=== PATIENT | female | born 1955 | race Caucasian/White ===

== ENCOUNTER 2019-02-10 09:01 | Outpatient (CLI) | payer OTHER ==
--- NOTE | 2019-02-10 14:29 | NM ---
NUCLEAR MEDICINE WHOLE BODY BONE SCAN: 02/10/19 HISTORY: Malignant neoplasm of the upper outer quadrant of the left breast. COMPARISON: 02/23/15. TECHNIQUE: Patient was administered 32 millicuries of technetium 99 MDP intravenously. After appropriate delay, whole body imaging is performed. FINDINGS: There are multiple areas of radiotracer localization involving the calvarium suggesting multifocal ca lvarial metastases. Uptake in the sinuses likely due to sinus disease. Uptake in both shoulders, both hips is also felt to be due to degenerative change. There is multifoca l uptake involving the posterior left and right ribs as well as the anterior right and to a lesser ex tent left ribs. Multifocal osseous metastases to the bony thorax is suspected. Additionally, there ma y be radiotracer uptake in the right scapula suggesting osseous metastases. There is increased radiot racer localization involving the posterior right pedicle at approximately the T7 level, posterior rig ht pedicle at T11, bilateral pedicles at T12, the majority of the L1 vertebral body as well as the ma jority of the L5 vertebral body. There does appear to be uptake involving the right inferior pubic ra mus and right superior pubic ramus. IMPRESSION: Findings compatible with multifocal osseous metastases. POS: TPC
[2019-02-10 23:03] LABS: Anion Gap 15 mmol/L (10-20); BUN (Urea Nitrogen) 11 mg/dL (9.8-20.1); Calc. Creatinine Clearance 0 mL/min (70-130); Calcium 8.4 mg/dL (7.8-10.44); Carbon Dioxide 20 mmol/L (23-31); Chloride 106 mmol/L (98-107); Estimated GFR-MDRD 71; Potassium 3.8 mmol/L (3.5-5.1); Sodium 137 mmol/L (136-145)
[2019-02-10 23:07] LABS: Glucose 58 mg/dL (80-115)
== END 2019-02-10 09:02 | disposition home or self-care (01) ==
LOC: NM 09:01
PROVIDERS: ATTEND Internal Medicine Hematology & Oncology
DX: C50.412 Malignant neoplasm of upper-outer quadrant of left female breast (principal); C79.51 Secondary malignant neoplasm of bone
CPT/HCPCS: 78306; 80048; A9503

== ENCOUNTER 2019-02-15 07:27 | Outpatient (CLI) | payer OTHER ==
--- NOTE | 2019-02-15 09:14 | CT ---
EXAM: CT chest, abdomen, and pelvis with IV contrast: HISTORY: Malignant neoplasm left breast, metastatic bone disease. COMPARISON: 02/20/2016 as well as bone scan on 02/10/2019. FINDINGS: CT THORAX: Lungs: No discrete pulmonary nodule or mass is seen. Passive atelectasis is present at each lung base . Pleura: Small bilateral pleural effusions are present. Lymph nodes: No lymphadenopathy. Mediastinum: Vascular calcifications are seen in the thoracic aorta. The thoracic aorta is normal in caliber. Chest wall: Postsurgical changes related to left mastectomy are again seen. The right subclavian Medi port catheter has been removed. CT ABDOMEN AND PELVIS: Liver: There are stable scattered subcentimeter too small to characterize hypodense lesions in each l obe of the liver with a larger hypodense lesion measuring 2.2 cm again seen within the central liver at the level of the confluence of the hepatic veins. Gallbladder: Within normal limits. Pancreas: Within normal limits. Spleen: Within normal limits. Adrenal glands: Within normal limits. Kidneys: Within normal limits. Urinary Bladder: The urinary bladder is unremarkable. Reproductive organs: Within normal limits for patient's age. Bowel: Normal in caliber. Adenopathy:No lymphadenopathy within the abdomen or pelvis. Peritoneum: No free fluid or fluid collection is seen. No free intraperitoneal gas is identified. Abdominal wall: No abnormalities seen. Vessels: Vascular calcifications are seen in the abdominal aorta and involving the iliac arteries. 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 Osseous structures: There has been interval development of multiple sclerotic and lytic osseous lesio ns involving bilateral ribs, spine, and involving the pelvis and visualized proximal bilateral femurs. There are nondisplaced pathological fractures involving the posterior bilateral sixth ribs an d posterior left seventh rib as well as a nondisplaced pathological fracture involving the right inferior pubic ramus. There are lytic and sclerotic metastatic lesions involving the L1 and L3 verteb ral bodies with wedge-shaped compression fracture involving the L1 vertebral body which probably represents pathological fracture. There is also irregularity of the superior and inferior endplates o f the L3 vertebral body. Mild wedge-shaped compression fracture T6 vertebral body of indeterminate age. Largest sclerotic metastatic lesion involving the right iliac bone measures 2.7 cm. Remainder of the sclerotic lesions seen throughout the osseous structures measure less than 1 cm. There is a sclerotic lesion present within the left scapula measuring less than 1 cm. Questionable lytic lesion within the distal left clavicle. IMPRESSION: 1. Interval development of diffuse osseous metastatic disease with sclerotic and lytic osseous metast atic lesions seen. There are evidence of pathological fractures involving bilateral posterior sixth ribs and left posterior seventh rib, and right inferior pubic ramus. A wedge-shaped compression fract ure is seen involving the L1 vertebral body which also may be pathological. Slight height loss along the central aspect of the superior and inferior endplates of the L3 vertebral body are also pre sent. 2. Small basilar pleural effusions and associated passive atelectasis. 3. Hypodense lesions scattered within each lobe of the liver overall stable from the prior study with stable focus of enhancement within the inferior aspect of the right hepatic lobe which again may relate to small vascular malformation. 4. No evidence of lymphadenopathy. 5. Left mastectomy. 6. Wedge-shaped compression fracture T6 vertebral body of indeterminate age.
--- NOTE | 2019-02-15 10:34 | CT ---
CT HEAD WITH AND WITHOUT CONTRAST: 02/15/2019 HISTORY: Left-sided breast cancer with osseous metastatic disease. COMPARISON: None. TECHNIQUE: Axial CT imaging is obtained at 5 mm intervals from the vertex, through the skull base, with and with out IV contrast. FINDINGS: The calvarial bone marrow density is mottled with multiple subtle areas of lucency within the calvari um, suspicious for numerous tiny osseous metastatic foci. The imaged paranasal sinuses and mastoid a ir cells are well aerated. The noncontrast enhanced imaging demonstrates no intracranial hemorrhage, midline shift, mass effect, or ventricular enlargement. The post contrast imaging demonstrates no abnormal enhancement within the brain parenchyma. IMPRESSION: No intracranial hemorrhage. No enhancing lesions are identified within the brain parenchyma. Raheel us tiny areas of lucency within the calvarium are suspicious for osseous metastatic disease, as seen on recent bone scan, performed 02/10/2019. POS: OFF
[2019-02-15] MEDS ORDERED: Iopamidol 370 76% 100 ML VIAL ONE (13:11)
== END 2019-02-15 07:28 | disposition home or self-care (01) ==
LOC: CT 07:27
PROVIDERS: ATTEND Internal Medicine Hematology & Oncology
DX: C50.412 Malignant neoplasm of upper-outer quadrant of left female breast (principal); C79.51 Secondary malignant neoplasm of bone; M84.58XA Pathological fracture in neoplastic disease, other specified site, initial encounter for fracture; J90 Pleural effusion, not elsewhere classified; J98.11 Atelectasis; Z90.12 Acquired absence of left breast and nipple
CPT/HCPCS: 70470; 71260; 74177; Q9967

== ENCOUNTER 2019-05-10 11:21 | Day surgery (SDC) | payer OTHER ==
[2019-05-10] MEDS ORDERED: Sodium Chloride 0.9% 20 ML ONE (11:52)
[2019-05-10] MEDS ORDERED: Acetaminophen 500 MG TAB PO PRN (11:59)
[2019-05-10] MEDS ORDERED: diphenhydrAMINE 25 MG CAP PO PRN (12:00)
[2019-05-10 16:34] VITALS: BP 111/54; TEMP 98.7
== END 2019-05-10 16:35 | disposition home or self-care (01) ==
LOC: ONC/OP 11:21
PROVIDERS: ATTEND Internal Medicine Hematology & Oncology
PROC: 30233N1 Transfusion of Nonautologous Red Blood Cells into Peripheral Vein, Percutaneous Approach (ICD-10-PCS; principal; 2019-05-10)
DX: D64.9 Anemia, unspecified (principal); D69.6 Thrombocytopenia, unspecified; Z91.018 Allergy to other foods
CPT/HCPCS: 36430; 86850; 86900; 86901; P9016; Q0163

== ENCOUNTER 2019-06-03 08:49 | Day surgery (SDC) | payer OTHER ==
[2019-06-03] MEDS ORDERED: Sodium Chloride 0.9% 20 ML ONE (09:07)
[2019-06-03] MEDS ORDERED: Acetaminophen 500 MG TAB PO SCH (09:45)
[2019-06-03] MEDS ORDERED: diphenhydrAMINE 25 MG CAP PO SCH (09:45)
[2019-06-03 12:46] VITALS: BP 126/60; TEMP 98.6
== END 2019-06-03 12:46 | disposition home or self-care (01) ==
LOC: ONC/OP 08:49
PROVIDERS: ATTEND Internal Medicine Hematology & Oncology
PROC: 30233N1 Transfusion of Nonautologous Red Blood Cells into Peripheral Vein, Percutaneous Approach (ICD-10-PCS; principal; 2019-06-03)
DX: D64.9 Anemia, unspecified (principal); D69.6 Thrombocytopenia, unspecified
CPT/HCPCS: 36430; 86850; 86900; 86901; P9016; Q0163

== ENCOUNTER 2019-06-28 08:57 | Outpatient (CLI) | payer OTHER ==
--- NOTE | 2019-06-28 10:47 | CT ---
EXAM: CT chest, abdomen, and pelvis with IV contrast: HISTORY: Left breast cancer with metastatic osseous disease. Follow-up evaluation. COMPARISON: 02/15/2019 FINDINGS: CT THORAX: Lungs: No pulmonary nodule or mass is visualized. Scattered linear atelectasis versus scarring is see n at each lung base. Pleura: Pleural effusions have resolved. Lymph nodes: No lymphadenopathy. Mediastinum: Vascular calcifications are seen in the thoracic aorta. Chest wall: Postsurgical changes related to left mastectomy are again seen. CT ABDOMEN AND PELVIS: Liver: Stable subcentimeter too small to characterize hypodense lesions are again seen throughout eac h lobe of the liver as well as a larger 2.3 cm fluid attenuation cystic lesion in the left hepatic lobe just anterior to the level of the hepatic IVC. This does measure slightly larger in size compare d to prior study. Gallbladder: Incompletely distended.\ Pancreas: Within normal limits. Spleen: Within normal limits. Adrenal glands: Within normal limits. Kidneys: There is mild bilateral hydronephrosis which is an interval change. The ureters do not appea r to be particularly dilated bilaterally. Kidneys otherwise demonstrate a normal CT appearance. Urinary Bladder: Incompletely distended but grossly normal in appearance. Reproductive organs: There is suggestion of a subtle hypodense lesion seen in the posterior aspect kate dy of the uterus. This may be artifactual, but a uterine fibroid is a possibility. Pelvic ultrasound may be helpful for further evaluation. Bowel: Normal in caliber. Adenopathy:No lymphadenopathy within the abdomen or pelvis. Peritoneum: No free fluid or fluid collection is seen. No free intraperitoneal gas is identified. Abdominal wall: No abnormalities seen. Osseous structures: There is diffuse osseous metastatic disease with lytic and sclerotic lesions seen involving multiple bilateral ribs, essentially all of the vertebral bodies, pelvis, each scapula, and proximal femurs. The metastatic lesions do appear to be progressed involving the thoracic spine a nd pelvis. Compression fractures involving the L1 and L3 vertebral bodies are again noted. Compression fractures of the T6, T7, and T8 vertebral bodies are also seen with mild wedge-shaped com pression fractures of these vertebral bodies. There are evidence of rib fractures bilaterally likely related to pathological fractures. IMPRESSION: 1. Diffuse osseous metastatic disease which has progressed from prior study with wedge-shaped peter jorge luis fractures of thoracic and lumbar vertebral bodies likely attributable to pathological fractures. In addition, there are pathological fractures seen scattered involving ribs bilaterally. 2. Resolution of bilateral pleural effusions. 3. Scattered hypodense lesions again seen in each lobe of the liver. Small enhancing focus in the inf erior aspect right hepatic lobe is less well delineated on today's exam. 4. Left mastectomy. 5. No evidence of lymphadenopathy. 6. Question of hypodense lesion in the posterior aspect of the uterus. However, this is not well-defi anel. Follow-up pelvic ultrasound may be helpful for further evaluation. 7. Mild bilateral hydronephrosis which is an interval change. The exact etiology is uncertain. The ur eters are not dilated bilaterally.
[2019-06-28] MEDS ORDERED: Iopamidol 370 76% 100 ML VIAL ONE (13:16)
--- NOTE | 2019-06-28 15:30 | NM ---
BONE SCAN: The patient was given 30 mCi of technetium-MDP IV. Whole body skeletal images obtained. INDICATION: Breast cancer with osseous metastatic disease. Comparison made to prior bone scan dated 02/10/19. FINDINGS: There has been progression of metastatic bone disease when compared to the prior bone scan. Increasin g activity is now seen in the thoracic and upper lumbar spine when compared to prior study. Numerous rib lesions are again seen, which appear more extensive than on the prior study. There are blotchy le sions involving the calvarium on the frontal projection. Activity through the left sacrum is new from the prior study on the AP view. There are areas of abnor mal activity in the pelvis which appears to involve both the ischium and hip regions. Activity at the left hip is again seen, similar to the prior study. Activity in the right hip seen on the posterior images are also similar to the prior study. IMPRESSION: Evidence of diffuse osseous metastatic disease again noted. Activity in the thoracic spine and rib ca ge appear to have progressed since the prior exam. Activity in the anterior left sacrum has increased since the prior exam. The other pelvic activity appears relatively stable. POS: VINCENT
== END 2019-06-28 08:58 | disposition home or self-care (01) ==
LOC: CT 08:57
PROVIDERS: ATTEND Internal Medicine Hematology & Oncology
DX: C50.412 Malignant neoplasm of upper-outer quadrant of left female breast (principal); C79.51 Secondary malignant neoplasm of bone; R97.1 Elevated cancer antigen 125 [CA 125]; K76.89 Other specified diseases of liver; K76.9 Liver disease, unspecified; M48.56XA Collapsed vertebra, not elsewhere classified, lumbar region, initial encounter for fracture; M48.54XA Collapsed vertebra, not elsewhere classified, thoracic region, initial encounter for fracture; N13.30 Unspecified hydronephrosis; Z90.12 Acquired absence of left breast and nipple
CPT/HCPCS: 71260; 74177; 78306; 82565; A9503; Q9967

== ENCOUNTER 2019-07-01 08:51 | Day surgery (SDC) | payer OTHER ==
[2019-07-01] MEDS ORDERED: Acetaminophen 500 MG TAB PO SCH (09:15)
[2019-07-01] MEDS ORDERED: diphenhydrAMINE 25 MG CAP PO SCH (09:15)
[2019-07-01] MEDS ORDERED: diphenhydrAMINE 50 MG/ML VIAL ONE (11:44)
[2019-07-01] MEDS ORDERED: diphenhydrAMINE 50 MG/ML VIAL IVP SCH (12:00)
[2019-07-01] MEDS ORDERED: Sodium Chloride 0.9% 30 ML ONE (14:19)
[2019-07-01 15:20] VITALS: TEMP 98.6
[2019-07-01 15:24] VITALS: BP 126/63
== END 2019-07-01 15:30 | disposition home or self-care (01) ==
LOC: ONC/OP 08:51
PROVIDERS: ATTEND Internal Medicine Medical Oncology
PROC: 30233N1 Transfusion of Nonautologous Red Blood Cells into Peripheral Vein, Percutaneous Approach (ICD-10-PCS; principal; 2019-07-01)
DX: D64.9 Anemia, unspecified (principal); Z91.018 Allergy to other foods
CPT/HCPCS: 36430; 86850; 86900; 86901; J1200; P9016; Q0163

== ENCOUNTER 2019-07-20 12:48 | Observation (INO) | payer OTHER ==
[2019-07-20] MEDS ORDERED: Iopamidol-370 76% 500 ML 1 ML ONE (12:54)
[2019-07-20 13:40] LABS: Hemoglobin 6.9 g/dL (12.0-16.0); Mean Corpuscular HGB CONC 35.4 g/dL (32.0-36.0); Mean Corpuscular Volume 98.9 fL (78.0-98.0); Mean Platelet Volume 13.8 fL (7.4-10.4); Platelet Count 19 thou/uL (130-400); RBC Distribution Width 18.1 % (11.5-14.5); Red Blood Cell (RBC) Count 1.96 mill/uL (4.20-5.40); White Blood Cell (WBC) Count 1.5 thou/uL (4.8-10.8)
[2019-07-20 13:53] LABS: ALT (SGPT) 46 U/L (8-55); AST (SGOT) 111 U/L (5-34); Albumin 3.1 g/dL (3.4-4.8); Alkaline Phosphatase 144 U/L (40-110); Anion Gap 16 mmol/L (10-20); BUN (Urea Nitrogen) 14 mg/dL (9.8-20.1); Calc. Creatinine Clearance 0 mL/min (70-130); Carbon Dioxide 18 mmol/L (23-31); Chloride 107 mmol/L (98-107); Estimated GFR-MDRD 76; Globulin 2.7 g/dL (2.4-3.5); Glucose 102 mg/dL (80-115); Potassium 3.5 mmol/L (3.5-5.1); Protein, Total 5.8 g/dL (6.0-8.3); Sodium 137 mmol/L (136-145)
[2019-07-20 14:04] LABS: Anisocytosis MODERATE=16-30 cells (100X) (0-5/hpf); Band 5 % (5-11); Eosinophils 1 % (0-10); Hypochromia SLIGHT = 6-15 cells (100X) (0-5/hpf); Lymphocytes 50 % (21-51); MDiff Complete? YES; Macrocytosis SLIGHT = 6-15 cells (100X) (0-5/hpf); Monocytes 4 % (0-10); Neutrophil 40 % (42-75); Platelet Morphology Comment Appears Decreased; Polychromasia SLIGHT = 2-3 cells (100X) (0-2/hpf); Reflex for Review?? YES; Schistocytes SLIGHT = 2-5 cells (100X) (0-1/hpf); Tear Drops SLIGHT = 2-5 cells (100X) (0-1/hpf)
[2019-07-20] MEDS ORDERED: diphenhydrAMINE 50 MG/ML VIAL ONE (15:32)
--- NOTE | 2019-07-20 16:12 | RAD ---
EXAM: CHEST ONE VIEW HISTORY: Dyspnea. Neutropenic. COMPARISON: 02/21/2015 FINDINGS: Right subclavian Mediport catheter has been removed. The cardiac silhouette and pulmonary vasculature are within normal limits for the portable technique of the study. The lungs are clear. There are scattered areas of sclerosis and heterogeneity involving the ribs bilaterally related to osseous meta static disease which was seen on prior CT thorax on 06/28/2019. Vascular calcifications are seen in the thoracic aorta. Radiopaque catheter overlies the left supraclavicular region. No other interval c hange. IMPRESSION: 1. Scattered areas of sclerosis and heterogeneity involving bilateral ribs suggesting osseous metasta tic disease. 2. No acute cardiopulmonary process.
[2019-07-20 18:38] LABS: Troponin I Less than 0.010 ng/mL (< 0.028)
[2019-07-20] MEDS ORDERED: Acetaminophen 500 MG TAB ONE (19:03)
[2019-07-20] MEDS ORDERED: Acetaminophen 650 MG Suppository PR PRN (21:35)
[2019-07-20] MEDS ORDERED: Acetaminophen 325 MG TAB PO PRN (21:35)
[2019-07-20 21:42] VITALS: BMI 22.1
[2019-07-20 21:48] LABS: Troponin I Less than 0.010 ng/mL (< 0.028)
[2019-07-20] MEDS: Sodium Chloride 0.9% 1,000 ML IV SCH (22:47)
--- NOTE | 2019-07-20 23:43 | HP ---
TIME OF ASSESSMENT: 2100 hours. CHIEF COMPLAINT: Shortness of breath. HISTORY OF PRESENT ILLNESS: Ms. Gimenez is a very pleasant 63-year-old woman, with metastatic breast cancer to the bones, who presents with generalized weakness and shortness of breath. The patient states she has been short of breath for the last couple of months, but she manages to stay very active and is able to walk rather quickly. She states over the last few days, she has noted increasing shortness of breath with mild exertion. Denies any chest pain. Has not had any cough or hemoptysis. No recent fevers, chills, or sweats. Denies any nausea or vomiting. No abdominal pain or cramping. States she is known to have issues with anemia and has required three blood transfusions in the past, the last one was given in the beginning of July. Denies any signs or symptoms of bleeding. Also reports a history of low platelets. ED COURSE: In the emergency department, the patient underwent an EKG showing a normal sinus rhythm with a heart rate of 93. No ST changes or T-wave abnormalities. The patient was given 2 units of packed red blood cells and did develop a low-grade temperature of 99.9 during the transfusion, therefore treated with Tylenol and Benadryl. Laboratory studies had demonstrated her hemoglobin also was 6.9. Her platelets were 19,000. A unit of platelets was ordered as well, but has not yet been given. ADDITIONAL LABORATORY STUDIES: Notable for an elevated D-dimer of 2.24. Sodium was 137, potassium 3.5, BUN 14, creatinine 0.77, GFR 76, glucose 102, AST 111, alkaline phosphatase 144. Troponin negative x3. Chest x-ray obtained showed scattered areas of sclerosis and had rigidity involving bilateral ribs suggesting osseous metastasis. No acute cardiopulmonary process. PAST MEDICAL HISTORY: Metastatic breast cancer, undergoing chemotherapy under the direction of Dr. Calvillo. PAST SURGICAL HISTORY: 1. Tonsillectomy. 2. Left breast biopsy in January 2015. 3. MediPort placement in January 2014. 4. Left mastectomy. SOCIAL HISTORY: The patient denies any current tobacco use. The patient did smoke cigarettes previously. Denies any alcohol consumption or illicit drug use. ALLERGIES: 1. AVOCADO. 2. BRAZIL NUTS. CURRENT MEDICATIONS: 1. Tylenol Extra Strength. 2. Ibrance. PHYSICAL EXAMINATION: GENERAL: The patient appears well developed, well nourished, who is in no acute distress. VITAL SIGNS: Temperature 98.3, pulse 100, respirations 17, O2 saturation 95% on room air, and blood pressure 150/85. HEENT: Normocephalic and atraumatic. Pupils are equal, round, and reactive to light. Sclerae icterus. Oropharynx is clear. NECK: Supple. No lymphadenopathy. LUNGS: Clear to auscultation bilaterally without any wheezes, rales, or rhonchi. CARDIAC: Regular rate and rhythm without audible murmurs, rubs, or gallops. ABDOMEN: Soft, nontender, nondistended. Normoactive bowel sounds present. No guarding or rigidity. No renal angle tenderness. EXTREMITIES: No lower leg swelling or edema. NEUROLOGIC: Alert and oriented x3. SKIN: Warm and dry. INVESTIGATIONS: As mentioned above in HPI. IMPRESSION AND PLAN: Ms. Gimenez is a very pleasant 63-year-old woman with known metastatic breast cancer, who is receiving chemotherapy under the direction of Dr. Calvillo, being admitted for symptomatic anemia, known to require blood transfusions in the past. Hemoglobin today of 6.9, and the patient is without any signs or symptoms of bleeding. She is also noted to be thrombocytopenic with a platelet count of 19,000. Two units of packed red blood cells were given in the ER and she developed a transfusion related fever. She was medicated with Tylenol and Benadryl. The patient cleared to proceed with platelet transfusion. Her D-dimer was elevated with initial blood tests. Therefore, we will obtain a CT angiogram to rule out pulmonary embolism. The patient without any complaints at present. We will continue to monitor the patient overnight. Repeat laboratory studies in the morning. Oncology consult has been placed. Famotidine started for GI prophylaxis. Code status, full. Surrogate decision maker is her , Chuy Gimenez. Case discussed with Dr. Mccoy, who agrees with plan of care as described above. Job ID: [id number]
[2019-07-21] MEDS: Sodium Chloride 0.9% 1,000 ML IV SCH (00:40)
--- NOTE | 2019-07-21 06:43 | CT ---
CT PULMONARY ANGIOGRAM WITH IV CONTRAST AND 3D POSTPROCESSING: Date: 07/20/2019 HISTORY: Shortness of breath, elevated D-Dimer. Left breast cancer. FINDINGS: There is good contrast opacification of the pulmonary arterial vasculature without filling defects to suggest pulmonary embolism. The thoracic aorta is well opacified without aneurysm or dissection. No lobar consolidation. No pneumothoraces seen. There is a 4 mm nodule in the peripheral aspect of the r ight upper lobe not seen on the previous study of 06/28/2019. No pleural or pericardial effusions are seen. Low density lesions in the visualized portions of the liver again seen. Diffuse metastatic disease in the bones again seen. IMPRESSION: 1. No CT evidence of pulmonary embolism. 2. New 4 mm right lung nodule since 06/28/2019. POS: OFF
[2019-07-21 06:48] LABS: Anion Gap 11 mmol/L (10-20); BUN (Urea Nitrogen) 12 mg/dL (9.8-20.1); Calc. Creatinine Clearance 69 mL/min (70-130); Calcium 7.7 mg/dL (7.8-10.44); Carbon Dioxide 19 mmol/L (23-31); Chloride 110 mmol/L (98-107); Estimated GFR-MDRD 82; Glucose 97 mg/dL (80-115); Potassium 3.4 mmol/L (3.5-5.1); Sodium 137 mmol/L (136-145)
[2019-07-21 06:49] LABS: #Lymphocytes 0.8 thou/uL (1.20-3.40); #Monocytes 0.1 thou/uL (0.11-0.59); #Neutrophils 0.7 thou/uL (1.40-6.50); %Lymphocytes 48.4 % (21.0-51.0); %Monocytes 5.2 % (0.0-10.0); %Neutrophils 45.5 % (42.0-75.0); Hemoglobin 8.8 g/dL (12.0-16.0); Mean Corpuscular HGB CONC 35.8 g/dL (32.0-36.0); Mean Corpuscular Hemoglobin 32.6 pg (27.0-31.0); Mean Corpuscular Volume 91.1 fL (78.0-98.0); Mean Platelet Volume 10.7 fL (7.4-10.4); Platelet Count 35 thou/uL (130-400); RBC Distribution Width 16.6 % (11.5-14.5); Red Blood Cell (RBC) Count 2.69 mill/uL (4.20-5.40); White Blood Cell (WBC) Count 1.6 thou/uL (4.8-10.8)
[2019-07-21 06:50] LABS: Platelet Morphology Comment Appears Decreased
[2019-07-21] MEDS ORDERED: Famotidine/PF 20 mg/2ml Vial SLOW IVP SCH (09:00)
[2019-07-21] MEDS ORDERED: FLU VACC QS2019-20(6MOS UP)/PF 60 MCG/0.5 ML SYRINGE IM ONE (09:00)
[2019-07-21 10:57] VITALS: TEMP 98.6
[2019-07-21] MEDS ORDERED: Potassium Chloride 20 MEQ TAB PO SCH (13:45)
[2019-07-21 14:52] VITALS: BP 114/72
--- NOTE | 2019-07-21 23:12 | DIS ---
DATE OF ADMISSION: 07/20/2019 DATE OF DISCHARGE: 07/21/2019 DISCHARGE DISPOSITION: Home. FOLLOWUP: 1. Follow up with primary care physician, Dr. Morley, in 1 week. 2. Follow up with Oncology, Dr. Calvillo, as scheduled. ALLERGIES: NO KNOWN DRUG ALLERGIES. DISCHARGE MEDICATIONS: Same as admission medications. BRIEF HOSPITAL COURSE: The patient is a 63-year-old female with metastatic breast cancer, presented to the hospital with generalized weakness along with shortness of breath. A workup in the emergency room was consistent with symptomatic anemia with a hemoglobin of 6.9. She received 2 units of PRBC. She also received 1 unit of platelet due to platelet of 19. There was no active bleeding reported. She was advised to follow up with Oncology Service as outpatient. Dr. Calvillo's office was notified. Shortness of breath has improved after blood transfusion. FINAL DIAGNOSES: 1. Symptomatic anemia, improved. 2. Metastatic breast cancer. 3. Pancytopenia suspected secondary to chemotherapy. 4. Chronic kidney disease stage 2. 5. Hypokalemia. The patient understands the above plan of care. Job ID: [id number]
== END 2019-07-21 15:35 | disposition home or self-care (01) ==
LOC: ERS 12:48 → T4-B 16:07
PROVIDERS: ADMIT Emergency Medicine; ATTEND Emergency Medicine
DX: D64.9 Anemia, unspecified (principal); C50.919 Malignant neoplasm of unspecified site of unspecified female breast; C79.51 Secondary malignant neoplasm of bone; D61.818 Other pancytopenia; N18.2 Chronic kidney disease, stage 2 (mild); E87.6 Hypokalemia; Z87.891 Personal history of nicotine dependence; Z79.899 Other long term (current) drug therapy; Z91.018 Allergy to other foods; R91.1 Solitary pulmonary nodule
CPT/HCPCS: 36415; 36430; 71045; 71275; 80048; 80053; 82248; 83615; 84100; 84484; 84550; 85025; 85060; 85379; 86300; 86850; 86900; 86901; 90471; 90732; 93005; 96361; 96374; 96375; G0009; G0378; J1200; P9016; P9035; Q9967; S0028

== ENCOUNTER 2019-08-05 08:51 | Day surgery (SDC) | payer OTHER ==
[2019-08-05] MEDS ORDERED: Acetaminophen 500 MG TAB PO SCH (10:30)
[2019-08-05] MEDS ORDERED: diphenhydrAMINE 25 MG CAP PO SCH (10:30)
[2019-08-05 13:44] VITALS: TEMP 98.7
[2019-08-05 14:00] VITALS: BP 146/60
== END 2019-08-05 14:03 | disposition home or self-care (01) ==
LOC: ONC/OP 08:51
PROVIDERS: ATTEND Internal Medicine Hematology & Oncology
PROC: 30233N1 Transfusion of Nonautologous Red Blood Cells into Peripheral Vein, Percutaneous Approach (ICD-10-PCS; principal; 2019-08-05)
DX: D64.9 Anemia, unspecified (principal); D69.6 Thrombocytopenia, unspecified; Z91.018 Allergy to other foods
CPT/HCPCS: 36430; 86850; 86900; 86901; P9016; Q0163

== ENCOUNTER 2019-08-19 11:29 | Day surgery (SDC) | payer OTHER ==
[2019-08-19] MEDS ORDERED: Acetaminophen 500 MG TAB PO SCH (12:00)
[2019-08-19] MEDS ORDERED: diphenhydrAMINE 25 MG CAP PO SCH (12:00)
[2019-08-19 14:19] VITALS: BP 119/56; TEMP 98.4
== END 2019-08-19 14:20 | disposition home or self-care (01) ==
LOC: ONC/OP 11:29
PROVIDERS: ATTEND Internal Medicine Hematology & Oncology
PROC: 30233R1 Transfusion of Nonautologous Platelets into Peripheral Vein, Percutaneous Approach (ICD-10-PCS; principal; 2019-08-19)
DX: D69.6 Thrombocytopenia, unspecified (principal); D64.9 Anemia, unspecified; Z91.018 Allergy to other foods
CPT/HCPCS: 36430; 80053; 82248; 83615; 84100; 84550; 86300; 86850; 86900; 86901; P9035; Q0163

== ENCOUNTER 2019-08-26 08:51 | Day surgery (SDC) | payer OTHER ==
[2019-08-26] MEDS ORDERED: Acetaminophen 500 MG TAB PO SCH (09:15)
[2019-08-26] MEDS ORDERED: diphenhydrAMINE 25 MG CAP PO SCH (09:15)
[2019-08-26] MEDS ORDERED: Sodium Chloride 0.9% 30 ML ONE (09:18)
[2019-08-26] MEDS ORDERED: diphenhydrAMINE 50 MG/ML VIAL ONE (12:05)
[2019-08-26] MEDS ORDERED: diphenhydrAMINE 50 MG/ML VIAL IVP SCH (12:45)
[2019-08-26 13:44] LABS: Hemoglobin 6.8 g/dL (12.0-16.0); Mean Corpuscular HGB CONC 35.7 g/dL (32.0-36.0); Mean Corpuscular Hemoglobin 32.6 pg (27.0-31.0); Mean Corpuscular Volume 91.4 fL (78.0-98.0); Mean Platelet Volume 7.9 fL (7.4-10.4); Platelet Count 91 thou/uL (130-400); RBC Distribution Width 16.5 % (11.5-14.5); Red Blood Cell (RBC) Count 2.09 mill/uL (4.20-5.40); White Blood Cell (WBC) Count 5.1 thou/uL (4.8-10.8)
[2019-08-26 14:01] LABS: Band 18 % (5-11); Eosinophils 2 % (0-10); Lymphocytes 59 % (21-51); MDiff Complete? YES; Metamyelocyte 3 % (0-0); Monocytes 3 % (0-10); Neutrophil 15 % (42-75); Platelet Morphology Comment Appears Decreased; Polychromasia SLIGHT = 2-3 cells (100X) (0-2/hpf); Spherocytes SLIGHT = 1-5 cells (100X) (None Seen)
[2019-08-26 14:07] VITALS: BP 126/60; TEMP 98.2
== END 2019-08-26 14:08 | disposition home or self-care (01) ==
LOC: ONC/OP 08:51
PROVIDERS: ATTEND Internal Medicine Hematology & Oncology
PROC: 30233R1 Transfusion of Nonautologous Platelets into Peripheral Vein, Percutaneous Approach (ICD-10-PCS; principal; 2019-08-26)
DX: D64.9 Anemia, unspecified (principal); D69.6 Thrombocytopenia, unspecified; Z91.018 Allergy to other foods
CPT/HCPCS: 36415; 36430; 85025; 86850; 86900; 86901; J1200; P9035; Q0163

== ENCOUNTER 2019-08-30 12:20 | Day surgery (SDC) | payer OTHER ==
[2019-08-30] MEDS ORDERED: Acetaminophen 500 MG TAB PO SCH (12:45)
[2019-08-30] MEDS ORDERED: diphenhydrAMINE 25 MG CAP PO SCH (12:45)
[2019-08-30 15:25] VITALS: BP 118/59; TEMP 98.5
== END 2019-08-30 15:32 | disposition home or self-care (01) ==
LOC: ONC/OP 12:20
PROVIDERS: ATTEND Internal Medicine Hematology & Oncology
PROC: 30233R1 Transfusion of Nonautologous Platelets into Peripheral Vein, Percutaneous Approach (ICD-10-PCS; principal; 2019-08-30)
DX: D64.9 Anemia, unspecified (principal); D69.6 Thrombocytopenia, unspecified; Z91.018 Allergy to other foods
CPT/HCPCS: 36415; 36430; 85025; 86850; 86900; 86901; P9035; Q0163

== ENCOUNTER 2019-09-02 07:27 | Day surgery (SDC) | payer OTHER ==
[2019-09-02] MEDS ORDERED: Sodium Chloride 0.9% 20 ML ONE (09:15)
[2019-09-02] MEDS ORDERED: Heparin 1,000 UNITS/ML VIAL ONE (09:32)
--- NOTE | 2019-09-02 09:45 | SPC ---
Ultrasound and Fluoroscopic guided right upper extremity PICC placement HISTORY: Patient with low platelet count. Patient needs platelet transfusion. Difficult intravenous a ccess. FINDINGS: Informed consent obtained prior to the procedure. An appropriate access site was determined with ultrasound guidance. The area was then meticulously pr epped and draped in usual sterile fashion. Skin overlying the right basilic vein anesthetized with 1% buffered lidocaine. Utilizing direct sonog raphic guidance, vascular access is obtained via the right basilic vein, and an 0.018in guidewire was advanced to the distal SVC. Intravascular length is calculated at 32.5 cm, and the PICC is cut ac cordingly. Needle is removed and replaced with a peel-away sheath. The PICC was advanced over the wire. Wire and peel-away sheath were removed. The tip of the catheter overlies the distal SVC. The catheter was accessed and aspirated/flushed easily. Exposure data: 0.4 minutes of fluoroscopic time 1041 mGy centimeter squared FINDINGS: Technically successful placement of a 32.5 centimeter single lumen 4 Wolof right upper extremity PIC C line. IMPRESSION: Successful ultrasound guided placement of a right upper extremity PICC.
[2019-09-02] MEDS ORDERED: diphenhydrAMINE 25 MG CAP PO SCH (10:30)
[2019-09-02] MEDS ORDERED: Acetaminophen 500 MG TAB PO SCH (10:30)
[2019-09-02 14:57] VITALS: BP 136/60; TEMP 98.3
== END 2019-09-02 15:02 | disposition home or self-care (01) ==
LOC: SPEC 07:27 → ONC/OP 15:02
PROVIDERS: ATTEND Internal Medicine Hematology & Oncology
PROC: 02HV33Z Insertion of Infusion Device into Superior Vena Cava, Percutaneous Approach (ICD-10-PCS; principal; 2019-09-02)
DX: D69.6 Thrombocytopenia, unspecified (principal); D70.8 Other neutropenia; C50.412 Malignant neoplasm of upper-outer quadrant of left female breast; C79.51 Secondary malignant neoplasm of bone; Z91.018 Allergy to other foods
CPT/HCPCS: 36430; 36569; 86850; 86900; 86901; C1751; J1642; P9016; P9035

== ENCOUNTER → 2019-09-06 | Day surgery (SDC) | payer OTHER ==
[~2019-09-06] MED LIST: Acetaminophen 500 MG TAB PO SCH; Sodium Chloride 0.9% 20 ML ONE; diphenhydrAMINE 25 MG CAP PO SCH
[2019-09-06 16:03] VITALS: BP 129/60; TEMP 98.1
== END ==
LOC: ONC/OP 12:55
PROVIDERS: ATTEND Internal Medicine Hematology & Oncology
PROC: 30233R1 Transfusion of Nonautologous Platelets into Peripheral Vein, Percutaneous Approach (ICD-10-PCS; principal; 2019-09-06)
DX: D64.9 Anemia, unspecified (principal); D69.6 Thrombocytopenia, unspecified; Z91.018 Allergy to other foods
CPT/HCPCS: 36415; 36430; 85025; 86850; 86900; 86901; 99211; G0463; J1642; P9035; Q0163

== ENCOUNTER 2019-09-13 13:06 | Day surgery (SDC) | payer OTHER ==
[2019-09-13] MEDS ORDERED: diphenhydrAMINE 25 MG CAP PO SCH (13:30)
[2019-09-13] MEDS ORDERED: Acetaminophen 500 MG TAB PO SCH (13:30)
[2019-09-13 15:19] VITALS: BP 116/57; TEMP 98.4
[2019-09-13 15:56] LABS: Hemoglobin 5.4 g/dL (12.0-16.0); Mean Corpuscular HGB CONC 36.3 g/dL (32.0-36.0); Mean Corpuscular Hemoglobin 32.2 pg (27.0-31.0); Mean Corpuscular Volume 88.8 fL (78.0-98.0); Mean Platelet Volume 8.8 fL (7.4-10.4); Platelet Count 125 thou/uL (130-400); RBC Distribution Width 17.2 % (11.5-14.5); Red Blood Cell (RBC) Count 1.69 mill/uL (4.20-5.40); White Blood Cell (WBC) Count 7.4 thou/uL (4.8-10.8)
[2019-09-13 16:22] LABS: Anisocytosis MODERATE=16-30 cells (100X) (0-5/hpf); Band 17 % (5-11); Lymphocytes 54 % (21-51); MDiff Complete? YES; Metamyelocyte 3 % (0-0); Monocytes 3 % (0-10); Myelocyte 1 % (0-0); Neutrophil 18 % (42-75); Nucleated RBC 1 % (0); Platelet Morphology Comment Appears Decreased; Polychromasia MODERATE = 3-4 cells (100X) (0-2/hpf); Reactive Lymphocytes 4 % (0-10)
== END 2019-09-13 15:20 | disposition home or self-care (01) ==
LOC: ONC/OP 13:06
PROVIDERS: ATTEND Internal Medicine Hematology & Oncology
PROC: 30233R1 Transfusion of Nonautologous Platelets into Peripheral Vein, Percutaneous Approach (ICD-10-PCS; principal; 2019-09-13)
DX: D64.9 Anemia, unspecified (principal); D69.6 Thrombocytopenia, unspecified; Z91.018 Allergy to other foods
CPT/HCPCS: 36415; 36430; 85025; 86850; 86900; 86901; 99211; G0463; P9035; Q0163

== ENCOUNTER → 2019-09-14 | Day surgery (SDC) | payer OTHER ==
[2019-09-14 12:53] VITALS: BP 120/83; TEMP 98.6
[2019-09-14 13:52] LABS: Hemoglobin 7.3 g/dL (12.0-16.0); Mean Corpuscular HGB CONC 35.4 g/dL (32.0-36.0); Mean Corpuscular Volume 84.8 fL (78.0-98.0); Mean Platelet Volume 9.8 fL (7.4-10.4); Platelet Count 26 thou/uL (130-400); RBC Distribution Width 15.5 % (11.5-14.5); Red Blood Cell (RBC) Count 2.44 mill/uL (4.20-5.40); White Blood Cell (WBC) Count 5.8 thou/uL (4.8-10.8)
[2019-09-14 14:21] LABS: Anisocytosis SLIGHT = 6-15 cells (100X) (0-5/hpf); Band 14 % (5-11); Eosinophils 1 % (0-10); Lymphocytes 58 % (21-51); MDiff Complete? YES; Metamyelocyte 1 % (0-0); Monocytes 3 % (0-10); Neutrophil 19 % (42-75); Nucleated RBC 2 % (0); Platelet Morphology Comment Appears Decreased; Polychromasia MODERATE = 3-4 cells (100X) (0-2/hpf); Reactive Lymphocytes 4 % (0-10)
== END ==
LOC: ONC/OP 08:23
PROVIDERS: ATTEND Internal Medicine Hematology & Oncology
PROC: 30233N1 Transfusion of Nonautologous Red Blood Cells into Peripheral Vein, Percutaneous Approach (ICD-10-PCS; principal; 2019-09-14)
DX: D64.9 Anemia, unspecified (principal); D69.6 Thrombocytopenia, unspecified; Z91.018 Allergy to other foods
CPT/HCPCS: 36430; 85025; 86850; 86900; 86901; J1642; P9016; Q0163

== ENCOUNTER 2019-09-16 14:13 | Day surgery (SDC) | payer OTHER ==
[2019-09-16] MEDS ORDERED: Acetaminophen 500 MG TAB PO SCH (14:30)
[2019-09-16] MEDS ORDERED: diphenhydrAMINE 25 MG CAP PO SCH (14:30)
[2019-09-16] MEDS ORDERED: Sodium Chloride 0.9% 20 ML ONE (14:49)
[2019-09-16 17:23] VITALS: TEMP 97.8
[2019-09-16 17:28] VITALS: BP 114/76
== END 2019-09-16 17:35 | disposition home or self-care (01) ==
LOC: ONC/OP 14:13
PROVIDERS: ATTEND Internal Medicine Hematology & Oncology
PROC: 30233R1 Transfusion of Nonautologous Platelets into Peripheral Vein, Percutaneous Approach (ICD-10-PCS; principal; 2019-09-16)
DX: D64.9 Anemia, unspecified (principal); D69.6 Thrombocytopenia, unspecified; Z91.018 Allergy to other foods
CPT/HCPCS: 36430; 80053; 82248; 83615; 84100; 84550; 86300; 86850; 86900; 86901; J1642; P9035; Q0163

== ENCOUNTER 2019-09-20 09:21 | Day surgery (SDC) | payer OTHER ==
[2019-09-20] MEDS ORDERED: Acetaminophen 500 MG TAB PO SCH (09:45)
[2019-09-20] MEDS ORDERED: diphenhydrAMINE 25 MG CAP PO SCH (09:45)
[2019-09-20] MEDS ORDERED: Sodium Chloride 0.9% 30 ML ONE (10:49)
[2019-09-20 16:32] VITALS: BP 110/64; TEMP 98.7
== END 2019-09-20 16:37 | disposition home or self-care (01) ==
LOC: ONC/OP 09:21
PROVIDERS: ATTEND Internal Medicine Hematology & Oncology
PROC: 30233N1 Transfusion of Nonautologous Red Blood Cells into Peripheral Vein, Percutaneous Approach (ICD-10-PCS; principal; 2019-09-20)
PROC: 30233R1 Transfusion of Nonautologous Platelets into Peripheral Vein, Percutaneous Approach (ICD-10-PCS; principal; 2019-09-20)
DX: D64.9 Anemia, unspecified (principal); D69.6 Thrombocytopenia, unspecified; Z91.018 Allergy to other foods
CPT/HCPCS: 36430; 86850; 86900; 86901; 99211; G0463; J1642; P9016; P9035; Q0163

== ENCOUNTER 2019-09-23 14:19 | Day surgery (SDC) | payer OTHER ==
[2019-09-23] MEDS ORDERED: diphenhydrAMINE 25 MG CAP PO SCH (15:00)
[2019-09-23] MEDS ORDERED: Acetaminophen 500 MG TAB PO SCH (15:00)
[2019-09-23 16:49] VITALS: BP 107/58; TEMP 98.8
== END 2019-09-23 16:49 | disposition home or self-care (01) ==
LOC: ONC/OP 14:19
PROVIDERS: ATTEND Internal Medicine Hematology & Oncology
PROC: 30233N1 Transfusion of Nonautologous Red Blood Cells into Peripheral Vein, Percutaneous Approach (ICD-10-PCS; principal; 2019-09-23)
PROC: 30233R1 Transfusion of Nonautologous Platelets into Peripheral Vein, Percutaneous Approach (ICD-10-PCS; principal; 2019-09-23)
DX: D64.9 Anemia, unspecified (principal); D69.6 Thrombocytopenia, unspecified; Z91.018 Allergy to other foods
CPT/HCPCS: 36430; 86850; 86900; 86901; P9035; Q0163

== ENCOUNTER 2019-09-27 08:33 | Day surgery (SDC) | payer OTHER ==
[2019-09-27] MEDS ORDERED: Sodium Chloride 0.9% 20 ML ONE (09:34)
[2019-09-27] MEDS ORDERED: diphenhydrAMINE 25 MG CAP PO SCH (09:45)
[2019-09-27] MEDS ORDERED: Acetaminophen 500 MG TAB PO SCH (09:45)
[2019-09-27 15:13] LABS: Hemoglobin 7.1 g/dL (12.0-16.0); Mean Corpuscular HGB CONC 36.3 g/dL (32.0-36.0); Mean Corpuscular Hemoglobin 32.9 pg (27.0-31.0); Mean Corpuscular Volume 90.6 fL (78.0-98.0); RBC Distribution Width 14.6 % (11.5-14.5); Red Blood Cell (RBC) Count 2.14 mill/uL (4.20-5.40); White Blood Cell (WBC) Count 3.3 thou/uL (4.8-10.8)
[2019-09-27 15:14] VITALS: TEMP 99
[2019-09-27 15:15] VITALS: BP 95/54
[2019-09-27 15:35] LABS: Anisocytosis SLIGHT = 6-15 cells (100X) (0-5/hpf); Band 18 % (5-11); Lymphocytes 48 % (21-51); MDiff Complete? YES; Mean Platelet Volume 6.8 fL (7.4-10.4); Neutrophil 34 % (42-75); Nucleated RBC 2 % (0); Platelet Count 89 thou/uL (130-400)
== END 2019-09-27 15:15 | disposition home or self-care (01) ==
LOC: ONC/OP 08:33
PROVIDERS: ATTEND Internal Medicine Hematology & Oncology
PROC: 30233N1 Transfusion of Nonautologous Red Blood Cells into Peripheral Vein, Percutaneous Approach (ICD-10-PCS; principal; 2019-09-27)
PROC: 30233R1 Transfusion of Nonautologous Platelets into Peripheral Vein, Percutaneous Approach (ICD-10-PCS; principal; 2019-09-27)
DX: D64.9 Anemia, unspecified (principal); D69.6 Thrombocytopenia, unspecified; Z91.018 Allergy to other foods
CPT/HCPCS: 36430; 85025; 86850; 86900; 86901; J1642; P9016; P9035; Q0163

== ENCOUNTER 2019-09-30 09:20 | Day surgery (SDC) | payer OTHER ==
[2019-09-30] MEDS ORDERED: Sodium Chloride 0.9% 20 ML ONE (10:05)
[2019-09-30] MEDS ORDERED: Acetaminophen 500 MG TAB PO PRN (10:12)
[2019-09-30] MEDS ORDERED: diphenhydrAMINE 25 MG CAP PO PRN (10:13)
[2019-09-30 13:58] LABS: Hemoglobin 6.5 g/dL (12.0-16.0)
[2019-09-30 15:02] VITALS: BP 119/58; TEMP 98.5
== END 2019-09-30 15:02 | disposition home or self-care (01) ==
LOC: ONC/OP 09:20
PROVIDERS: ATTEND Internal Medicine Hematology & Oncology
PROC: 30233N1 Transfusion of Nonautologous Red Blood Cells into Peripheral Vein, Percutaneous Approach (ICD-10-PCS; principal; 2019-09-30)
DX: D64.9 Anemia, unspecified (principal); D69.6 Thrombocytopenia, unspecified; Z91.018 Allergy to other foods
CPT/HCPCS: 36430; 85014; 85018; 86850; 86900; 86901; J1642; P9016; Q0163

== ENCOUNTER 2019-10-01 11:03 | Day surgery (SDC) | payer OTHER ==
[2019-10-01] MEDS ORDERED: Acetaminophen 500 MG TAB PO PRN (11:21)
[2019-10-01] MEDS ORDERED: diphenhydrAMINE 25 MG CAP PO PRN (11:22)
[2019-10-01] MEDS ORDERED: Sodium Chloride 0.9% 30 ML ONE (11:49)
[2019-10-01 13:34] VITALS: BP 113/59; TEMP 98.4
[2019-10-01 14:06] LABS: Hemoglobin 5.8 g/dL (12.0-16.0); Mean Corpuscular HGB CONC 35.3 g/dL (32.0-36.0); Mean Corpuscular Hemoglobin 31.6 pg (27.0-31.0); Mean Corpuscular Volume 89.7 fL (78.0-98.0); Mean Platelet Volume 7.4 fL (7.4-10.4); Platelet Count 121 thou/uL (130-400); RBC Distribution Width 14.3 % (11.5-14.5); Red Blood Cell (RBC) Count 1.84 mill/uL (4.20-5.40)
[2019-10-01 14:24] LABS: Band 8 % (5-11); Lymphocytes 32 % (21-51); MDiff Complete? YES; Metamyelocyte 2 % (0-0); Monocytes 4 % (0-10); Neutrophil 54 % (42-75); Nucleated RBC 3 % (0); Ovalocytes SLIGHT = 2-5 cells (100X) (0-1/hpf); Platelet Morphology Comment Appears Decreased; Polychromasia MODERATE = 3-4 cells (100X) (0-2/hpf)
== END 2019-10-01 15:07 | disposition home or self-care (01) ==
LOC: ONC/OP 11:03
PROVIDERS: ATTEND Internal Medicine Hematology & Oncology
PROC: 30233R1 Transfusion of Nonautologous Platelets into Peripheral Vein, Percutaneous Approach (ICD-10-PCS; principal; 2019-10-01)
DX: D69.6 Thrombocytopenia, unspecified (principal); D64.9 Anemia, unspecified; Z91.018 Allergy to other foods
CPT/HCPCS: 36430; 85025; 86850; 86900; 86901; J1642; P9035; Q0163

== ENCOUNTER 2019-10-05 08:34 | Day surgery (SDC) | payer OTHER ==
[2019-10-05] MEDS ORDERED: Sodium Chloride 0.9% 20 ML ONE (08:48)
[2019-10-05] MEDS ORDERED: diphenhydrAMINE 25 MG CAP PO SCH (09:00)
[2019-10-05] MEDS ORDERED: Acetaminophen 500 MG TAB PO SCH (09:00)
[2019-10-05 14:54] LABS: Hemoglobin 7.9 g/dL (12.0-16.0); Mean Corpuscular HGB CONC 35.6 g/dL (32.0-36.0); Mean Corpuscular Hemoglobin 32.3 pg (27.0-31.0); Mean Corpuscular Volume 90.8 fL (78.0-98.0); Mean Platelet Volume 8.1 fL (7.4-10.4); Platelet Count 64 thou/uL (130-400); RBC Distribution Width 13.8 % (11.5-14.5); Red Blood Cell (RBC) Count 2.46 mill/uL (4.20-5.40); White Blood Cell (WBC) Count 1.6 thou/uL (4.8-10.8)
[2019-10-05 15:30] LABS: Band 2 % (5-11); Lymphocytes 64 % (21-51); MDiff Complete? YES; Monocytes 2 % (0-10); Neutrophil 32 % (42-75); Nucleated RBC 2 % (0); Platelet Morphology Comment Appears Decreased; Polychromasia SLIGHT = 2-3 cells (100X) (0-2/hpf)
[2019-10-05 18:09] VITALS: TEMP 98.2
[2019-10-05 18:25] VITALS: BP 103/50
== END 2019-10-05 18:31 | disposition home or self-care (01) ==
LOC: ONC/OP 08:34
PROVIDERS: ATTEND Internal Medicine Hematology & Oncology
PROC: 30233N1 Transfusion of Nonautologous Red Blood Cells into Peripheral Vein, Percutaneous Approach (ICD-10-PCS; principal; 2019-10-05)
PROC: 30233R1 Transfusion of Nonautologous Platelets into Peripheral Vein, Percutaneous Approach (ICD-10-PCS; principal; 2019-10-05)
DX: D64.9 Anemia, unspecified (principal); D69.6 Thrombocytopenia, unspecified; Z91.018 Allergy to other foods
CPT/HCPCS: 36430; 85025; 86850; 86900; 86901; J1642; P9016; P9035; Q0163

== ENCOUNTER 2019-10-07 08:46 | Day surgery (SDC) | payer OTHER ==
[2019-10-07] MEDS ORDERED: Sodium Chloride 0.9% 30 ML ONE (09:12)
[2019-10-07] MEDS ORDERED: diphenhydrAMINE 25 MG CAP PO SCH (09:15)
[2019-10-07] MEDS ORDERED: Acetaminophen 500 MG TAB PO SCH (09:15)
[2019-10-07 11:00] VITALS: TEMP 97.8
[2019-10-07 11:18] VITALS: BP 100/53
[2019-10-07 11:35] LABS: Hemoglobin 5.3 g/dL (12.0-16.0); Mean Corpuscular HGB CONC 35.7 g/dL (32.0-36.0); Mean Corpuscular Hemoglobin 32.7 pg (27.0-31.0); Mean Corpuscular Volume 91.8 fL (78.0-98.0); Mean Platelet Volume 7.7 fL (7.4-10.4); Platelet Count 141 thou/uL (130-400); RBC Distribution Width 14.1 % (11.5-14.5); Red Blood Cell (RBC) Count 1.63 mill/uL (4.20-5.40); White Blood Cell (WBC) Count 3.5 thou/uL (4.8-10.8)
[2019-10-07 12:27] LABS: Band 21 % (5-11); Eosinophils 1 % (0-10); Lymphocytes 28 % (21-51); MDiff Complete? YES; Metamyelocyte 1 % (0-0); Monocytes 3 % (0-10); Neutrophil 44 % (42-75); Nucleated RBC 1 % (0); Platelet Morphology Comment Appears Adequate; Polychromasia MODERATE = 3-4 cells (100X) (0-2/hpf); Reactive Lymphocytes 1 % (0-10)
== END 2019-10-07 11:19 | disposition home or self-care (01) ==
LOC: ONC/OP 08:46
PROVIDERS: ATTEND Internal Medicine Hematology & Oncology
PROC: 30233R1 Transfusion of Nonautologous Platelets into Peripheral Vein, Percutaneous Approach (ICD-10-PCS; principal; 2019-10-07)
DX: D69.6 Thrombocytopenia, unspecified (principal); D64.9 Anemia, unspecified; Z91.018 Allergy to other foods
CPT/HCPCS: 36430; 80053; 82248; 83615; 84100; 84550; 85025; 86300; 86850; 86900; 86901; J1642; P9035; Q0163

== ENCOUNTER 2019-10-08 08:36 | Day surgery (SDC) | payer OTHER ==
[2019-10-08] MEDS ORDERED: Sodium Chloride 0.9% 30 ML ONE (08:51)
[2019-10-08] MEDS ORDERED: Acetaminophen 500 MG TAB PO SCH (10:00)
[2019-10-08] MEDS ORDERED: diphenhydrAMINE 25 MG CAP PO SCH (10:00)
[2019-10-08 14:30] VITALS: BP 97/60; TEMP 98.6
[2019-10-08 14:40] LABS: Platelet Count 17 thou/uL (130-400)
[2019-10-08 14:54] LABS: Band 12 % (5-11); Hemoglobin 8.1 g/dL (12.0-16.0); Lymphocytes 45 % (21-51); MDiff Complete? YES; Mean Corpuscular HGB CONC 34.2 g/dL (32.0-36.0); Mean Corpuscular Hemoglobin 31.3 pg (27.0-31.0); Mean Corpuscular Volume 91.4 fL (78.0-98.0); Mean Platelet Volume 9.5 fL (7.4-10.4); Monocytes 2 % (0-10); Neutrophil 41 % (42-75); Nucleated RBC 1 % (0); Platelet Morphology Comment Appears Decreased; Polychromasia MODERATE = 3-4 cells (100X) (0-2/hpf); RBC Distribution Width 13.7 % (11.5-14.5); Red Blood Cell (RBC) Count 2.57 mill/uL (4.20-5.40); Toxic Granulation SLIGHT; White Blood Cell (WBC) Count 3.7 thou/uL (4.8-10.8)
== END 2019-10-08 14:30 | disposition home or self-care (01) ==
LOC: ONC/OP 08:36
PROVIDERS: ATTEND Internal Medicine Hematology & Oncology
PROC: 30233N1 Transfusion of Nonautologous Red Blood Cells into Peripheral Vein, Percutaneous Approach (ICD-10-PCS; principal; 2019-10-08)
DX: D64.9 Anemia, unspecified (principal); D69.6 Thrombocytopenia, unspecified; Z91.018 Allergy to other foods
CPT/HCPCS: 36430; 85007; 85027; 86850; 86900; 86901; J1642; P9016

== ENCOUNTER 2019-10-12 08:54 | Day surgery (SDC) | payer OTHER ==
[2019-10-12] MEDS ORDERED: Acetaminophen 500 MG TAB PO SCH (09:15)
[2019-10-12] MEDS ORDERED: diphenhydrAMINE 25 MG CAP PO SCH (09:15)
[2019-10-12] MEDS ORDERED: Sodium Chloride 0.9% 20 ML ONE (15:05)
[2019-10-12 15:29] VITALS: BP 119/58; TEMP 98.4
[2019-10-12 15:33] LABS: Anisocytosis SLIGHT = 6-15 cells (100X) (0-5/hpf); Band 45 % (5-11); Hemoglobin 7.1 g/dL (12.0-16.0); Lymphocytes 9 % (21-51); MDiff Complete? YES; Mean Corpuscular HGB CONC 34.7 g/dL (32.0-36.0); Mean Corpuscular Hemoglobin 31.7 pg (27.0-31.0); Mean Corpuscular Volume 91.3 fL (78.0-98.0); Mean Platelet Volume 7.7 fL (7.4-10.4); Metamyelocyte 2 % (0-0); Monocytes 8 % (0-10); Neutrophil 36 % (42-75); Nucleated RBC 2 % (0); Platelet Count 57 thou/uL (130-400); Platelet Morphology Comment Appears Decreased; Polychromasia MODERATE = 3-4 cells (100X) (0-2/hpf); RBC Distribution Width 13.1 % (11.5-14.5); Red Blood Cell (RBC) Count 2.24 mill/uL (4.20-5.40); Toxic Granulation MODERATE; White Blood Cell (WBC) Count 9.1 thou/uL (4.8-10.8)
== END 2019-10-12 15:29 | disposition home or self-care (01) ==
LOC: ONC/OP 08:54
PROVIDERS: ATTEND Internal Medicine Hematology & Oncology
PROC: 30233N1 Transfusion of Nonautologous Red Blood Cells into Peripheral Vein, Percutaneous Approach (ICD-10-PCS; principal; 2019-10-12)
DX: D69.6 Thrombocytopenia, unspecified (principal); D64.9 Anemia, unspecified; Z91.018 Allergy to other foods
CPT/HCPCS: 36430; 82565; 85025; 86850; 86900; 86901; J1642; P9016; P9035; Q0163

== ENCOUNTER 2019-10-14 09:10 | Day surgery (SDC) | payer OTHER ==
[2019-10-14] MEDS ORDERED: diphenhydrAMINE 25 MG CAP PO SCH (09:30)
[2019-10-14] MEDS ORDERED: Acetaminophen 500 MG TAB PO SCH (09:30)
[2019-10-14 11:30] LABS: Hemoglobin 4.8 g/dL (12.0-16.0); Mean Corpuscular HGB CONC 34.7 g/dL (32.0-36.0); Mean Corpuscular Hemoglobin 31.5 pg (27.0-31.0); Mean Corpuscular Volume 90.9 fL (78.0-98.0); Mean Platelet Volume 6.3 fL (7.4-10.4); Platelet Count 137 thou/uL (130-400); RBC Distribution Width 13.5 % (11.5-14.5); Red Blood Cell (RBC) Count 1.53 mill/uL (4.20-5.40); White Blood Cell (WBC) Count 11.7 thou/uL (4.8-10.8)
[2019-10-14 12:07] LABS: Band 18 % (5-11); Eosinophils 3 % (0-10); Lymphocytes 17 % (21-51); MDiff Complete? YES; Metamyelocyte 1 % (0-0); Monocytes 2 % (0-10); Neutrophil 59 % (42-75); Nucleated RBC 1 % (0); Platelet Morphology Comment Appears Adequate; Polychromasia SLIGHT = 2-3 cells (100X) (0-2/hpf)
[2019-10-14 14:15] VITALS: TEMP 98
[2019-10-14 14:16] VITALS: BP 108/55
== END 2019-10-14 15:01 | disposition home or self-care (01) ==
LOC: ONC/OP 09:10
PROVIDERS: ATTEND Internal Medicine Hematology & Oncology
PROC: 30233N1 Transfusion of Nonautologous Red Blood Cells into Peripheral Vein, Percutaneous Approach (ICD-10-PCS; principal; 2019-10-14)
DX: D69.6 Thrombocytopenia, unspecified (principal); D64.9 Anemia, unspecified; Z91.018 Allergy to other foods
CPT/HCPCS: 36430; 36592; 85007; 85027; 86850; 86900; 86901; 99211; G0463; J1642; P9035; Q0163

== ENCOUNTER 2019-10-22 09:16 | Day surgery (SDC) | payer OTHER ==
[2019-10-22] MEDS ORDERED: diphenhydrAMINE 25 MG CAP PO SCH (10:00)
[2019-10-22] MEDS ORDERED: Acetaminophen 500 MG TAB PO SCH (10:00)
[2019-10-22] MEDS ORDERED: Sodium Chloride 0.9% 40 ML ONE (10:58)
[2019-10-22 17:02] VITALS: BP 153/74; TEMP 98.5
[2019-10-22 17:59] LABS: Anisocytosis SLIGHT = 6-15 cells (100X) (0-5/hpf); Band 24 % (5-11); Hemoglobin 10.7 g/dL (12.0-16.0); Lymphocytes 28 % (21-51); MDiff Complete? YES; Mean Corpuscular Hemoglobin 30.7 pg (27.0-31.0); Mean Corpuscular Volume 90.4 fL (78.0-98.0); Mean Platelet Volume 7.7 fL (7.4-10.4); Metamyelocyte 2 % (0-0); Monocytes 9 % (0-10); Myelocyte 6 % (0-0); Neutrophil 19 % (42-75); Nucleated RBC 3 % (0); Platelet Count 127 thou/uL (130-400); Platelet Morphology Comment Appears Decreased; Polychromasia MODERATE = 3-4 cells (100X) (0-2/hpf); RBC Distribution Width 13.1 % (11.5-14.5); Reactive Lymphocytes 12 % (0-10); Red Blood Cell (RBC) Count 3.48 mill/uL (4.20-5.40); Toxic Granulation SLIGHT
== END 2019-10-22 17:02 | disposition home or self-care (01) ==
LOC: ONC/OP 09:16
PROVIDERS: ATTEND Internal Medicine Hematology & Oncology
PROC: 30233R1 Transfusion of Nonautologous Platelets into Peripheral Vein, Percutaneous Approach (ICD-10-PCS; principal; 2019-10-22)
PROC: 30233N1 Transfusion of Nonautologous Red Blood Cells into Peripheral Vein, Percutaneous Approach (ICD-10-PCS; principal; 2019-10-22)
DX: D69.6 Thrombocytopenia, unspecified (principal); D64.9 Anemia, unspecified; Z91.018 Allergy to other foods
CPT/HCPCS: 36430; 85007; 85027; 86850; 86900; 86901; J1642; P9016; P9035; Q0163

== ENCOUNTER 2019-10-27 08:42 | Day surgery (SDC) | payer OTHER ==
[2019-10-27] MEDS ORDERED: Sodium Chloride 0.9% 20 ML ONE (08:47)
[2019-10-27] MEDS ORDERED: Acetaminophen 500 MG TAB PO SCH (09:00)
[2019-10-27] MEDS ORDERED: diphenhydrAMINE 25 MG CAP PO SCH (09:15)
[2019-10-27 10:21] VITALS: BP 121/56; TEMP 98.5
[2019-10-27 12:40] LABS: Band 11 % (5-11); Hemoglobin 9.5 g/dL (12.0-16.0); Lymphocytes 25 % (21-51); MDiff Complete? YES; Mean Corpuscular HGB CONC 34.2 g/dL (32.0-36.0); Mean Corpuscular Hemoglobin 31.5 pg (27.0-31.0); Mean Corpuscular Volume 92.1 fL (78.0-98.0); Mean Platelet Volume 7.1 fL (7.4-10.4); Metamyelocyte 5 % (0-0); Monocytes 6 % (0-10); Neutrophil 51 % (42-75); Platelet Count 119 thou/uL (130-400); Platelet Morphology Comment Appears Decreased; Polychromasia SLIGHT = 2-3 cells (100X) (0-2/hpf); RBC Distribution Width 13.9 % (11.5-14.5); Reactive Lymphocytes 1 % (0-10); Red Blood Cell (RBC) Count 3.02 mill/uL (4.20-5.40); White Blood Cell (WBC) Count 3.4 thou/uL (4.8-10.8)
== END 2019-10-27 10:32 | disposition home or self-care (01) ==
LOC: ONC/OP 08:42
PROVIDERS: ATTEND Internal Medicine Hematology & Oncology
PROC: 30233R1 Transfusion of Nonautologous Platelets into Peripheral Vein, Percutaneous Approach (ICD-10-PCS; principal; 2019-10-27)
DX: D69.6 Thrombocytopenia, unspecified (principal); D64.9 Anemia, unspecified; Z91.018 Allergy to other foods
CPT/HCPCS: 36430; 85007; 85027; 86850; 86900; 86901; J1642; P9035; Q0163

== ENCOUNTER → 2019-11-09 | Day surgery (SDC) | payer OTHER ==
[2019-11-09 15:17] VITALS: BP 105/52; TEMP 98.3
[2019-11-09 15:58] LABS: Hemoglobin 9.1 g/dL (12.0-16.0); Mean Corpuscular HGB CONC 35.2 g/dL (32.0-36.0); Mean Corpuscular Hemoglobin 32.2 pg (27.0-31.0); Mean Corpuscular Volume 91.4 fL (78.0-98.0); Platelet Count 16 thou/uL (130-400); RBC Distribution Width 14.2 % (11.5-14.5); Red Blood Cell (RBC) Count 2.82 mill/uL (4.20-5.40)
[2019-11-09 16:06] LABS: Anisocytosis SLIGHT = 6-15 cells (100X) (0-5/hpf); Band 28 % (5-11); Hypochromia SLIGHT = 6-15 cells (100X) (0-5/hpf); Lymphocytes 28 % (21-51); MDiff Complete? YES; Metamyelocyte 4 % (0-0); Monocytes 4 % (0-10); Neutrophil 24 % (42-75); Nucleated RBC 2 % (0); Platelet Morphology Comment Appears Decreased; Polychromasia MODERATE = 3-4 cells (100X) (0-2/hpf); Reactive Lymphocytes 12 % (0-10); Tear Drops SLIGHT = 2-5 cells (100X) (0-1/hpf); White Blood Cell (WBC) Count 3.5 thou/uL (4.8-10.8)
== END ==
LOC: ONC/OP 11:03
PROVIDERS: ATTEND Internal Medicine Hematology & Oncology
PROC: 30233N1 Transfusion of Nonautologous Red Blood Cells into Peripheral Vein, Percutaneous Approach (ICD-10-PCS; principal; 2019-11-09)
DX: D64.9 Anemia, unspecified (principal); D69.6 Thrombocytopenia, unspecified; Z91.018 Allergy to other foods
CPT/HCPCS: 36430; 85025; 86850; 86900; 86901; J1642; P9016; Q0163

== ENCOUNTER 2019-11-26 09:24 | Day surgery (SDC) | payer OTHER ==
[2019-11-26] MEDS ORDERED: Sodium Chloride 0.9% 30 ML ONE (09:42)
[2019-11-26] MEDS ORDERED: diphenhydrAMINE 25 MG CAP PO SCH (10:00)
[2019-11-26] MEDS ORDERED: Acetaminophen 500 MG TAB PO SCH (10:00)
[2019-11-26 15:05] VITALS: BP 110/62; TEMP 97.8
[2019-11-26 15:26] LABS: Platelet Count 14 thou/uL (130-400)
[2019-11-26 15:54] LABS: Anisocytosis SLIGHT = 6-15 cells (100X) (0-5/hpf); Band 21 % (5-11); Hemoglobin 9.8 g/dL (12.0-16.0); Lymphocytes 17 % (21-51); MDiff Complete? YES; Mean Corpuscular HGB CONC 35.2 g/dL (32.0-36.0); Mean Corpuscular Hemoglobin 32.7 pg (27.0-31.0); Mean Platelet Volume 12.8 fL (7.4-10.4); Metamyelocyte 1 % (0-0); Monocytes 2 % (0-10); Neutrophil 56 % (42-75); Platelet Morphology Comment Appears Decreased; Polychromasia SLIGHT = 2-3 cells (100X) (0-2/hpf); RBC Distribution Width 18.6 % (11.5-14.5); Reactive Lymphocytes 3 % (0-10); Red Blood Cell (RBC) Count 3.01 mill/uL (4.20-5.40); Target Cells SLIGHT = 2-5 cells (100X) (0-1/hpf); White Blood Cell (WBC) Count 5.7 thou/uL (4.8-10.8)
== END 2019-11-26 15:06 | disposition home or self-care (01) ==
LOC: ONC/OP 09:24
PROVIDERS: ATTEND Internal Medicine Hematology & Oncology
PROC: 30233N1 Transfusion of Nonautologous Red Blood Cells into Peripheral Vein, Percutaneous Approach (ICD-10-PCS; principal; 2019-11-26)
DX: D64.9 Anemia, unspecified (principal); D69.6 Thrombocytopenia, unspecified; Z91.018 Allergy to other foods
CPT/HCPCS: 36430; 85025; 86850; 86900; 86901; J1642; P9016; Q0163

== ENCOUNTER 2019-12-10 09:21 | Day surgery (SDC) | payer OTHER ==
[2019-12-10] MEDS ORDERED: Sodium Chloride 0.9% 30 ML ONE (09:45)
[2019-12-10] MEDS ORDERED: Acetaminophen 500 MG TAB PO SCH (09:45)
[2019-12-10] MEDS ORDERED: diphenhydrAMINE 25 MG CAP PO SCH (09:45)
[2019-12-10 15:24] VITALS: BP 117/56; TEMP 98
[2019-12-10 15:50] LABS: Mean Corpuscular Hemoglobin 30.8 pg (27.0-31.0); Mean Corpuscular Volume 93.4 fL (78.0-98.0); Mean Platelet Volume 12.9 fL (7.4-10.4); Platelet Count 14 thou/uL (130-400); RBC Distribution Width 17.1 % (11.5-14.5); Red Blood Cell (RBC) Count 3.24 mill/uL (4.20-5.40)
[2019-12-10 16:10] LABS: Anisocytosis SLIGHT = 6-15 cells (100X) (0-5/hpf); Band 8 % (5-11); Lymphocytes 22 % (21-51); MDiff Complete? YES; Monocytes 4 % (0-10); Neutrophil 62 % (42-75); Nucleated RBC 7 % (0); Platelet Morphology Comment Appears Decreased; Polychromasia SLIGHT = 2-3 cells (100X) (0-2/hpf); Reactive Lymphocytes 4 % (0-10); White Blood Cell (WBC) Count 2.8 thou/uL (4.8-10.8)
== END 2019-12-10 15:24 | disposition home or self-care (01) ==
LOC: ONC/OP 09:21
PROVIDERS: ATTEND Internal Medicine Hematology & Oncology
PROC: 30233N1 Transfusion of Nonautologous Red Blood Cells into Peripheral Vein, Percutaneous Approach (ICD-10-PCS; principal; 2019-12-10)
DX: D64.9 Anemia, unspecified (principal); D69.6 Thrombocytopenia, unspecified; Z91.018 Allergy to other foods
CPT/HCPCS: 36430; 85025; 86850; 86900; 86901; J1642; P9016; Q0163

== ENCOUNTER 2019-12-20 10:24 | Outpatient (CLI) | payer OTHER ==
--- NOTE | 2019-12-21 09:05 | NM ---
WHOLE BODY BONE SCAN: HISTORY: Malignant neoplasm of upper outer quadrant of the left female breast. Secondary malignant neoplasm o f bone. RADIOPHARMACEUTICAL: 31.2 mCi Technetium 99m-MDP injected intravenously. COMPARISON: 06/28/2019. FINDINGS: Multiple foci of abnormal tracer localization are again seen in the skeleton including the ribs, spin e, pelvis, and proximal femurs. There are a few new foci of increased uptake in the ribs and spine s chanell the last exam. Tracer excretion through the kidneys is within normal limits. Degenerative roth ges in the peripheral joints are again seen. IMPRESSION: Osseous metastatic disease with mild interval worsening since 06/28/2019. POS: VINCENT
== END 2019-12-20 10:25 | disposition home or self-care (01) ==
LOC: NM 10:24
PROVIDERS: ATTEND Internal Medicine Hematology & Oncology
DX: C79.51 Secondary malignant neoplasm of bone (principal); C50.412 Malignant neoplasm of upper-outer quadrant of left female breast
CPT/HCPCS: 78306; A9503; J1642

== ENCOUNTER 2019-12-21 12:45 | Outpatient (CLI) | payer OTHER ==
--- NOTE | 2019-12-21 13:33 | CT ---
CT angiogram chest with IV contrast and 3-D imaging HISTORY: Dyspnea. Breast cancer with bone metastases. COMPARISON: 07/20/2019. FINDINGS: There is good contrast opacification pulmonary arteries and the thoracic aorta with bovine origin of the great vessels at the aortic arch. Very large amount of fluid within the dependent portion of each pleural cavity. Compressive atelectasis of the adjacent lung tissue. No focal mass ev ident. No mediastinal adenopathy visible. Minimal pericardial fluid. No pneumothorax. Extensive widespread osseous metastatic disease and old bilateral posterior rib fractures again demon strated. Small focus of calcification associated with the rotator cuff of the left shoulder. IMPRESSION : No CT evidence of pulmonary embolus. Very large bilateral pleural effusions. Findings were called to Dr. Calvillo at 1324 hours Code CR.
[2019-12-21] MEDS ORDERED: Iopamidol 370 76% 100 ML VIAL ONE (14:04)
== END 2019-12-21 12:46 | disposition home or self-care (01) ==
LOC: CT 12:45
PROVIDERS: ATTEND Internal Medicine Hematology & Oncology
DX: C50.412 Malignant neoplasm of upper-outer quadrant of left female breast (principal); C79.51 Secondary malignant neoplasm of bone; R06.02 Shortness of breath; I26.99 Other pulmonary embolism without acute cor pulmonale; J90 Pleural effusion, not elsewhere classified
CPT/HCPCS: 71275; 80053; 82248; 83615; 84100; 84550; Q9967

== ENCOUNTER 2020-01-20 15:46 | Outpatient (CLI) | payer OTHER ==
--- NOTE | 2020-01-20 16:13 | RAD ---
CHEST TWO VIEW: 01/20/20 HISTORY: Malignant neoplasm and neutropenia. COMPARISON: Radiograph 01/12/20. FINDINGS: Similar appearance to the large right and moderate to large left layering pleural effusions. Bilatera l pathologic rib fractures are similar. Multiple rib fractures bilaterally in different stages of hea ling. Areas of sclerosis of the ribs and vertebrae. PICC is in place with tip not well seen, likely at the inferior SVC. IMPRESSION: 1. Similar examination of the chest with large layering pleural effusions as well as pathologic rib fractures and diffuse osseous metastatic disease. 2. Similar appearance of the mid thoracic spine wedge fracture with 30 to 40% anterior height lo ss. POS: H
== END 2020-01-20 15:47 | disposition home or self-care (01) ==
LOC: BICRAD 15:46
PROVIDERS: ATTEND Internal Medicine Hematology & Oncology
DX: J91.0 Malignant pleural effusion (principal); R06.02 Shortness of breath; C50.412 Malignant neoplasm of upper-outer quadrant of left female breast; C79.51 Secondary malignant neoplasm of bone; D70.8 Other neutropenia; M84.48XA Pathological fracture, other site, initial encounter for fracture
CPT/HCPCS: 71046

== ENCOUNTER → 2020-01-28 | Day surgery (SDC) | payer OTHER ==
[~2020-01-28] MED LIST changes: -Sodium Chloride 0.9% 20 ML ONE; +Sodium Chloride 0.9% 30 ML ONE
[2020-01-28 11:39] VITALS: TEMP 98
[2020-01-28 13:45] VITALS: BP 105/61
[2020-01-28 14:35] LABS: Anisocytosis MODERATE=16-30 cells (100X) (0-5/hpf); Band 25 % (5-11); Hemoglobin 9.8 g/dL (12.0-16.0); Hypochromia SLIGHT = 6-15 cells (100X) (0-5/hpf); Lymphocytes 36 % (21-51); MDiff Complete? YES; Macrocytosis SLIGHT = 6-15 cells (100X) (0-5/hpf); Mean Corpuscular HGB CONC 33.6 g/dL (32.0-36.0); Mean Corpuscular Hemoglobin 35.6 pg (27.0-31.0); Monocytes 7 % (0-10); Neutrophil 32 % (42-75); Nucleated RBC 6 % (0); Platelet Count 26 thou/uL (130-400); Platelet Morphology Comment Appears Decreased; Polychromasia MODERATE = 3-4 cells (100X) (0-2/hpf); RBC Distribution Width 21.5 % (11.5-14.5); Red Blood Cell (RBC) Count 2.76 mill/uL (4.20-5.40); Target Cells SLIGHT = 2-5 cells (100X) (0-1/hpf); Tear Drops SLIGHT = 2-5 cells (100X) (0-1/hpf); White Blood Cell (WBC) Count 1.7 thou/uL (4.8-10.8)
== END ==
LOC: ONC/OP 09:57
PROVIDERS: ATTEND Internal Medicine Hematology & Oncology
PROC: 30233N1 Transfusion of Nonautologous Red Blood Cells into Peripheral Vein, Percutaneous Approach (ICD-10-PCS; principal; 2020-01-28)
DX: D64.9 Anemia, unspecified (principal); D69.6 Thrombocytopenia, unspecified
CPT/HCPCS: 36430; 85025; 86850; 86900; 86901; J1642; P9016; Q0163

== ENCOUNTER 2020-02-03 17:19 | Inpatient (IN) | payer OTHER ==
[2020-02-03 18:57] VITALS: BMI 18.6
[2020-02-03] MEDS ORDERED: Ondansetron PF 4 MG/2 ML Vial IVP PRN (19:25)
[2020-02-03] MEDS: Aluminum & Magnesium Hydroxide 60 ML, Lidocaine 2% Viscous Solution 30 ML, diphenhydrAM... SSW PRN (19:39)
[2020-02-03 19:58] LABS: Hemoglobin 9.2 g/dL (12.0-16.0); Mean Corpuscular HGB CONC 34.4 g/dL (32.0-36.0); Mean Corpuscular Hemoglobin 36.7 pg (27.0-31.0); Mean Platelet Volume 10.4 fL (7.4-10.4); Platelet Count 31 thou/uL (130-400); RBC Distribution Width 20.2 % (11.5-14.5); Red Blood Cell (RBC) Count 2.49 mill/uL (4.20-5.40); White Blood Cell (WBC) Count 1.5 thou/uL (4.8-10.8)
[2020-02-03 20:15] LABS: ALT (SGPT) 21 U/L (8-55); AST (SGOT) 26 U/L (5-34); Albumin 2.5 g/dL (3.4-4.8); Alkaline Phosphatase 55 U/L (40-110); Anion Gap 9 mmol/L (10-20); BUN (Urea Nitrogen) 14 mg/dL (9.8-20.1); Bilirubin, Total 0.7 mg/dL (0.2-1.2); Calc. Creatinine Clearance 71 mL/min (70-130); Calcium 7.2 mg/dL (7.8-10.44); Carbon Dioxide 24 mmol/L (23-31); Chloride 106 mmol/L (98-107); Estimated GFR-MDRD Greater than 90; Glucose 96 mg/dL (80-115); Potassium 3.6 mmol/L (3.5-5.1); Protein, Total 4.5 g/dL (6.0-8.3); Sodium 135 mmol/L (136-145)
[2020-02-03 20:16] LABS: Band 10 % (5-11); Hypochromia SLIGHT = 6-15 cells (100X) (0-5/hpf); Lymphocytes 32 % (21-51); MDiff Complete? YES; Macrocytosis SLIGHT = 6-15 cells (100X) (0-5/hpf); Monocytes 8 % (0-10); Neutrophil 50 % (42-75); Platelet Morphology Comment Appears Decreased
--- NOTE | 2020-02-03 20:57 | RAD ---
EXAM: Chest PA and lateral: HISTORY: Shortness of breath. COMPARISON: 01/20/2020 FINDINGS: Stable right-sided PICC line. Heart: Stable cardiac silhouette Aorta: Stable atherosclerosis Pulmonary vessels: Normal Costophrenic angles: Bilateral pleural effusions. The degree of pleural fluid in the right hemithorax has slightly increased. Lungs: Right basilar consolidation may represent passive atelectasis. Pneumonia and/or aspiration can not be excluded. Pneumothorax: No pneumothorax Osseous structures: No osseous abnormalities IMPRESSION: Slightly worsening right-sided pleural effusion. Bibasilar parenchymal changes due to atelectasis, pn eumonia or aspiration.
[2020-02-03] MEDS ORDERED: Famotidine/PF 20 mg/2ml Vial SLOW IVP SCH (21:00)
[2020-02-04] MEDS: Aluminum & Magnesium Hydroxide 60 ML, Lidocaine 2% Viscous Solution 30 ML, diphenhydrAM... SSW PRN ×2 (00:13→17:05)
--- NOTE | 2020-02-04 01:25 | HP ---
CHIEF COMPLAINT: Weakness and shortness of breath. HISTORY OF PRESENT ILLNESS: Ms. Gimenez is a 64-year-old female with past medical history of metastatic breast cancer on chemotherapy, is being admitted after she presented to her oncologist with shortness of breath and weakness. At the doctor's office, lab work was done including CBC. The patient had white cell count of 1.8, hemoglobin 9.8, platelets 39. Because of weakness and shortness of breath, the patient is being admitted to the hospital for further management. The patient was recently hospitalized and was found to have pleural effusion, which was drained by Pulmonary. The patient denies fevers, chills, cough. She gets short of breath with any minimal exertion. She does have a history of metastatic breast cancer to the bone. PAST MEDICAL HISTORY: Metastatic breast cancer. PAST SURGICAL HISTORY: Reviewed and not pertinent. FAMILY HISTORY: Reviewed and noncontributory. SOCIAL HISTORY: Denies smoking, alcohol drinking, or drug abuse. ALLERGIES: ALLERGIC TO REVIEW OF SYSTEMS: Review of 14 systems negative except what is mentioned in history of present illness. PHYSICAL EXAMINATION: GENERAL: The patient is awake, in moderate distress. VITAL SIGNS: Blood pressure 102/60, temperature 98.6, pulse is 97, respiratory rate is 20, and oxygen saturation is 98% on room air. HEAD AND NECK: Normocephalic, atraumatic. NECK: Supple. CHEST: Decreased air entry in both bases. HEART: S1, S2. Regular. ABDOMEN: Soft, nontender. Bowel sounds present. NEUROLOGIC: Awake, alert, and oriented x3. No focal deficits. PSYCH: Unable to assess. EXTREMITIES: No clubbing or cyanosis. LABORATORY DATA: Labs still pending but the labs from doctor's office, the patient had WBC count of 1.8, hemoglobin 9.8, platelets 39. Chest x-ray is pending. ASSESSMENT: 1. Acute dyspnea. 2. Weakness, generalized. 3. Metastatic breast cancer, chemotherapy. 4. Pancytopenia. PLAN: 1. Admit. 2. Chest x-ray. 3. We will get labs, to follow the results. 4. Consult Pulmonary for evaluation and further recommendations. 5. Consult Oncology for evaluation and further recommendations. 6. Reconcile home medications. 7. Deep venous thrombosis prophylaxis as appropriate. 8. Expected length of stay, 2 midnights or more. Job ID: [id number]
[2020-02-04 05:46] LABS: Bilirubin Negative (Negative); Blood, Urine Negative (Negative); Clarity Clear (Clear); Glucose, Urine (Dipstick) Normal (Negative); Ketone, Urine 100 mg/dL (Negative); Leukocyte 75 Leu/uL (Negative); Nitrite Negative (Negative); Protein, Urine (Dipstick) 50 mg/dL (Neg-Trace); RBC/HPF 0-3 HPF (0-3); Specific Gravity, Urine 1.036 (1.002-1.036); Squamous Epithelial 0-3 HPF (0-3); WBC/HPF 21-50 HPF (0-3)
[2020-02-04 05:48] LABS: Bacteria/HPF Rare-Few HPF (None Seen)
[2020-02-04] MEDS ORDERED: Senokot S 8.6-50 MG TAB PO PRN (08:11)
[2020-02-04] MEDS ORDERED: Sodium Chloride 0.65% Nasal 44 ML BOT EA NARE PRN (08:19)
[2020-02-04] MEDS: Sodium Chloride 0.65% Nasal 44 ML BOT EA NARE SCH ×3 (09:55→20:30)
[2020-02-04] MEDS: Famotidine 20 MG TAB PO SCH ×2 (10:03→20:30)
[2020-02-04 10:07] LABS: Mean Corpuscular Hemoglobin 35.5 pg (27.0-31.0); Mean Platelet Volume 10.4 fL (7.4-10.4); Platelet Count 33 thou/uL (130-400); RBC Distribution Width 20.6 % (11.5-14.5); Red Blood Cell (RBC) Count 2.53 mill/uL (4.20-5.40); White Blood Cell (WBC) Count 1.8 thou/uL (4.8-10.8)
[2020-02-04 12:33] LABS: Band 9 % (5-11); Lymphocytes 58 % (21-51); MDiff Complete? YES; Monocytes 5 % (0-10); Neutrophil 29 % (42-75); Nucleated RBC 1 % (0); Ovalocytes SLIGHT = 2-5 cells (100X) (0-1/hpf); Platelet Morphology Comment Appears Decreased; Polychromasia SLIGHT = 2-3 cells (100X) (0-2/hpf); Schistocytes SLIGHT = 2-5 cells (100X) (0-1/hpf)
--- NOTE | 2020-02-04 15:51 | CON ---
DATE OF CONSULTATION: 02/04/2020 HISTORY OF PRESENT ILLNESS: Ms. Gimenez is a very pleasant 64-year-old woman, who has history of end-stage metastatic lobular cell breast cancer. She has had multiple presentations with shortness of breath. Dr. Huffman did a right thoracentesis on 01/11 with 1 L of clear fluid evacuated - this did not show malignant cells. She has recurrent pleural effusion and shortness of breath with minimal activity at home. She says she did get better after the evacuation of fluid by Dr. Huffman. She is here for evaluation for PleurX catheter placement. PAST MEDICAL HISTORY: Metastatic breast cancer. PAST SURGICAL HISTORY: None. CURRENT MEDICATIONS: Noted. ALLERGIES: BRAZIL NUTS. REVIEW OF SYSTEMS: Ten-point review of systems is otherwise negative. PHYSICAL EXAMINATION: GENERAL: This is a diminutive obviously chronically-ill woman, sitting upright in bed. VITAL SIGNS: Her height is 5 feet, weight is 95 pounds, BSA is 1.35. Temperature is 98.5, pulse is 100 and regular, and blood pressure is 105/67. LUNGS: Diminished breath sounds in both right bases. CARDIAC: Heart rhythm is regular. ABDOMEN: Soft. ASSESSMENT AND PLAN: Recurrent transudative right pleural effusion. I have discussed PleurX catheter placement for the patient's ability to drain her effusion and remained comfortable at home and she is agreeable. I will make plans for tomorrow. Job ID: [id number]
--- NOTE | 2020-02-04 19:05 | PDOC.HOSPP ---
- Subjective Encounter Date: 02/04/20 Encounter Time: 10:30 Subjective: Patient seen and examined for shortness of breath. Feels generally weak and fatigued. Gets short of breath on minimal exertion. Denies any chest pain, palpitations or syncope. Had mild epistaxis last night that has resolved. Denies significant cough. - Objective Vital Signs & Weight: Vital Signs (12 hours) Temp Pulse Resp BP Pulse Ox 02/04/20 16:00 99.4 F 110 H 18 106/69 96 02/04/20 12:00 98.5 F 105 H 18 105/67 95 02/04/20 08:00 98.8 F 107 H 18 98/63 95 Weight Admit Weight 95 lb 8 oz Weight 95 lb 8 oz I&O: 02/03/20 02/04/20 02/05/20 06:59 06:59 06:59 Intake Total 180 Balance 180 Result Diagrams: 02/04/20 09:38 02/03/20 19:29 Radiology Reviewed by me: Yes (Chest x-raypleural effusion) Hospitalist ROS - Review of Systems Respiratory: reports: shortness of breath, SOB with excertion. denies: cough, dry, hemoptysis, pleuritic pain, sputum, wheezing, other Cardiovascular: denies: chest pain, palpitations, orthopnea, paroxysmal noc. dyspnea, edema, light headedness, other Gastrointestinal: denies: nausea, vomiting, abdominal pain, diarrhea, constipation, melena, hematochezia, other - Medication Medications: Active Medications Generic Name Dose Route Start Last Admin Trade Name Freq PRN Reason Stop Dose Admin Al Hydroxide/Mg Hydroxide 60 0 ml 02/03/20 18:38 02/04/20 17:05 ml/ Lidocaine HCl 30 ml/ SSW 10 ml Diphenhydramine HCl 75 mg PRN PRN Administration Mouth pain Famotidine 20 mg 02/04/20 09:00 02/04/20 10:03 Pepcid PO 20 mg BID JENNIFER Administration Sodium Chloride 0 ml 02/04/20 09:00 02/04/20 15:35 [place] Nasal [place] 0.65% EA NARE 1 spr TID JENNIFER Administration - Exam General Appearance: ill appearing Neck: supple, symmetric, no JVD Heart: RRR, no gallops, no rubs, normal peripheral pulses Respiratory: no wheezes, no rales, normal chest expansion, rhonchi Respiratory - other findings: Diminished air entry at bases Gastrointestinal: soft, non-tender, non-distended, normal bowel sounds Extremities: no cyanosis, no clubbing Neurological: no new deficit Psychiatric: normal affect, A&O x 3 Hosp A/P - Plan DVT proph w/SCDs Shortness of breath due to recurrent pleural effusion Recent thoracentesis consistent with transudative effusion Generalized weakness Metastatic breast cancer on chemotherapy Chronic pancytopenia probably due to chemotherapy CKD stage II Moderate protein calorie malnutrition Hyponatremia Dehydration on admission Epistaxismildresolved Plan: Patient had a recent thoracentesis consistent with transudate. Chest x-ray reviewed. Pulmonary and oncology input appreciated. Cardiovascular team consult and for Pleurx catheter. Recheck labs in a.m. Hold Lasix for now. Check cortisol level in a.m. At nasal saline sprays. COVID testing pending at this time. Add Ensure.
--- NOTE | 2020-02-04 19:27 | CON ---
DATE OF CONSULTATION: 02/04/2020 HISTORY OF PRESENT ILLNESS: Ms. Gimenez is a pleasant 64-year-old female. She has undergone thoracentesis in the past. This was transudative. Cytology negative fluid. I am told by her oncologist that this most likely is related to her chemotherapy. She now has recurrent effusion and recurrent shortness of breath. She is feeling better about 3 weeks since she was tapped. She has had a long complicated course of metastatic breast cancer. PAST MEDICAL HISTORY: Otherwise noncontributory. FAMILY HISTORY: Noncontributory. SOCIAL HISTORY: She is , has a very supportive . ALLERGIES: SHE HAS NO DRUG ALLERGIES. REVIEW OF SYSTEMS: Ten-point review of systems is negative. PHYSICAL EXAMINATION: VITAL SIGNS: She is afebrile, heart rate is 105, respiratory rate is 18, oximetry is 95 on room air, and blood pressure 105/67. HEAD AND NECK: Unremarkable. LUNGS: Remarkable for decreased breath sounds at the right base. HEART: Regular rhythm. S1 and S2 are normal. ABDOMEN: Soft and nontender. EXTREMITIES: Without clubbing, cyanosis, or edema. LABORATORY DATA: White count 1.8, hemoglobin 9, and platelets 33. IMPRESSION: 1. Pancytopenia. 2. Recurrent pleural effusions, likely related to her treatment. A tunneled PleurX catheter would be appropriate. I am told she has had an echocardiogram in the past that was unremarkable. If this has been done this year, then a repeat echo would be in order. This is a 50 min visit with greater than 50% of time spent on unit with coordination of care. Job ID: [id number] [facility]
--- NOTE | 2020-02-04 21:24 | CON ---
DATE OF CONSULTATION: REASON FOR CONSULT: Breast cancer. HISTORY OF PRESENT ILLNESS: Ms. Gimenez is a pleasant 64-year-old female, with stage IV, ER positive, HER2 negative left breast cancer. She has pancytopenia secondary to bone marrow involvement. She has a history of pleural effusion with thoracentesis. She received cycle 1 of reduced dose Taxotere and presented to our clinic yesterday with weakness, worsening shortness of breath. She appeared dehydrated. She has a mucositis. She was admitted for treatment. She has received IV fluids and Magic mouthwash and supportive care with improvement in her symptoms. Dr. Huffman was consulted, who is her financial aid coordinator. The patient was seen at bedside with present. She does state she feels slightly better today, with shortness of breath with exertion. No chest pain. No abdominal discomfort. PAST MEDICAL HISTORY: 1. Stage IV breast cancer. 2. Pleural effusion. PAST SURGICAL HISTORY: 1. Thoracentesis. 2. Bone marrow biopsy. ALLERGIES: NO KNOWN DRUG ALLERGIES. HOME MEDICATIONS: 1. Lasix. 2. Zofran. 3. Stool softener. 4. Megace. 5. Potassium chloride. 6. Protonix. FAMILY HISTORY: Noncontributory. SOCIAL HISTORY: , lives with her spouse. No alcohol, tobacco, or illicit drug use. REVIEW OF SYSTEMS: A 10-point review of systems is negative except for noted in HPI. PHYSICAL EXAMINATION: VITAL SIGNS: Temperature is 98.5, pulse is 105, respiratory rate 18, BP is 105/67, she is 95% on room air. GENERAL: This is a thin female, in no acute distress. HEENT: Normocephalic and atraumatic. Pupils are equal and reactive to light. She has alopecia. NECK: Supple. CV: Regular rate and rhythm. She is tachycardic. LUNGS: Clear, but diminished on the right. ABDOMEN: Soft and nontender. Bowel sounds are positive. EXTREMITIES: 1+ bilateral lower extremity edema. SKIN: No rash. HEMATOLOGIC: No petechiae or purpura. NEUROLOGIC: Nonfocal. PERTINENT LABORATORY DATA AND X-RAYS: Current WBCs 1.8, hemoglobin 9, hematocrit 27.1, platelet count is 33,000. 29% neutrophils, 9% bands, 58% lymphocytes. Sodium 135, potassium 3.6, chloride 106, CO2 is 24, BUN is 14, creatinine 0.55, calcium 7.2, bilirubin 0.7, AST is 26, ALT is 21, alkaline phosphatase is 55, serum total protein is 4.5, albumin 2.5, globulin 2. Urine is negative for bacteria. Chest x-ray showed slightly worse right-sided pleural effusion. ASSESSMENT: 1. Stage IV breast cancer. 2. Convalescence after chemotherapy. 3. Chronic pancytopenia. DISCUSSION: The patient is seen by Dr. Huffman and Dr. Chairez, plan on a PleurX catheter placed to palliate the pleural effusion. Dietary has been consulted to assist with dietary needs, the patient has protein deficient malnutrition. We will continue to monitor her CBC and provide supportive care. Thank you for the consult. Job ID: [id number]
[2020-02-05 05:38] LABS: INR-International Normal Ratio 1.2; PTT 33.5 sec (22.9-36.1); Prothrombin Time 14.9 sec (12.0-14.7)
[2020-02-05 06:02] LABS: Anion Gap 12 mmol/L (10-20); BUN (Urea Nitrogen) 11 mg/dL (9.8-20.1); Calc. Creatinine Clearance 68 mL/min (70-130); Calcium 7.5 mg/dL (7.8-10.44); Carbon Dioxide 22 mmol/L (23-31); Chloride 105 mmol/L (98-107); Estimated GFR-MDRD Greater than 90; Glucose 88 mg/dL (80-115); Magnesium 1.9 mg/dL (1.6-2.6); Potassium 3.5 mmol/L (3.5-5.1); Sodium 135 mmol/L (136-145)
[2020-02-05 06:03] LABS: Band 5 % (5-11); Hemoglobin 11.6 g/dL (12.0-16.0); Lymphocytes 39 % (21-51); MDiff Complete? YES; Macrocytosis SLIGHT = 6-15 cells (100X) (0-5/hpf); Mean Corpuscular Hemoglobin 36.7 pg (27.0-31.0); Mean Platelet Volume 10.7 fL (7.4-10.4); Monocytes 21 % (0-10); Neutrophil 35 % (42-75); Nucleated RBC 1 % (0); Platelet Count 33 thou/uL (130-400); Platelet Morphology Comment Appears Decreased; RBC Distribution Width 20.9 % (11.5-14.5); Red Blood Cell (RBC) Count 3.17 mill/uL (4.20-5.40); White Blood Cell (WBC) Count 1.9 thou/uL (4.8-10.8)
--- NOTE | 2020-02-05 07:41 | CT ---
PRELIMINARY REPORT/[facility]/EMERGENCY AFTER HOURS PROCEDURE: EXAM: CT Head Without Intravenous Contrast. CLINICAL HISTORY: PT FELL AND HIT HER HEAD TECHNIQUE: Axial computed tomography images of the head/brain without intravenous contrast. COMPARISON: None provided. FINDINGS: BRAIN: No acute intraparenchymal hemorrhage. No mass lesion. No CT evidence for acute territorial inf arct. No midline shift. Prominent extra-axial CSF space in the anterior left middle cranial fossa that is isodense to the CSF likely represent arachnoid cyst. VENTRICLES: No hydrocephalus. ORBITS: The orbits are unremarkable. SINUSES AND MASTOIDS: Opacified left sphenoid sinus and posterior left ethmoid air cells. The [place] sinuses and mastoid air cells are otherwise clear. SOFT TISSUES: No significant facial or scalp soft tissue swelling evident. No radiopaque foreign body is seen. BONES: No acute skull fracture. IMPRESSION: 1. No acute intracranial abnormality. 2. 2 x 3.6 cm left anterior middle cranial fossa arachnoid cyst. 3. Opacified left sphenoid and posterior ethmoid air cells. ELECTRONICALLY SIGNED BY: Félix Farrell DO Feb 05, 2020 6:39:38 AM CDT FINAL REPORT: CT BRAIN WITHOUT CONTRAST: I agree with the report given by Dr. Félix Farrell [facility]. Transcribed Date/Time: 02/05/2020 8:00 AM
--- NOTE | 2020-02-05 08:47 | RAD ---
PORTABLE CHEST 1 VIEW: DATE: 02/05/2020. TIME: 7:39 AM. HISTORY: Dyspnea. COMPARISON: 02/03/2020. FINDINGS/IMPRESSION: Right-sided PICC line remains in place. The heart size is normal. The aorta is tortuous. Bilateral pleural effusions are again seen, right larger than left, with adjacent infiltrate/atelectatic boc[place] es. No pneumothoraces are identified. POS: OFF
[2020-02-05] MEDS: Famotidine 20 MG TAB PO SCH ×2 (09:54→21:28)
[2020-02-05] MEDS: Aluminum & Magnesium Hydroxide 60 ML, Lidocaine 2% Viscous Solution 30 ML, diphenhydrAM... SSW PRN ×2 (09:54→21:30)
[2020-02-05] MEDS: Sodium Chloride 0.65% Nasal 44 ML BOT EA NARE SCH ×3 (09:55→21:30)
[2020-02-05] MEDS ORDERED: PROPOFOL 200 MG/20 ML VIAL ONE (10:06)
[2020-02-05] MEDS ORDERED: Fentanyl 100 MCG/2 ML VIAL ONE (11:18)
[2020-02-05] MEDS ORDERED: Ondansetron HCl/PF 4 MG/2 ML Vial IVP PRN (11:18)
[2020-02-05] MEDS ORDERED: Midazolam HCl 2 mg/2 ml Vial ONE (11:18)
[2020-02-05] MEDS ORDERED: ceFAZolin 1 GM/D5W 1 GM in Premix Bag 1 BAG IVPB SCH (12:00)
[2020-02-05 12:32] LABS: SARS-CoV-2 MS2 Positive; SARS-CoV-2 N Gene Negative; SARS-CoV-2 S Gene Negative; SARS-CoV-2 by NAA Not Detected (NotDetected); SARS-CoV-2 orf1ab Negative
--- NOTE | 2020-02-05 14:32 | PDOC.MOPN ---
Interval History: sleeping - Vital Signs Vital Signs: Vital Signs (12 hours) Temp Pulse Pulse Pulse Pulse Resp BP 02/05/20 14:00 98.7 F 125 H 20 02/05/20 09:23 117 H 146 H 116 H 02/05/20 08:03 98.4 F 111 H 20 02/05/20 08:00 111/68 02/05/20 06:01 111 H BP BP Pulse Ox Pulse Ox Pulse Ox Pulse Ox 02/05/20 14:00 107/63 98 02/05/20 09:23 94 L 98 94 L 02/05/20 08:03 100/63 95 02/05/20 08:00 111/60 95 02/05/20 06:01 Weight Admit Weight 95 lb 8 oz Weight 95 lb 8 oz - Physical Exam General: No acute distress Lungs: Clear to auscultation, Normal air movement Cardiovascular: Other (baseline tachycardia) Neurological: Normal speech - Labs Result Diagrams: 02/05/20 05:17 02/05/20 05:17 Lab results: Laboratory Results - last 24 hr 02/05/20 05:17: PT 14.9 H, INR 1.2, APTT 33.5 02/05/20 05:17: Phosphorus 2.0 L 02/05/20 05:17: Cortisol 16.20 02/05/20 05:17: WBC 1.9 L, RBC 3.17 L, Hgb 11.6 L, Hct 34.2 L, MCV 108.0 H, MCH 36.7 H, MCHC 34.0, RDW 20.9 H, Plt Count 33 L, MPV 10.7 H, Neutrophils % (Manual ) 35 L, Band Neuts % (Manual) 5, Lymphocytes % (Manual) 39, Monocytes % (Manual ) 21 H, Nucleated RBCs # (Man) 1 H, Plt Morphology Comment Appears Decreased L, Macrocytosis SLIGHT = 6-15 cells 02/05/20 05:17: Sodium 135 L, Potassium 3.5, Chloride 105, Carbon Dioxide 22 L, Anion Gap 12, BUN 11, Creatinine 0.57 L, Estimated GFR (MDRD) Greater than 90, Glucose 88, Calcium 7.5 L, Magnesium 1.9 02/04/20 14:50: COVID-19 PCR Not Detected Status: lab reviewed by me A/P - Problem (1) Breast cancer Current Visit: Yes Status: Acute (2) Pleural effusion Current Visit: Yes Code(s): J90 - PLEURAL EFFUSION, NOT ELSEWHERE CLASSIFIED Status: Acute (3) Symptomatic anemia Current Visit: No Code(s): D64.9 - ANEMIA, UNSPECIFIED Status: Acute - Plan Plan: 1. CT brain negative after fall 2. pleurx cath placed today. 1.5L off 3. monitor CBC
--- NOTE | 2020-02-05 16:48 | PDOC.HOSPP ---
- Subjective Encounter Date: 02/05/20 Encounter Time: 14:00 Subjective: Patient seen and examined for generalized weakness. Overnight events noted. Underwent Pleurx catheter. Shortness of breath improved after the procedure. Denies any cough, shortness of breath at rest or palpitations. - Objective Vital Signs & Weight: Vital Signs (12 hours) Temp Pulse Pulse Pulse Pulse Resp BP 02/05/20 15:00 118 H 20 02/05/20 14:00 98.7 F 125 H 20 02/05/20 09:23 117 H 146 H 116 H 02/05/20 08:03 98.4 F 111 H 20 02/05/20 08:00 111/68 02/05/20 06:01 111 H BP BP Pulse Ox Pulse Ox Pulse Ox Pulse Ox 02/05/20 15:00 92/59 L 98 02/05/20 14:00 107/63 98 02/05/20 09:23 94 L 98 94 L 02/05/20 08:03 100/63 95 02/05/20 08:00 111/60 95 02/05/20 06:01 Weight Admit Weight 95 lb 8 oz Weight 95 lb 8 oz I&O: 02/04/20 02/05/20 02/06/20 06:59 06:59 06:59 Intake Total 180 300 Balance 180 300 Result Diagrams: 02/05/20 05:17 02/05/20 05:17 Radiology Reviewed by me: Yes (Chest x-raynegative for infiltrate) Hospitalist ROS - Review of Systems Respiratory: denies: cough, dry, shortness of breath, hemoptysis, SOB with excertion, pleuritic pain, sputum, wheezing, other Cardiovascular: denies: chest pain, palpitations, orthopnea, paroxysmal noc. dyspnea, edema, light headedness, other - Medication Medications: Active Medications Generic Name Dose Route Start Last Admin Trade Name Freq PRN Reason Stop Dose Admin Al Hydroxide/Mg Hydroxide 60 0 ml 02/03/20 18:38 02/05/20 09:54 ml/ Lidocaine HCl 30 ml/ SSW 10 ml Diphenhydramine HCl 75 mg PRN PRN Administration Mouth pain Famotidine 20 mg 02/04/20 09:00 02/05/20 09:54 Pepcid PO Not Given BID JENNIFER Sodium Chloride 0 ml 02/04/20 09:00 02/05/20 09:55 [place] Nasal [place] 0.65% EA NARE 1 spr TID JENNIFER Administration - Exam General Appearance: NAD Neck: supple, no JVD Heart: RRR, no gallops Respiratory: no wheezes, rhonchi Respiratory - other findings: Diminished air entry at bases Gastrointestinal: soft, non-distended Extremities: no cyanosis Neurological: no new deficit Hosp A/P - Plan DVT proph w/SCDs (Not on heparin due to thrombocytopenia) Shortness of breath due to recurrent pleural effusion Recent thoracentesis consistent with transudative effusion Generalized weakness Mechanical fall on 02/[address] brain negative for bleed. Hypophosphatemia Metastatic breast cancer on chemotherapy Chronic pancytopenia probably due to chemotherapy CKD stage II Moderate protein calorie malnutrition Hyponatremia Dehydration on admission Epistaxismildresolved Plan: 02/04 Patient underwent Pleurx catheter placement. Continue to monitor closely. Will consult behavioral health case manager for home health care. Patient is declining long-term facility or inpatient rehab. Replace phosphorus. Case discussed with oncology service. Continue current medication as above. 02/03 Patient had a recent thoracentesis consistent with transudate. Chest x-ray reviewed. Pulmonary and oncology input appreciated. Cardiovascular team consult and for Pleurx catheter. Recheck labs in a.m. Hold Lasix for now. Check cortisol level in a.m. At nasal saline sprays. COVID testing pending at this time. Add Ensure.
--- NOTE | 2020-02-05 17:46 | OP ---
DATE OF PROCEDURE: 02/05/2020 PREOPERATIVE DIAGNOSIS: Recurrent right pleural effusion in a woman with end-stage lobular cell breast cancer. POSTOPERATIVE DIAGNOSIS: Recurrent right pleural effusion in a woman with end-stage lobular cell breast cancer. PROCEDURE PERFORMED: Right PleurX catheter placement. ANESTHESIA: Sedation, provided by Dr. Jack Clark with 1% lidocaine for local. DESCRIPTION OF PROCEDURE: After consent was obtained, the patient was brought to the operating room and placed in supine position on the operating room table. Appropriate central line and monitoring was placed and sedation begun. Chest wall was anesthetized and prepped and draped in the usual sterile fashion. 1% lidocaine was injected for local anesthesia. The chest was entered in the midclavicular line with clear fluid aspirate. Guidewire was placed. The catheter was tunneled from the midclavicular line over to the midaxillary line wire site. The tunnel was then dilated and Peel-Away sheath placed. Catheter was passed through the peel-away sheath and sheath was removed. Catheter was secured with a silk suture. Peel-away sheath site was closed with 0 Vicryl suture. The catheter was then aspirated and approximately a liter and a half of fluid was evacuated. She tolerated the procedure well and was transferred to recovery room in stable condition. Job ID: [id number]
[2020-02-05] MEDS: Acetaminophen 325 MG TAB PO PRN (23:51)
[2020-02-06] MEDS: Aluminum & Magnesium Hydroxide 60 ML, Lidocaine 2% Viscous Solution 30 ML, diphenhydrAM... SSW PRN ×4 (04:24→20:27)
[2020-02-06 04:44] LABS: Anion Gap 9 mmol/L (10-20); BUN (Urea Nitrogen) 11 mg/dL (9.8-20.1); Calc. Creatinine Clearance 72 mL/min (70-130); Calcium 7.5 mg/dL (7.8-10.44); Carbon Dioxide 24 mmol/L (23-31); Chloride 105 mmol/L (98-107); Estimated GFR-MDRD Greater than 90; Glucose 100 mg/dL (80-115); Magnesium 1.9 mg/dL (1.6-2.6); Phosphorus 2.4 mg/dL (2.3-4.7); Potassium 3.7 mmol/L (3.5-5.1); Sodium 134 mmol/L (136-145)
[2020-02-06 05:17] LABS: Band 4 % (5-11); Basophilic Stippling SLIGHT = 1-2 cells (100X) (None Seen); Eosinophils 1 % (0-10); Hemoglobin 8.3 g/dL (12.0-16.0); Lymphocytes 43 % (21-51); MDiff Complete? YES; Macrocytosis SLIGHT = 6-15 cells (100X) (0-5/hpf); Mean Corpuscular HGB CONC 33.7 g/dL (32.0-36.0); Mean Corpuscular Hemoglobin 36.6 pg (27.0-31.0); Metamyelocyte 1 % (0-0); Monocytes 18 % (0-10); Neutrophil 33 % (42-75); Platelet Count 40 thou/uL (130-400); RBC Distribution Width 20.7 % (11.5-14.5); Red Blood Cell (RBC) Count 2.28 mill/uL (4.20-5.40); White Blood Cell (WBC) Count 1.8 thou/uL (4.8-10.8)
[2020-02-06 05:23] LABS: Platelet Morphology Comment Appears Decreased
[2020-02-06] MEDS: Famotidine 20 MG TAB PO SCH ×2 (08:15→20:15)
[2020-02-06] MEDS: Sodium Chloride 0.65% Nasal 44 ML BOT EA NARE SCH ×3 (08:15→20:27)
--- NOTE | 2020-02-06 09:52 | PRG ---
DATE OF SERVICE: 02/06/2020 SUBJECTIVE: Odilia Gimenez says she feels better after the tunneled catheter was placed yesterday. OBJECTIVE: VITAL SIGNS: She is afebrile, heart rate 79, respiratory rate is 18, oximetry is 95% on room air, and blood pressure 93/55. She said she had an echocardiogram done yesterday. LUNGS: Remarkable for decreased breath sounds at her left base. HEART: Regular rhythm. ABDOMEN: Soft. IMPRESSION: 1. Transudative effusions, presumably secondary to her chemotherapy, awaiting echocardiogram. 2. Pancytopenia secondary to treatment of her underlying malignancy. She is sweet and pleasant as always. We will continue to follow. Job ID: [id number]
[2020-02-06] MEDS: Folic Acid 1 MG TAB PO SCH (09:53)
[2020-02-06] MEDS: Multivit, Therapeutic 1 TAB PO SCH (09:53)
--- NOTE | 2020-02-06 13:10 | PDOC.MOPN ---
Interval History: feeling better with cath in place - Vital Signs Vital Signs: Vital Signs (12 hours) Temp Pulse Resp BP Pulse Ox 02/06/20 08:00 99.0 F 109 H 18 122/75 95 02/06/20 04:00 98.7 F 99 18 93/55 L 95 Weight Admit Weight 95 lb 8 oz Weight 95 lb 8 oz - Physical Exam General: Alert HEENT: Atraumatic, PERRLA, EOMI, Mucous membr. moist/pink Lungs: Other Cardiovascular: Regular rate, Normal S1, Normal S2, No murmurs, Gallops, Rubs Abdomen: Normal bowel sounds, Soft, No tenderness, No hepatospenomegaly, No masses Neurological: Normal speech - Labs Result Diagrams: 02/06/20 03:46 02/06/20 03:46 Lab results: Laboratory Results - last 24 hr 02/06/20 03:46: WBC 1.8 L, RBC 2.28 L, Hgb 8.3 L, Hct 24.7 L, MCV 108.0 H, MCH 36.6 H, MCHC 33.7, RDW 20.7 H, Plt Count 40 L, MPV 10.0, Neutrophils % (Manual) 33 L, Band Neuts % (Manual) 4 L, Lymphocytes % (Manual) 43, Monocytes % (Manual ) 18 H, Eosinophils % (Manual) 1, Metamyelocytes % (Man) 1 H, Plt Morphology Comment Appears Decreased L, Basophilic Stippling SLIGHT = 1-2 cells, Macrocytosis SLIGHT = 6-15 cells 02/06/20 03:46: Sodium 134 L, Potassium 3.7, Chloride 105, Carbon Dioxide 24, Anion Gap 9 L, BUN 11, Creatinine 0.54 L, Estimated GFR (MDRD) Greater than 90 , Glucose 100, Calcium 7.5 L, Phosphorus 2.4, Magnesium 1.9 Status: lab reviewed by me A/P - Problem (1) Breast cancer Current Visit: Yes Status: Acute (2) Pleural effusion Current Visit: Yes Code(s): J90 - PLEURAL EFFUSION, NOT ELSEWHERE CLASSIFIED Status: Acute (3) Symptomatic anemia Current Visit: No Code(s): D64.9 - ANEMIA, UNSPECIFIED Status: Acute - Plan Plan: continue drainage daily encourage oral intake PT working with patient discussed poss rehab on discharge.
--- NOTE | 2020-02-06 13:39 | PDOC.HOSPP ---
- Subjective Encounter Date: 02/06/20 Encounter Time: 11:00 Subjective: Patient seen and examined for generalized weakness with breast cancer and pleural effusion. Pleurx catheter placed yesterday. Around 600 mL pleural fluid was drained earlier. Symptomatically feels somewhat better. Very poor appetite. - Objective Vital Signs & Weight: Vital Signs (12 hours) Temp Pulse Resp BP Pulse Ox 02/06/20 12:00 99.0 F 104 H 18 104/58 L 95 02/06/20 08:00 99.0 F 109 H 18 122/75 95 02/06/20 04:00 98.7 F 99 18 93/55 L 95 Weight Admit Weight 95 lb 8 oz Weight 95 lb 8 oz I&O: 02/05/20 02/06/20 02/07/20 06:59 06:59 06:59 Intake Total 300 740 200 Output Total 600 Balance 300 740 -400 Result Diagrams: 02/06/20 03:46 02/06/20 03:46 Hospitalist ROS - Review of Systems Respiratory: denies: cough, dry, shortness of breath, hemoptysis, SOB with excertion, pleuritic pain, sputum, wheezing, other Cardiovascular: denies: chest pain, palpitations, orthopnea, paroxysmal noc. dyspnea, edema, light headedness, other - Medication Medications: Active Medications Generic Name Dose Route Start Last Admin Trade Name Freq PRN Reason Stop Dose Admin Acetaminophen 650 mg 02/03/20 19:25 02/05/20 23:51 Tylenol PO 650 mg Q4H PRN Administration Headache/Fever/Mild Pain (1-3) Al Hydroxide/Mg Hydroxide 60 0 ml 02/03/20 18:38 02/06/20 08:14 ml/ Lidocaine HCl 30 ml/ SSW 10 ml Diphenhydramine HCl 75 mg PRN PRN Administration Mouth pain Famotidine 20 mg 02/04/20 09:00 02/06/20 08:15 Pepcid PO Not Given BID JENNIFER Folic Acid 1 mg 02/06/20 09:00 02/06/20 09:53 Folvite PO 1 mg DAILY JENNIFER Administration Multivitamins 1 tab 02/06/20 09:00 02/06/20 09:53 Theragran PO 1 tab DAILY JENNIFER Administration Sodium Chloride 0 ml 02/04/20 09:00 02/06/20 08:15 [place] Nasal [place] 0.65% EA NARE 1 spr TID JENNIFER Administration - Exam General Appearance: ill appearing Neck: supple, no JVD Heart: RRR, no gallops Respiratory: no wheezes, rhonchi (Scattered) Respiratory - other findings: Diminished air entry at bases Gastrointestinal: soft, non-distended, no guarding, no rigidity Extremities: no cyanosis Neurological: no new deficit Psychiatric: normal affect, A&O x 3 Hosp A/P - Plan DVT proph w/SCDs Shortness of breath due to recurrent pleural effusion Recent thoracentesis consistent with transudative effusion Generalized weakness Mechanical fall on 02/[address] brain negative for bleed. Hypophosphatemia Hypomagnesemia Metastatic breast cancer on chemotherapy Chronic pancytopenia probably due to chemotherapy CKD stage II Moderate protein calorie malnutrition Hyponatremia Dehydration on admission Epistaxismildresolved Plan: 02/05 Continue supportive care. Continue physical therapy and Occupational Therapy. Replace magnesium. Oncology following. Home health care set up. Continue other medications as above. Recheck labs in a.m. Continue neutropenic precautions. 02/04 Patient underwent Pleurx catheter placement. Continue to monitor closely. Will consult registered nurse hh case manager for home health care. Patient is declining [facility] facility or inpatient rehab. Replace phosphorus. Case discussed with oncology service. Continue current medication as above. 02/03 Patient had a recent thoracentesis consistent with transudate. Chest x-ray reviewed. Pulmonary and oncology input appreciated. Cardiovascular team consult and for Pleurx catheter. Recheck labs in a.m. Hold Lasix for now. Check cortisol level in a.m. At nasal saline sprays. COVID testing pending at this time. Add Ensure.
[2020-02-06] MEDS ORDERED: Electrolyte Replacement Protoc 1 EACH EACH FS ONE (13:42)
[2020-02-06] MEDS ORDERED: Magnesium 2 GM/50 ML 2 GM in Premix Bag 1 BAG IVPB SCH (14:00)
[2020-02-06] MEDS ORDERED: Electrolyte Replacement Protocol FS PRN (14:00)
[2020-02-06] MEDS: Acetaminophen 325 MG TAB PO PRN (17:02)
[2020-02-07 05:12] LABS: Anion Gap 10 mmol/L (10-20); BUN (Urea Nitrogen) 9 mg/dL (9.8-20.1); Calc. Creatinine Clearance 75 mL/min (70-130); Calcium 7.4 mg/dL (7.8-10.44); Carbon Dioxide 24 mmol/L (23-31); Chloride 106 mmol/L (98-107); Estimated GFR-MDRD Greater than 90; Glucose 79 mg/dL (80-115); Hemoglobin 8.4 g/dL (12.0-16.0); Lymphocytes 62 % (21-51); MDiff Complete? YES; Magnesium 2.1 mg/dL (1.6-2.6); Mean Corpuscular HGB CONC 33.1 g/dL (32.0-36.0); Mean Corpuscular Hemoglobin 35.9 pg (27.0-31.0); Mean Platelet Volume 9.2 fL (7.4-10.4); Monocytes 14 % (0-10); Neutrophil 24 % (42-75); Phosphorus 2.4 mg/dL (2.3-4.7); Platelet Count 46 thou/uL (130-400); Platelet Morphology Comment Appears Decreased; Potassium 3.8 mmol/L (3.5-5.1); RBC Distribution Width 20.4 % (11.5-14.5); Red Blood Cell (RBC) Count 2.33 mill/uL (4.20-5.40); Sodium 136 mmol/L (136-145); White Blood Cell (WBC) Count 2.1 thou/uL (4.8-10.8)
[2020-02-07] MEDS: Aluminum & Magnesium Hydroxide 60 ML, Lidocaine 2% Viscous Solution 30 ML, diphenhydrAM... SSW PRN ×4 (05:16→20:45)
[2020-02-07] MEDS: Acetaminophen 325 MG TAB PO PRN ×2 (08:25→16:54)
[2020-02-07] MEDS: Famotidine 20 MG TAB PO SCH ×2 (08:25→21:01)
[2020-02-07] MEDS: Folic Acid 1 MG TAB PO SCH (08:25)
[2020-02-07] MEDS: Multivit, Therapeutic 1 TAB PO SCH (08:25)
[2020-02-07] MEDS: Sodium Chloride 0.65% Nasal 44 ML BOT EA NARE SCH ×3 (08:35→20:44)
--- NOTE | 2020-02-07 14:17 | PRG ---
DATE OF SERVICE: 02/07/2020 SUBJECTIVE: The patient is extremely pleasant. shortness of breath currently. OBJECTIVE: VITAL SIGNS: On exam, temperature 98.7, pulse 109, respirations 14, and O2 saturation 95% on room air. GENERAL: She is a thin female, in no acute distress. HEENT: Remarkable for alopecia. NECK: No adenopathy or JVD. LUNGS: Fairly clear anteriorly. CARDIAC: S1 and S2. Regular. ABDOMEN: Soft. EXTREMITIES: No edema. ASSESSMENT: Recurrent right pleural effusion. PLAN: Intermittent drainage of PleurX catheter as needed. Hopefully, discharged to home by tomorrow. Job ID: [id number]
--- NOTE | 2020-02-07 15:32 | PDOC.HOSPP ---
- Subjective Encounter Date: 02/07/20 Encounter Time: 10:00 Subjective: Patient seen and examined for recurrent right-sided pleural effusion. Shortness of breath improving. Symptomatically feels better. Mild dry cough. No nausea, fever or chills reported. - Objective Vital Signs & Weight: Vital Signs (12 hours) Temp Pulse Pulse Pulse Resp BP BP 02/07/20 12:00 98.7 F 109 H 14 02/07/20 08:43 150 H 98 98/63 111/67 02/07/20 08:00 98.7 F 106 H 18 02/07/20 04:00 98.1 F 109 H 14 BP Pulse Ox 02/07/20 12:00 89/57 L 95 02/07/20 08:43 02/07/20 08:00 87/58 L 95 02/07/20 04:00 95/53 L 94 L Weight Admit Weight 95 lb 8 oz Weight 95 lb 8 oz I&O: 02/06/20 02/07/20 02/08/20 06:59 06:59 06:59 Intake Total 740 910 550 Output Total 600 Balance 740 310 550 Result Diagrams: 02/07/20 04:40 02/07/20 04:40 Hospitalist ROS - Review of Systems Cardiovascular: denies: chest pain, palpitations, orthopnea, paroxysmal noc. dyspnea, edema, light headedness, other Gastrointestinal: denies: nausea, vomiting, abdominal pain, diarrhea, constipation, melena, hematochezia, other - Medication Medications: Active Medications Generic Name Dose Route Start Last Admin Trade Name Freq PRN Reason Stop Dose Admin Acetaminophen 650 mg 02/03/20 19:25 02/07/20 08:25 Tylenol PO 650 mg Q4H PRN Administration Headache/Fever/Mild Pain (1-3) Al Hydroxide/Mg Hydroxide 60 0 ml 02/03/20 18:38 02/07/20 08:26 ml/ Lidocaine HCl 30 ml/ SSW 10 ml Diphenhydramine HCl 75 mg PRN PRN Administration Mouth pain Famotidine 20 mg 02/04/20 09:00 02/07/20 08:25 Pepcid PO Not Given BID JENNIFER Folic Acid 1 mg 02/06/20 09:00 02/07/20 08:25 Folvite PO 1 mg DAILY JENNIFER Administration Multivitamins 1 tab 02/06/20 09:00 02/07/20 08:25 Theragran PO 1 tab DAILY JENNIFER Administration Sodium Chloride 0 ml 02/04/20 09:00 02/07/20 08:35 [place] Nasal [place] 0.65% EA NARE 1 spr TID JENNIFER Administration - Exam General Appearance: NAD Neck: supple, no JVD Heart: RRR, no gallops Respiratory: no wheezes, rales, rhonchi Gastrointestinal: soft, non-tender, normal bowel sounds Extremities: no cyanosis Skin: normal turgor Psychiatric: normal affect, A&O x 3 Hosp A/P (1) Recurrent right pleural effusion Code(s): J90 - PLEURAL EFFUSION, NOT ELSEWHERE CLASSIFIED Status: Acute (2) Generalized weakness Code(s): R53.1 - WEAKNESS Status: Acute (3) Shortness of breath Code(s): R06.02 - SHORTNESS OF BREATH Status: Acute (4) CKD (chronic kidney disease) stage 2, GFR 60-89 ml/min Code(s): N18.2 - CHRONIC KIDNEY DISEASE, STAGE 2 (MILD) Status: Acute (5) Electrolyte abnormality Code(s): E87.8 - OTH DISORDERS OF ELECTROLYTE AND FLUID BALANCE, NEC Status: Acute (6) Breast cancer Status: Chronic (7) Metastatic breast cancer Code(s): C50.919 - MALIGNANT NEOPLASM OF UNSP SITE OF UNSPECIFIED FEMALE BREAST Status: Chronic (8) Moderate protein-calorie malnutrition Code(s): E44.0 - MODERATE PROTEIN-CALORIE MALNUTRITION Status: Chronic (9) Pancytopenia due to chemotherapy Code(s): D61.810 - ANTINEOPLASTIC CHEMOTHERAPY INDUCED PANCYTOPENIA Status: Chronic - Plan DVT proph w/SCDs 02/06 Await echocardiogram. Continue physical and occupational therapy. Home health care evaluation. Patient is declining placement. Oncology and pulmonary following. Discharge in a.m. if okay with consultants. Lasix on hold. 02/05 Continue supportive care. Continue physical therapy and Occupational Therapy. Replace magnesium. Oncology following. Home health care set up. Continue other medications as above. Recheck labs in a.m. Continue neutropenic precautions. 02/04 Patient underwent Pleurx catheter placement. Continue to monitor closely. Will consult egg caser for home health care. Patient is declining [facility] facility or inpatient rehab. Replace phosphorus. Case discussed with oncology service. Continue current medication as above. 02/03 Patient had a recent thoracentesis consistent with transudate. Chest x-ray reviewed. Pulmonary and oncology input appreciated. Cardiovascular team consult and for Pleurx catheter. Recheck labs in a.m. Hold Lasix for now. Check cortisol level in a.m. At nasal saline sprays. COVID testing pending at this time. Add Ensure.
[2020-02-08 05:27] LABS: Anion Gap 11 mmol/L (10-20); BUN (Urea Nitrogen) 8 mg/dL (9.8-20.1); Calc. Creatinine Clearance 75 mL/min (70-130); Calcium 7.1 mg/dL (7.8-10.44); Carbon Dioxide 22 mmol/L (23-31); Chloride 105 mmol/L (98-107); Estimated GFR-MDRD Greater than 90; Glucose 81 mg/dL (80-115); Phosphorus 2.6 mg/dL (2.3-4.7); Potassium 3.6 mmol/L (3.5-5.1); Sodium 134 mmol/L (136-145)
[2020-02-08 05:51] LABS: Hemoglobin 8.6 g/dL (12.0-16.0); Hypochromia SLIGHT = 6-15 cells (100X) (0-5/hpf); Lymphocytes 44 % (21-51); MDiff Complete? YES; Macrocytosis SLIGHT = 6-15 cells (100X) (0-5/hpf); Mean Corpuscular HGB CONC 33.3 g/dL (32.0-36.0); Mean Corpuscular Hemoglobin 36.3 pg (27.0-31.0); Mean Platelet Volume 8.9 fL (7.4-10.4); Monocytes 6 % (0-10); Neutrophil 50 % (42-75); Platelet Count 54 thou/uL (130-400); Platelet Morphology Comment Appears Decreased; Polychromasia SLIGHT = 2-3 cells (100X) (0-2/hpf); RBC Distribution Width 20.4 % (11.5-14.5); Red Blood Cell (RBC) Count 2.37 mill/uL (4.20-5.40); White Blood Cell (WBC) Count 2.8 thou/uL (4.8-10.8)
[2020-02-08] MEDS ORDERED: Magnesium 2 GM/50 ML 2 GM in Premix Bag 1 BAG IVPB SCH (06:30)
[2020-02-08] MEDS: Folic Acid 1 MG TAB PO SCH (09:00)
[2020-02-08] MEDS: Famotidine 20 MG TAB PO SCH (09:00)
[2020-02-08] MEDS: Multivit, Therapeutic 1 TAB PO SCH (09:00)
[2020-02-08] MEDS: Acetaminophen 325 MG TAB PO PRN (09:00)
[2020-02-08] MEDS: Sodium Chloride 0.65% Nasal 44 ML BOT EA NARE SCH (09:02)
[2020-02-08] MEDS: Aluminum & Magnesium Hydroxide 60 ML, Lidocaine 2% Viscous Solution 30 ML, diphenhydrAM... SSW PRN (09:02)
[2020-02-08 12:20] VITALS: BP 93/64; TEMP 97.7
--- NOTE | 2020-02-08 14:27 | PDOC.MOPN ---
Interval History: doing well, eating. Plan for dc home today. - Vital Signs Vital Signs: Vital Signs (12 hours) Temp Pulse Resp BP BP BP Pulse Ox 02/08/20 12:18 97.7 F 111 H 18 93/64 02/08/20 12:11 98.5 F 70 18 128/78 95 02/08/20 08:00 99.4 F 100 16 94/54 L 93 L 02/08/20 04:00 98.6 F 112 H 18 101/73 111/71 102/73 93 L Weight Admit Weight 95 lb 8 oz Weight 95 lb 8 oz - Physical Exam General: Alert, Oriented x3, No acute distress HEENT: Atraumatic, PERRLA, EOMI, Mucous membr. moist/pink Lungs: Other (pleurx cath) Cardiovascular: Regular rate Abdomen: Normal bowel sounds Extremities: No clubbing, No cyanosis, No edema, Normal pulses, No tenderness/ swelling Neurological: Normal speech - Labs Result Diagrams: 02/08/20 04:55 02/08/20 04:55 Lab results: Laboratory Results - last 24 hr 02/08/20 04:55: WBC 2.8 L, RBC 2.37 L, Hgb 8.6 L, Hct 25.9 L, MCV 109.0 H, MCH 36.3 H, MCHC 33.3, RDW 20.4 H, Plt Count 54 L, MPV 8.9, Neutrophils % (Manual) 50, Lymphocytes % (Manual) 44, Monocytes % (Manual) 6, Hypochromia SLIGHT = 6- 15 cells, Plt Morphology Comment Appears Decreased L, Polychromasia SLIGHT = 2- 3 cells, Macrocytosis SLIGHT = 6-15 cells 02/08/20 04:55: Sodium 134 L, Potassium 3.6, Chloride 105, Carbon Dioxide 22 L, Anion Gap 11, BUN 8 L, Creatinine 0.52 L, Estimated GFR (MDRD) Greater than 90 , Glucose 81, Calcium 7.1 L, Phosphorus 2.6, Magnesium 2.0 Status: lab reviewed by me A/P - Problem (1) Breast cancer Current Visit: Yes Status: Chronic - Plan Plan: ok to dc home follow-up on with Dr. Calvillo.
--- NOTE | 2020-02-09 22:42 | EKG ---
Test Reason : Blood Pressure : / mmHG Vent. Rate : 101 BPM Atrial Rate : 101 BPM P-R Int : 126 ms QRS Dur : 064 ms QT Int : 354 ms P-R-T Axes : 076 079 080 degrees QTc Int : 459 ms Sinus tachycardia Low voltage QRS Nonspecific T wave abnormality Abnormal ECG No previous ECGs available Confirmed by TARA SANCHEZ, DR. Vázquez ([id number]) on 02/09/2020 10:42:03 PM Referred By: AFFRAM Confirmed By:DR. Gurpreet PACHECO MD
--- NOTE | 2020-02-10 01:28 | DIS ---
DATE OF ADMISSION: 02/03/2020 DATE OF DISCHARGE: 02/08/2020 DISCHARGE DIAGNOSES: 1. Recurrent malignant pleural effusion. 2. Metastatic breast cancer. 3. Dyspnea. 4. Pancytopenia. 5. Protein-calorie malnutrition, moderate. 6. Chronic kidney disease, stage 2. HISTORY: This patient is a 64-year-old female with a history of metastatic breast cancer who had previously been admitted with a transudative right pleural effusion, who had rapid recurrence of the effusion resulting in worsening shortness of breath. The patient returned back to the hospital, where she had chest x-ray confirming bilateral pleural effusions, right greater than left. She was seen in consultation by Pulmonary and by Cardiovascular Surgery and Oncology. Ultimately, she had a right-sided PleurX catheter placed, which was functioning well. With that, the patient's respiratory status improved, such that she was breathing much more comfortably and was felt to be stable for discharge. She did also have an echocardiogram, which showed no evidence of tamponade. It did reveal the initial large pleural effusion, EF was 60% to 65%. There was trace MR present and mild TR present. PHYSICAL EXAMINATION: VITAL SIGNS: On the day of discharge, temperature was 98.5, pulse 105, respirations 18, O2 saturation 95% on room air, and blood pressure 105/67. GENERAL: She was awake and alert. HEART: Regular. LUNGS: Slightly diminished at the bases, but generally clear. ABDOMEN: Benign. EXTREMITIES: Had no edema. DISPOSITION: The patient is discharged to home. ACTIVITY: As tolerated. She has no dietary restrictions. MEDICATIONS: 1. Senokot-S two p.o. b.i.d. 2. [place] nasal spray p.r.n. 3. Folic acid 1 mg daily. 4. Multivitamin one p.o. daily. 5. Tylenol p.r.n. 6. Megace 400 mg daily. 7. Potassium 20 mEq daily. 8. Lasix 40 mg p.o. daily. FOLLOWUP: She is to follow up with Dr. Maria G Calvillo and will have [facility]. She can return to the hospital at anytime she has need to do so. TIME SPENT: Time spent in discharge activities was greater than 30 minutes. Job ID: [id number]
== END 2020-02-08 16:15 | disposition home health service (06) | DRG 186 ==
LOC: ONC 17:19
PROVIDERS: ADMIT Student in an Organized Health Care Education/Training Program; ATTEND Student in an Organized Health Care Education/Training Program
PROC: 0W9930Z Drainage of Right Pleural Cavity with Drainage Device, Percutaneous Approach (ICD-10-PCS; principal; 2020-02-05)
DX: J90 Pleural effusion, not elsewhere classified (principal); D61.810 Antineoplastic chemotherapy induced pancytopenia; E44.0 Moderate protein-calorie malnutrition; Z68.1 Body mass index [BMI] 19.9 or less, adult; E87.1 Hypo-osmolality and hyponatremia; C79.51 Secondary malignant neoplasm of bone; Z20.828 Contact with and (suspected) exposure to other viral communicable diseases; N18.2 Chronic kidney disease, stage 2 (mild); E86.0 Dehydration; R04.0 Epistaxis; C50.912 Malignant neoplasm of unspecified site of left female breast; T45.1X5A Adverse effect of antineoplastic and immunosuppressive drugs, initial encounter; E83.39 Other disorders of phosphorus metabolism; E83.42 Hypomagnesemia; Z17.1 Estrogen receptor negative status [ER-]; Z79.899 Other long term (current) drug therapy
CPT/HCPCS: 36415; 70450; 71045; 71046; 80048; 80053; 81003; 81015; 82248; 82533; 83615; 83735; 84100; 84550; 85025; 85610; 85730; 87635; 93005; 93010; 93306; J2250; J2704; J3010; J3475; Q0163; S0028; U0003

== ENCOUNTER 2020-03-10 10:40 | Outpatient (CLI) | payer OTHER ==
[2020-03-11 15:23] LABS: SARS-CoV-2 MS2 Positive; SARS-CoV-2 N Gene Negative; SARS-CoV-2 S Gene Negative; SARS-CoV-2 by NAA Not Detected (NotDetected); SARS-CoV-2 orf1ab Negative
--- NOTE | 2020-03-13 17:25 | EKG ---
Test Reason : Blood Pressure : / mmHG Vent. Rate : 128 BPM Atrial Rate : 128 BPM P-R Int : 120 ms QRS Dur : 062 ms QT Int : 318 ms P-R-T Axes : 091 101 091 degrees QTc Int : 464 ms Sinus tachycardia Rightward axis Nonspecific ST-T changes Low voltage QRS Abnormal ECG When compared with ECG of 05-FEB-2020 06:15, No significant change was found Confirmed by DR. Kate TRINH (3) on 03/13/2020 5:25:10 PM Referred By: DR DIALLO Confirmed By:DR. Kate TRINH
== END 2020-03-10 10:41 | disposition home or self-care (01) ==
LOC: LABBT 10:40
PROVIDERS: ATTEND Specialist
DX: Z01.818 Encounter for other preprocedural examination (principal); Z20.828 Contact with and (suspected) exposure to other viral communicable diseases; C79.51 Secondary malignant neoplasm of bone
CPT/HCPCS: 87635; 93005; 93010; U0003

== ENCOUNTER 2020-03-14 08:04 | Day surgery (SDC) | payer OTHER ==
[2020-03-13 12:03] VITALS: BMI 18.3
[2020-03-14] MEDS ORDERED: Ketorolac Tromethamine 30 MG/ML VIAL ONE (08:50)
[2020-03-14] MEDS ORDERED: Acetaminophen 500 MG TAB ONE (08:50)
[2020-03-14 09:55] LABS: #Basophils 0.1 thou/uL (0.0-0.2); #Eosinphils 0.1 thou/uL (0.0-0.7); #Lymphocytes 1.4 thou/uL (1.20-3.40); #Monocytes 0.4 thou/uL (0.11-0.59); #Neutrophils 2.3 thou/uL (1.40-6.50); %Basophils 1.5 % (0.0-1.0); %Lymphocytes 32.5 % (21.0-51.0); %Monocytes 9.2 % (0.0-10.0); Mean Corpuscular HGB CONC 31.8 g/dL (32.0-36.0); Mean Corpuscular Hemoglobin 38.3 pg (27.0-31.0); Mean Platelet Volume 8.4 fL (7.4-10.4); Platelet Count 83 thou/uL (130-400); RBC Distribution Width 16.7 % (11.5-14.5); Red Blood Cell (RBC) Count 2.61 mill/uL (4.20-5.40); White Blood Cell (WBC) Count 4.2 thou/uL (4.8-10.8)
[2020-03-14 10:03] LABS: Anion Gap 8 mmol/L (10-20); BUN (Urea Nitrogen) 12 mg/dL (9.8-20.1); Calc. Creatinine Clearance 74 mL/min (70-130); Calcium 7.7 mg/dL (7.8-10.44); Carbon Dioxide 25 mmol/L (23-31); Chloride 109 mmol/L (98-107); Estimated GFR-MDRD Greater than 90; Glucose 97 mg/dL (80-115); Potassium 3.7 mmol/L (3.5-5.1); Sodium 138 mmol/L (136-145)
[2020-03-14] MEDS ORDERED: Fentanyl 100 MCG/2 ML VIAL ONE (10:05)
[2020-03-14] MEDS ORDERED: Lidocaine 1% (PF) 30 ML VIAL ONE (10:05)
[2020-03-14] MEDS ORDERED: Bupivacaine/Epinephrine 0.25% 30 ML VIAL ONE (10:05)
[2020-03-14] MEDS ORDERED: PROPOFOL 40 ML ONE (10:06)
[2020-03-14] MEDS ORDERED: PHENYLEPHRINE-NS 100 MCG/ML 10 ML SYRINGE ONE (10:41)
--- NOTE | 2020-03-14 13:15 | RAD ---
PORTABLE CHEST 1 VIEW: Date: 03/14/2020 Time: 1136 hours HISTORY: Postop MediPort placement. COMPARISON: 02/05/2020. FINDINGS: There has been interval placement of a right-sided Port-A-Cath with tip in the projection of the SVC. The right upper extremity PICC line remains in place. The heart size is normal. The aorta is tortuou s. Bilateral pleural effusions, right larger than left, are again seen, with adjacent infiltrates/ate lectatic changes. No pneumothoraces are identified. POS: GT
--- NOTE | 2020-03-15 13:57 | OP ---
DATE OF PROCEDURE: 03/14/2020 PREOPERATIVE DIAGNOSIS: Metastatic breast cancer. POSTOPERATIVE DIAGNOSIS: Metastatic breast cancer. PROCEDURE PERFORMED: Placement of right subclavian low-profile power compatible MediPort. ANESTHESIA: Total intravenous anesthesia with local using 1% plain lidocaine and 0.25% Marcaine with epinephrine. INDICATIONS FOR PROCEDURE: The patient is a 64-year-old white female. She has a history of breast cancer, initially treated 4 years ago. She had had a right subclavian MediPort at that time, which was subsequently removed. She has unfortunately developed metastatic breast cancer for which she requires additional chemotherapy and another MediPort placement was requested. DESCRIPTION OF OPERATION: Informed consent was obtained. The patient was taken to the operating room where total intravenous anesthesia was obtained with the patient in supine position. Right periclavicular area was prepped with ChloraPrep and draped in sterile fashion. Local anesthetic was infiltrated and a large-gauge needle was passed under the clavicle in the subclavian vein. Guidewire was passed through the needle and fluoroscopically confirmed to enter the superior vena cava. Additional local anesthetic was infiltrated and transverse incision was created based on needle insertion site. A subcutaneous pocket was dissected inferiorly. Introducer dilator was passed over the guidewire under fluoroscopic guidance. The guidewire and dilator were removed, and the catheter was passed through the introducer. The tip of the catheter was positioned at the atriocaval junction and the catheter was trimmed to the appropriate length and secured to the locking hub of the MediPort. The port was then placed in the subcutaneous pocket where it was secured to the pectoral fascia with 2 interrupted sutures of 3-0 Prolene. The incision was then closed in layers with 3-0 and 4-0 Monocryl. Additional local anesthetic was infiltrated. The port was cannulated with a Vasquez needle and it aspirated blood freely and was flushed with heparinized saline. Dermabond was placed externally on the skin incision. There were no complications. Blood loss was negligible. The patient tolerated the procedure well and was taken to recovery room in stable condition. FINDINGS: I placed a low-profile port secondary to her very thin body habitus. At her request, I placed the port in the right subclavian location as her previous port had been in. This was done through the same incision that her prior port was placed through. There were no complications. Blood loss was negligible. Fluoroscopy was used throughout the procedure. Danie ID: [id number]
== END 2020-03-14 11:59 | disposition home or self-care (01) ==
LOC: SDC 08:04
PROVIDERS: ATTEND Specialist
PROC: 02HV33Z Insertion of Infusion Device into Superior Vena Cava, Percutaneous Approach (ICD-10-PCS; principal; 2020-03-14)
DX: C79.51 Secondary malignant neoplasm of bone (principal); Z79.899 Other long term (current) drug therapy; Z91.018 Allergy to other foods; Z85.3 Personal history of malignant neoplasm of breast
CPT/HCPCS: 36415; 71045; 80048; 85025; C1788; J0690; J1642; J1885; J2001; J2704; J3010

== ENCOUNTER 2020-05-30 16:30 | Inpatient (IN) | payer OTHER ==
[2020-05-30 16:52] VITALS: BMI 15.9
[2020-05-30] MEDS ORDERED: HYDROcodone/Acetaminophen 5/325 mg Tablet PO PRN (19:28)
[2020-05-30] MEDS ORDERED: Calcium Carbonate 500 MG ChewTAB PO PRN (19:28)
--- NOTE | 2020-05-30 19:33 | PDOC.HHP ---
Hospitalist HPI - History of Present Illness dyspnea History of Present Illness: Case of an 64y/o female with a pmhx of metastatic breast CA, stage 4 with metastasis currently on chemotherapy last dose on 05/25/2020 who comes to hospital transfer from for CT evaluation. Apparently patient was on her usual state of health until 2 weeks ago when she started with progressive sob. she has a chronic R sided pleural effusion with a drain that usually drain about 800ml/day and she has noted its not working properly. patient states that since 3 weeks ago she noted that a decrease in output, and some days intermittent not draining any liquid at all. she called her oncologist who recommended to comes to hospital for evaluation. she initially went to , but Ct surgeon does not work there for which she was transfer to this institution for further care. patient denies any fever chills cough does refer some chronic diarrhea which is secondary to her chemo tx Hospitalist ROS - Review of Systems All other systems reviewed; all pertinent +/- noted in HPI/Subj Hospitalist History - Past Surgical History Past Surgical History: reports: Mastectomy (l), Tonsillectomy - Family History Family History: reports: no pertinent history - Social History Smoking Status: Former smoker Alcohol: reports: None Drugs: reports: none Living Situation: With Family - Exam General Appearance: ill appearing Eye: PERRL, anicteric sclera ENT: normocephalic atraumatic, no oropharyngeal lesions Neck: supple, symmetric, no JVD Heart: RRR, no murmur, no gallops Respiratory: CTAB, no wheezes, no rales Gastrointestinal: soft, non-tender, non-distended Extremities: no cyanosis, no clubbing, no edema Skin: normal turgor, no lesions, no rashes Neurological: cranial nerve grossly intact, normal sensation to touch, no weakness Musculoskeletal: normal tone, generalized weakness Psychiatric: normal affect, normal behavior, A&O x 3 Hospitalist H&P A/P - Problem (1) Metastatic breast cancer Code(s): C50.919 - MALIGNANT NEOPLASM OF UNSP SITE OF UNSPECIFIED FEMALE BREAST Status: Chronic (2) Pleural effusion Code(s): J90 - PLEURAL EFFUSION, NOT ELSEWHERE CLASSIFIED Status: Acute - Plan Plan: Case of an 64y/o female with the stated pmhx who presents with malfunctioning pleural cath and worsening pleural effusion pleural effusion - hx of on r chronic effusion with pleurx cath - cathether seems to be malfunctioming - Cv consulted for cath evaluation - s/p thoracenthesis f/u results - thoracenthesis was from L side, she has never had issues on that side metastatic breast CA - oncology consult
[2020-05-30] MEDS: Sodium Chloride 0.9% 500 ML IV SCH (21:15)
[2020-05-30] MEDS ORDERED: Sodium Chloride 0.9% 500 ML IVPB SCH (22:00)
[2020-05-31] MEDS: Enoxaparin Sodium 40 MG/0.4 ML SYRINGE SC SCH ×2 (09:55→09:58)
--- NOTE | 2020-05-31 11:30 | CON ---
DATE OF CONSULTATION: 05/31/2020 REQUESTING PHYSICIAN: Dr. Adan. CHIEF COMPLAINT: Shortness of breath. HISTORY OF PRESENT ILLNESS: The patient is a 64-year-old woman with metastatic breast cancer. In January of this year, she underwent placement of a PleurX catheter on the right side to deal with a malignant pleural effusion. She had been draining a L or so every other day for quite some time. However, recently drainage from the catheter has dramatically decreased and she has become short of breath. Compared to an x-ray from about a month ago, she has redevelopment of a large loculated pleural effusion. CT scanning demonstrates that the catheter is passing through what appears to represent a fluid collection at the base, suggesting that the catheter itself is now occluded. PAST MEDICAL HISTORY: Her past medical history is otherwise noncontributory. PAST SURGICAL HISTORY: She has undergone previous mastectomy. SOCIAL HISTORY: She used to smoke, but no longer does. PHYSICAL EXAMINATION: GENERAL: She is a thin woman in no distress. Height 5 feet 2 inches. Weight is 87 pounds. LUNGS: She has diminished breath sounds on the right side. HEART: Regular rate and rhythm. ABDOMEN: Scaphoid. She has a PleurX catheter in place on the right side. LABORATORY DATA: Her x-rays are as above. Her white count is 6.2, hemoglobin 11.0, and platelets 89,000. Potassium was 3.0, BUN was 9, creatinine 0.60. IMPRESSION AND RECOMMENDATIONS: Included PleurX catheter. It is obviously now not functioning. I will plan on thoracoscopy to examine the pleural space to see if it is feasible to do a conventional pleurodesis or simply replace the nonfunctional PleurX catheter. Job ID: [id number]
[2020-05-31 11:36] LABS: Hemoglobin 9.4 g/dL (12.0-16.0); MDiff Complete? YES; Macrocytosis MODERATE=16-30 cells (100X) (0-5/hpf); Mean Corpuscular HGB CONC 32.7 g/dL (32.0-36.0); Mean Platelet Volume 8.7 fL (7.4-10.4); Platelet Count 97 thou/uL (130-400); Platelet Morphology Comment Appears Decreased; Polychromasia SLIGHT = 2-3 cells (100X) (0-2/hpf); Red Blood Cell (RBC) Count 2.55 mill/uL (4.20-5.40); White Blood Cell (WBC) Count 5.9 thou/uL (4.8-10.8)
[2020-05-31 11:44] LABS: ALT (SGPT) 28 U/L (8-55); AST (SGOT) 24 U/L (5-34); Albumin 2.1 g/dL (3.4-4.8); Alkaline Phosphatase 76 U/L (40-110); Anion Gap 12 mmol/L (10-20); BUN (Urea Nitrogen) 10 mg/dL (9.8-20.1); Bilirubin, Total 0.5 mg/dL (0.2-1.2); Calc. Creatinine Clearance 66 mL/min (70-130); Calcium 7.3 mg/dL (7.8-10.44); Carbon Dioxide 26 mmol/L (23-31); Chloride 101 mmol/L (98-107); Globulin 2.5 g/dL (2.4-3.5); Glucose 127 mg/dL (80-115); Magnesium 1.5 mg/dL (1.6-2.6); Protein, Total 4.6 g/dL (6.0-8.3); Sodium 136 mmol/L (136-145)
[2020-05-31] MEDS ORDERED: Morphine 2 MG/ML VIAL SLOW IVP PRN (14:00)
--- NOTE | 2020-05-31 14:02 | PDOC.HOSPP ---
- Subjective Encounter Date: 05/31/20 Encounter Time: 11:00 Subjective: sob is better has CT guided thoracentesis on the left side yesterday her right pleuryx cath is not draining much - Objective Vital Signs & Weight: Vital Signs (12 hours) Temp Pulse Resp BP Pulse Ox 05/31/20 12:05 98.5 F 114 H 20 96/57 L 96 05/31/20 10:55 89 L 05/31/20 07:56 98.3 F 115 H 20 97/59 L 97 05/31/20 06:25 105 H 98 05/31/20 05:15 105 H 98 05/31/20 04:00 98.6 F 115 H 16 101/76 99 Weight Weight 87 lb I&O: 05/30/20 05/31/20 06/01/20 06:59 06:59 06:59 Intake Total 2535 Balance 2535 Result Diagrams: 05/31/20 11:01 05/31/20 11:01 Hospitalist ROS - Medication Medications: Active Medications Generic Name Dose Route Start Last Admin Trade Name Freq PRN Reason Stop Dose Admin Enoxaparin Sodium 40 mg 05/31/20 09:00 05/31/20 09:58 Enoxaparin Sodium 40 Mg/0.4 Ml Syringe SC Not Given 0900 JENNIFER - Exam General Appearance: awake alert, ill appearing Eye: PERRL, anicteric sclera ENT: no oropharyngeal lesions, dry oral mucosa Neck: supple, no JVD Heart: RRR, no murmur Respiratory: no wheezes Respiratory - other findings: decreased air entry right hemithorax Gastrointestinal: soft, non-tender, non-distended, normal bowel sounds Extremities: no cyanosis, 1+ LE edema Neurological: cranial nerve grossly intact, no focal deficits Psychiatric: normal affect, A&O x 3 Hosp A/P (1) Acute respiratory failure with hypoxia Code(s): J96.01 - ACUTE RESPIRATORY FAILURE WITH HYPOXIA Status: Acute (2) Pleural effusion Code(s): J90 - PLEURAL EFFUSION, NOT ELSEWHERE CLASSIFIED Status: Acute (3) Metastatic breast cancer Code(s): C50.919 - MALIGNANT NEOPLASM OF UNSP SITE OF UNSPECIFIED FEMALE BREAST Status: Chronic (4) Moderate protein-calorie malnutrition Code(s): E44.0 - MODERATE PROTEIN-CALORIE MALNUTRITION Status: Chronic (5) Pancytopenia due to chemotherapy Code(s): D61.810 - ANTINEOPLASTIC CHEMOTHERAPY INDUCED PANCYTOPENIA Status: Chronic - Plan had left CT guided thoracentesis 05/30 for thoracoscopy and procedures in am for right loculated effusion with possible revision of pleuryx cath/pleurodesis discussed code status with her, she does not want to be resuscitated, POA is oral diet, mobilize as tolerated will need home O2 for dc plan, has sob on minimal exertion which is limiting her activity and quality of life given stage 4 breast ca and b/l pleural effusions
--- NOTE | 2020-05-31 15:12 | CON ---
DATE OF CONSULTATION: REASON FOR CONSULT: Breast cancer. HISTORY OF PRESENT ILLNESS: Ms. Gimenez is a very pleasant 64-year-old female with metastatic breast cancer. She has a right pleural effusion with PleurX in place. She has been draining about 400 mL daily. Over the last several days, her output has decreased. She has gotten progressively short of breath. She presented to the [place] [facility] on Friday. She had a CT of the chest, which showed bilateral pleural effusions. She underwent thoracentesis on the left with 1 L of fluid removal. The PleurX cath was positioned appropriately on the right, but it was loculated right effusion. She was transferred to this facility and seen by Dr. Phillips. The patient is on oral chemotherapy with Piqray. She has been struggling with this medication since April. She has been weak and fatigued and had elevated blood sugars. 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 The patient is feeling better since thoracentesis. She denies any chest pain. No abdominal pain. No diarrhea. Her appetite is improving. She is saturating well with oxygen. PAST MEDICAL HISTORY: 1. Metastatic breast cancer. 2. Right pleural effusion with PleurX cath placement. 3. History of pancytopenia secondary to bone marrow involvement from breast cancer. PAST SURGICAL HISTORY: 1. Mastectomy. 2. PleurX cath placement. ALLERGIES: NO KNOWN DRUG ALLERGIES. HOME MEDICATIONS: 1. Lasix. 2. Stool softener. 3. Megestrol. 4. Piqray. 5. Protonix. FAMILY HISTORY: Noncontributory. SOCIAL HISTORY: , lives with her spouse. No alcohol, tobacco, or illicit drug use. REVIEW OF SYSTEMS: 12-point review of systems is negative except for noted in HPI. PHYSICAL EXAMINATION: VITAL SIGNS: Temperature 98.5, pulse is 114, respiratory rate 20, blood pressure is 96/57, she is 96% on 2 L. GENERAL: This is a frail female, in no acute distress. HEENT: Normocephalic, atraumatic. Pupils are equal and reactive to light. CV: Regular rate and rhythm. She is tachycardic. LUNGS: Her lungs are diminished throughout. She has a PleurX cath on the right. ABDOMEN: Soft and nontender. Bowel sounds are positive. EXTREMITIES: No clubbing or cyanosis. SKIN: No rash. HEMATOLOGIC: No petechiae or purpura. NEUROLOGIC: Nonfocal. PERTINENT LABORATORY DATA AND X-RAYS: Current WBCs are 5.9, hemoglobin 9.4, hematocrit 28.8, platelet count is 97,000, 72% neutrophils, 16% lymphs. Sodium 136, potassium 3, chloride 101, CO2 is 26, BUN is 10, creatinine is 0.54, lactic acid is 1.3, calcium 7.3, magnesium 1.5, bilirubin 0.5, AST is 24, ALT is 28, alkaline phosphatase is 76. Troponin is negative. Serum total protein 4.6, albumin 2.1, globulin 2.5. COVID negative. Influenza negative. Radiology per HPI. ASSESSMENT: 1. Metastatic breast cancer with malignant pleural effusion. 2. Loculated right pleural effusion with clogged PleurX cath. DISCUSSION: Dr. Phillips was seen the patient. He is planning a thoracoscopy tomorrow to examine pleural space to determine if he can perform interventional pleurodesis or replace the PleurX cath. The patient stopped her Piqray oral chemo on May 26. She states her diarrhea has improved and she has felt better since that time. We will continue to hold Piqray until she sees Dr. Calvillo next week. We will follow along with her hospitalization. Thank you for the consult. Job ID: [id number] [facility]
[2020-06-01] MEDS: Enoxaparin Sodium 40 MG/0.4 ML SYRINGE SC SCH (07:44)
[2020-06-01] MEDS ORDERED: Phenylephrine 10 MG/ML VIAL ONE (09:46)
[2020-06-01] MEDS ORDERED: Fentanyl 250 MCG/5 ML VIAL ONE (09:46)
[2020-06-01] MEDS ORDERED: Midazolam HCl 2 mg/2 ml Vial ONE (09:58)
[2020-06-01] MEDS ORDERED: Ketamine 50 MG/ML (10ML VIAL) ONE (09:58)
[2020-06-01] MEDS ORDERED: SUGAMMADEX SODIUM 200 MG/2 ML VIAL ONE (10:17)
[2020-06-01] MEDS ORDERED: Fentanyl 100 MCG/2 ML VIAL ONE ×2 (10:21→12:41)
[2020-06-01] MEDS ORDERED: Talc 30 GM AEROSOL CAN ONE ×2 (10:36→10:38)
[2020-06-01] MEDS ORDERED: Ondansetron HCl/PF 4 MG/2 ML Vial IVP PRN (11:18)
[2020-06-01] MEDS ORDERED: Promethazine HCl 25 MG/ML VIAL SLOW IVP PRN (11:18)
[2020-06-01] MEDS ORDERED: HYDROmorphone 2 MG/ML VIAL SLOW IVP PRN (11:18)
[2020-06-01] MEDS ORDERED: EPINEPHrine 1 MG/ML AMP ONE (11:44)
[2020-06-01] MEDS ORDERED: Bupivacaine PF 0.5% 30 ML VIAL ONE (11:44)
[2020-06-01] MEDS ORDERED: Ondansetron PF 4 MG/2 ML Vial ONE ×2 (12:11→14:14)
[2020-06-01] MEDS ORDERED: PROPOFOL 200 MG/20 ML VIAL ONE (12:11)
[2020-06-01] MEDS ORDERED: Lidocaine 1% PF 5 ML VIAL ONE (12:11)
[2020-06-01] MEDS ORDERED: Dexamethasone 20 MG/5 ML VIAL ONE (12:11)
[2020-06-01] MEDS ORDERED: Rocuronium Bromide 10 MG/ML (10ML VIAL) ONE (12:11)
[2020-06-01] MEDS ORDERED: PHENYLEPHRINE-NS 100 MCG/ML 10 ML SYRINGE ONE (12:11)
[2020-06-01] MEDS ORDERED: Albumin 5% 250 ML ONE (12:26)
[2020-06-01] MEDS ORDERED: Albumin 5% 500 ML ONE (12:26)
[2020-06-01] MEDS ORDERED: Ondansetron PF 4 MG/2 ML Vial IVP PRN (12:58)
[2020-06-01] MEDS ORDERED: HYDROcodone/Acetaminophen 5/325 mg Tablet PO PRN ×2 (12:58)
--- NOTE | 2020-06-01 13:50 | OP ---
DATE OF PROCEDURE: 06/01/2020 PROCEDURES PERFORMED: Removal of right PleurX catheter, right thoracoscopic mechanical and talc pleurodesis, multiple intercostal rib blocks. PREOPERATIVE DIAGNOSIS: Malignant right pleural effusion with nonfunctional PleurX catheter. POSTOPERATIVE DIAGNOSIS: Malignant right pleural effusion with nonfunctional PleurX catheter. ANESTHESIA: General endotracheal anesthesia. INDICATIONS: The patient is a 64-year-old woman with metastatic breast cancer who had a PleurX catheter placed to address malignant right pleural effusion about 3 months ago. Over the last several days, she has noticed that the catheter has not been draining very well and she has become short of breath. X-ray show accumulation of a large effusion in spite of the catheter coursing through it at the base. FINDINGS: About a liter and half of serous fluid with modest amount of coagulum. There was no obvious tumor implants seen in the chest and there was no obviously trapped lung. DESCRIPTION OF PROCEDURE: After informed consent was obtained, the patient was taken to the operating room, placed in supine position on the operating table. After the induction of general anesthesia and confirmation of placement of her double-lumen endotracheal tube, she was turned in the left lateral decubitus position. Her right chest was prepped and draped in sterile fashion. An incision was made at about the posterior axillary line, 2 or 3 fingerbreadths below the tip of the scapula. The incision was carried down to the muscle with the electrocautery and then blunt dissection was used to enter the pleural space. A scant amount of pleural fluid could be aspirated. Double action ring clamps were placed to facilitate breaking up loculations and small amount of additional fluid could then be aspirated. A thoracoscope port and scope were inserted and after having bluntly taken down some of the adhesions, it was possible to identify a free space on the chest wall anteriorly near the costal margin that could be used for a second port site and ultimately for chest tube exit site. This was located one or two interspaces below the exit site of the PleurX catheter. Blunt dissection was used to develop a subcutaneous tract posteriorly and superiorly and enter the pleural space from that incision and then instruments were used to take down remaining adhesions and the Yankauer sucker was used to aspirate pleural fluid. Long ring clamps were used to debride coagulum that was adherent to the chest wall and to extract it from the chest cavity. The patient has very small body habitus. I made for rather awkward attempt at elevating pleura to strip it away using ring clamps or thoracoscopic instruments. A Bovie scratch pad was folded and sewn onto the end of long ring clamps and that achieved a better abrasion of the parietal pleura. 8 g of talc was then aerosolized into the pleural space and a 28-Mauritanian chest tube was positioned posteroapically. The lung was reinflated. The scope and port were removed. The chest tube was secured to the skin with suture. 0.5% Marcaine with epinephrine was used to perform intercostal rib blocks, 3 interspaces below and 3 above the port site. Additional Marcaine was infiltrated into the wound themselves. The port site was closed with 2-0 Vicryl for the muscle and subcutaneous layers and then a 4-0 Vicryl subcuticular suture and Steri-Strips for the skin. A 15 blade scalpel was used to freshen the site where the PleurX catheter had been withdrawn after bluntly dissecting the cuff free. The wound was irrigated and then closed in layers of subcutaneous and subcuticular Vicryl. Steri-Strips and dressings were applied. A chest tube was connected to close suction drainage. The patient was awakened and extubated in the operating room and taken to the recovery area in stable condition. Job ID: [id number]
--- NOTE | 2020-06-01 14:06 | RAD ---
RADIOGRAPH CHEST 1 VIEW: Date: 06/01/20 Time: 12:54 p.m. HISTORY: 64-year-old female status post thoracotomy. COMPARISON: 05/29/20 FINDINGS: There is a new right sided chest tube entering the rib cage at the right lateral base, and ascending with distal tip at the apex. The large right pleural effusion has been drained, except for a very small residual amount at the bas e. There has been expansion of the atelectatic right lower lobe. There is still haziness at the right mi d and lower lung zones. There is a small right apical pneumothorax, with estimated volume of approxim ately 10%. No midline shift of the mediastinum or heart. No cardiomegaly. The moderate sized contralateral left pleural effusion had been successfully drained on the CT thorac entesis of 05/30/20, resulting in only a small left pleural effusion at that time. However, on the current chest radiograph, the left pleural effusion appears only slightly smaller in volume compared to 05/29/20 chest radiograph, with opacification and partial opacification of the low er half to two-thirds of the left lung. No left sided pneumothorax. The right subclavian implantable vascular access port remains at the lower portion of the SVC. The previously demonstrated chest tube at the right base has been removed. There are nonacute, mildly displaced bilateral posterior rib fracture deformities. IMPRESSION: 1. Interval replacement of the previously demonstrated right basilar chest tube with new one esau pily the right apex. 2. Interval drainage of most of the volume of the large loculated right pleural effusion. 3. Moderate sized left pleural effusion remains, with significant partial opacification of the l eft lung. MAYO [] POS: [facility]
--- NOTE | 2020-06-01 15:00 | PDOC.MOPN ---
Interval History: seen in RR, no complaints. - Vital Signs Vital Signs: Vital Signs (12 hours) Temp Pulse Resp BP Pulse Ox 06/01/20 07:37 98 06/01/20 07:36 99.0 F 107 H 16 93/59 L 98 06/01/20 05:10 96 06/01/20 03:40 98.7 F 112 H 20 99/65 96 Weight Admit Weight 87 lb Weight 87 lb - Physical Exam General: Alert Lungs: Other Cardiovascular: Regular rate Abdomen: Normal bowel sounds Neurological: Normal speech - Labs Result Diagrams: 05/31/20 11:01 05/31/20 11:01 Status: lab reviewed by me A/P - Problem (1) Acute respiratory failure with hypoxia Current Visit: Yes Code(s): J96.01 - ACUTE RESPIRATORY FAILURE WITH HYPOXIA Status: Acute (2) Breast cancer Current Visit: No Status: Chronic - Plan Plan: 1. CT in place 2. continue supportive care
[2020-06-01] MEDS: Sodium Chloride 0.9% 500 ML IV SCH (18:22)
[2020-06-01] MEDS: Acetaminophen 325 MG TAB PO PRN (18:24)
[2020-06-01] MEDS ORDERED: Sodium Chloride 0.9% 500 ML IVPB SCH (18:30)
[2020-06-01] MEDS ORDERED: Sodium Chloride 0.9% 1,000 ML IV SCH (20:30)
[2020-06-01] MEDS ORDERED: Sodium Chloride 0.9% 500 ML IV SCH (20:30)
[2020-06-01] MEDS: Sodium Chloride 0.9% 1,000 ML IV SCH (21:02)
[2020-06-02] MEDS ORDERED: Sodium Chloride 0.9% 500 ML IV SCH (06:30)
--- NOTE | 2020-06-02 09:35 | RAD ---
EXAM: Chest one view: HISTORY: Status post thoracotomy COMPARISON: 06/01/2020 FINDINGS: Rotation to the left. Right Port-A-Cath and right chest tubes in place. Persistent, possibly slightly enlarging right-sided pneumothorax, particularly in the inferior lateral aspect of the right chest. Minimally progressive subcutaneous emphysema. Minimal progressive increased density in the right lower lobe dalton dence for some developing atelectasis. Stable pleural and parenchymal opacity changes in the right chest. Heart size: Within normal limits. IMPRESSION: Minimally increasing small right-sided pneumothorax with some minimal progressive atelectasis of the right lower chest. Continued short-term follow-up.
[2020-06-02] MEDS: Enoxaparin Sodium 40 MG/0.4 ML SYRINGE SC SCH (09:50)
[2020-06-02 10:17] LABS: #Lymphocytes 0.9 thou/uL (1.20-3.40); #Monocytes 0.5 thou/uL (0.11-0.59); %Basophils 0.1 % (0.0-1.0); %Lymphocytes 12.1 % (21.0-51.0); %Monocytes 7.2 % (0.0-10.0); %Neutrophils 80.6 % (42.0-75.0); Hemoglobin 6.1 g/dL (12.0-16.0); Mean Corpuscular HGB CONC 33.2 g/dL (32.0-36.0); Mean Corpuscular Hemoglobin 37.3 pg (27.0-31.0); RBC Distribution Width 14.1 % (11.5-14.5); Red Blood Cell (RBC) Count 1.63 mill/uL (4.20-5.40); White Blood Cell (WBC) Count 7.4 thou/uL (4.8-10.8)
[2020-06-02 10:31] LABS: Anion Gap 11 mmol/L (10-20); BUN (Urea Nitrogen) 11 mg/dL (9.8-20.1); Calc. Creatinine Clearance 74 mL/min (70-130); Carbon Dioxide 26 mmol/L (23-31); Chloride 101 mmol/L (98-107); Glucose 113 mg/dL (80-115); Potassium 3.4 mmol/L (3.5-5.1); Sodium 135 mmol/L (136-145)
[2020-06-02 10:39] LABS: Anisocytosis SLIGHT = 6-15 cells (100X) (0-5/hpf); MDiff Complete? YES; Macrocytosis SLIGHT = 6-15 cells (100X) (0-5/hpf); Mean Platelet Volume 8.7 fL (7.4-10.4); Platelet Count 101 thou/uL (130-400); Platelet Morphology Comment Appears Decreased; Poikilocytosis SLIGHT = 6-15 cells (100X) (0-5/hpf)
--- NOTE | 2020-06-02 14:26 | PDOC.HOSPP ---
- Subjective Encounter Date: 06/02/20 Encounter Time: 10:15 Subjective: no sob, feels better no bleeding per rectum - Objective Vital Signs & Weight: Vital Signs (12 hours) Temp Pulse Resp BP Pulse Ox 06/02/20 12:05 98.1 F 102 H 16 98/62 99 06/02/20 08:09 97.5 F L 59 L 16 91/59 L 100 06/02/20 04:55 97.3 F L 92 16 93/65 95 06/02/20 03:10 99 Weight Admit Weight 87 lb Weight 87 lb I&O: 06/01/20 06/02/20 06/03/20 06:59 06:59 06:59 Intake Total 2850 Output Total 1000 Balance 1850 Result Diagrams: 06/02/20 09:30 06/02/20 09:30 Hospitalist ROS - Medication Medications: Active Medications Generic Name Dose Route Start Last Admin Trade Name Freq PRN Reason Stop Dose Admin Acetaminophen 650 mg 05/30/20 19:28 06/01/20 18:24 Acetaminophen 325 Mg Tab PO 650 mg Q4H PRN Administration Headache/Fever/Mild Pain (1-3) Enoxaparin Sodium 40 mg 05/31/20 09:00 06/02/20 09:50 Enoxaparin Sodium 40 Mg/0.4 Ml Syringe SC Not Given 0900 [facility] Sodium Chloride 1,000 mls @ 50 mls/hr 06/01/20 20:30 06/01/20 21:02 Normal Saline 0.9% IV 1,000 mls .Q20H JENNIFER Administration Pantoprazole Sodium 40 mg 06/01/20 09:00 06/02/20 09:50 Pantoprazole 40 Mg Tab PO 40 mg DAILY JENNIFER Administration - Exam General Appearance: awake alert, ill appearing Eye: anicteric sclera ENT: no oropharyngeal lesions, moist mucosa Neck: supple, no JVD Heart: RRR, no murmur Respiratory: no wheezes, no rales, rhonchi Respiratory - other findings: chest tube+ Gastrointestinal: soft, non-tender, non-distended, normal bowel sounds Extremities: no cyanosis, 1+ LE edema Neurological: cranial nerve grossly intact, no focal deficits Psychiatric: normal affect, A&O x 3 Hosp A/P (1) Acute respiratory failure with hypoxia Code(s): J96.01 - ACUTE RESPIRATORY FAILURE WITH HYPOXIA Status: Acute (2) Pleural effusion Code(s): J90 - PLEURAL EFFUSION, NOT ELSEWHERE CLASSIFIED Status: Acute (3) Metastatic breast cancer Code(s): C50.919 - MALIGNANT NEOPLASM OF UNSP SITE OF UNSPECIFIED FEMALE BREAST Status: Chronic (4) Moderate protein-calorie malnutrition Code(s): E44.0 - MODERATE PROTEIN-CALORIE MALNUTRITION Status: Chronic (5) Pancytopenia due to chemotherapy Code(s): D61.810 - ANTINEOPLASTIC CHEMOTHERAPY INDUCED PANCYTOPENIA Status: Chronic - Plan s/p right thoracoscopy with talc pleurodesis, has chest tube with minimal pneumothorax had left CT guided thoracentesis 05/30 may need pleuryx cath on left side discussed code status with her, she does not want to be resuscitated, POA is oral diet, mobilize as tolerated will need home O2 for dc plan, has sob on minimal exertion which is limiting her activity and quality of life given stage 4 breast ca and b/l pleural effusions
[2020-06-02] MEDS: Sodium Chloride 0.9% 1,000 ML IV SCH (18:31)
[2020-06-02] MEDS: Acetaminophen 325 MG TAB PO PRN (18:33)
[2020-06-03 04:54] LABS: #Lymphocytes 0.9 thou/uL (1.20-3.40); #Monocytes 0.7 thou/uL (0.11-0.59); #Neutrophils 6.5 thou/uL (1.40-6.50); %Basophils 0.1 % (0.0-1.0); %Eosinophils 0.1 % (0.0-10.0); %Lymphocytes 10.7 % (21.0-51.0); %Monocytes 8.2 % (0.0-10.0); %Neutrophils 80.9 % (42.0-75.0); Hemoglobin 7.3 g/dL (12.0-16.0); Mean Corpuscular HGB CONC 34.3 g/dL (32.0-36.0); Mean Corpuscular Hemoglobin 35.1 pg (27.0-31.0); Mean Platelet Volume 8.7 fL (7.4-10.4); Platelet Count 93 thou/uL (130-400); RBC Distribution Width 17.3 % (11.5-14.5); Red Blood Cell (RBC) Count 2.09 mill/uL (4.20-5.40); White Blood Cell (WBC) Count 8.1 thou/uL (4.8-10.8)
[2020-06-03 05:05] LABS: Anion Gap 11 mmol/L (10-20); BUN (Urea Nitrogen) 10 mg/dL (9.8-20.1); Calc. Creatinine Clearance 72 mL/min (70-130); Calcium 6.9 mg/dL (7.8-10.44); Carbon Dioxide 25 mmol/L (23-31); Chloride 104 mmol/L (98-107); Glucose 99 mg/dL (80-115); Potassium 3.1 mmol/L (3.5-5.1); Sodium 137 mmol/L (136-145)
--- NOTE | 2020-06-03 09:08 | RAD ---
Chest one view HISTORY: Chest surgery. Follow-up. COMPARISON: 06/02/2020. FINDINGS: Cardiac silhouette left margin remains partially obscured by left pleural fluid and basilar atelectasis. Not significantly changed from the prior study. Mediastinum is midline with aortic calcification. Right thoracostomy tube and right implanted port re main in place. Incomplete expansion of the right lower lobe with small right basilar pneumothorax is unchanged from the prior study. No evidence of apical pneumothorax. Small amount of right lower neck soft tissue gas visible. IMPRESSION : Stable postoperative appearance of the chest.
[2020-06-03] MEDS: Enoxaparin Sodium 40 MG/0.4 ML SYRINGE SC SCH (10:41)
[2020-06-03] MEDS ORDERED: Magnesium 2 GM/50 ML 2 GM in Premix Bag 1 BAG IVPB SCH (14:45)
[2020-06-03] MEDS ORDERED: Potassium Chloride 20 MEQ TAB PO SCH (14:45)
--- NOTE | 2020-06-03 14:45 | PDOC.HOSPP ---
- Subjective Subjective: Assuming care: Patient is a pleasant 64 years old female who has metastatic breast cancer, underwent thoracoscopy with talc pleurodesis on 06/01/2020 of the right side d/t recurrent malignant pleural effusion, patient tolerated the procedure well. Patient had a small pneumothorax, had a chest tube placed. No new complaints. Pain is well controlled - Objective Vital Signs & Weight: Vital Signs (12 hours) Temp Pulse Resp BP Pulse Ox 06/03/20 12:01 97.5 F L 96 12 92/65 100 06/03/20 07:59 97.2 F L 87 12 100/70 99 06/03/20 07:55 99 06/03/20 03:58 97.6 F 97 18 92/84 97 Weight Admit Weight 87 lb Weight 87 lb I&O: 06/02/20 06/03/20 06/04/20 06:59 06:59 06:59 Intake Total 2850 2300 Output Total 1000 1000 300 Balance 1850 1300 -300 Result Diagrams: 06/03/20 04:05 06/03/20 04:05 Radiology Reviewed by me: Yes EKG Reviewed by me: Yes Hospitalist ROS - Medication Medications: Active Medications Generic Name Dose Route Start Last Admin Trade Name Freq PRN Reason Stop Dose Admin Acetaminophen 650 mg 05/30/20 19:28 06/02/20 18:33 Acetaminophen 325 Mg Tab PO 650 mg Q4H PRN Administration Headache/Fever/Mild Pain (1-3) Enoxaparin Sodium 40 mg 05/31/20 09:00 06/03/20 10:41 Enoxaparin Sodium 40 Mg/0.4 Ml Syringe SC Not Given 0900 JENNIFER Sodium Chloride 1,000 mls @ 50 mls/hr 06/01/20 20:30 06/02/20 18:31 Normal Saline 0.9% IV Not Given .Q20H JENNIFER Pantoprazole Sodium 40 mg 06/01/20 09:00 06/03/20 09:24 Pantoprazole 40 Mg Tab PO 40 mg DAILY JENNIFER Administration Sodium Chloride 10 ml 06/02/20 09:00 06/03/20 10:41 Flush - Normal Saline 10 Ml Syringe IVF Not Given Q12HR JENNIFER - Exam General Appearance: NAD Eye: PERRL ENT: normocephalic atraumatic Neck: supple Heart: RRR Respiratory: CTAB, rhonchi Respiratory - other findings: right side chest tube in place Gastrointestinal: soft Extremities: no cyanosis Skin: normal turgor Neurological: cranial nerve grossly intact Musculoskeletal: normal tone Psychiatric: normal affect Hosp A/P - Plan Patient is an unfortunate 64 years old female with metastatic breast cancer complicated with recurrent pleural effusions, on chemotherapy, she was transferred from [place] due to recurrent pleural effusion and malfunctioning Pleurx catheter. Acute hypoxic respiratory failure d/t recurrent pleural effusion --s/p CT guided Lt thoracocentesis 05/30 --s/p removal of right pleurX catheter, thoracoscopy with talc pleurodesis 06/01 --wean O2 as tolerated Malignant recurrent pleural effusion --as above. rpt CXR stable. Left pleural effusion noted. Small right basilar pneumothorax --right chest tube in place, mgt as per CTS Metastatic breast cancer --oncology is following Acute on chronic anemia --s/p 1U PRBC. follow CBC Pancytopenia due to chemotherapy --s/p 1U PRBC. Follow CBC Protein calorie malnutrition, moderate, POA --supplemental diet Electrolyte abnormalities --Replace mag/K. Repeat labs in a.m.
[2020-06-03] MEDS: Sodium Chloride 0.9% 1,000 ML IV SCH (17:22)
[2020-06-04 04:30] LABS: #Lymphocytes 1.2 thou/uL (1.20-3.40); #Monocytes 0.7 thou/uL (0.11-0.59); #Neutrophils 5.3 thou/uL (1.40-6.50); %Eosinophils 0.7 % (0.0-10.0); %Monocytes 9.5 % (0.0-10.0); %Neutrophils 73.9 % (42.0-75.0); Mean Corpuscular HGB CONC 33.9 g/dL (32.0-36.0); Mean Corpuscular Hemoglobin 35.1 pg (27.0-31.0); Mean Platelet Volume 8.6 fL (7.4-10.4); Platelet Count 96 thou/uL (130-400); RBC Distribution Width 17.2 % (11.5-14.5); Red Blood Cell (RBC) Count 2.27 mill/uL (4.20-5.40); White Blood Cell (WBC) Count 7.2 thou/uL (4.8-10.8)
[2020-06-04 05:08] LABS: Anion Gap 10 mmol/L (10-20); BUN (Urea Nitrogen) 9 mg/dL (9.8-20.1); Calc. Creatinine Clearance 80 mL/min (70-130); Calcium 7.1 mg/dL (7.8-10.44); Carbon Dioxide 25 mmol/L (23-31); Chloride 106 mmol/L (98-107); Glucose 72 mg/dL (80-115); Magnesium 2.1 mg/dL (1.6-2.6); Potassium 3.6 mmol/L (3.5-5.1); Sodium 137 mmol/L (136-145)
[2020-06-04] MEDS: Enoxaparin Sodium 40 MG/0.4 ML SYRINGE SC SCH (08:54)
[2020-06-04] MEDS: Sodium Chloride 0.9% 1,000 ML IV SCH ×2 (08:58→14:45)
--- NOTE | 2020-06-04 09:28 | RAD ---
Chest one view HISTORY: Chest surgery. Follow-up. COMPARISON: 06/03/2020. FINDINGS: Cardiac silhouette left margin remains partially obscured by left pleural fluid and basilar atelectasis. Mediastinum is midline with aortic calcification and a right implanted port. Right thoracostomy tube remains in place. Small right basilar pneumothorax unchanged in degree. No evidence of apical pneumothorax. Minimal right neck gas again noted. IMPRESSION : Stable postoperative appearance of the chest.
--- NOTE | 2020-06-04 15:02 | PDOC.HOSPP ---
- Subjective Subjective: Examined at bedside. No acute events overnight. Patient still has a right- sided chest tube in place. No evidence of air leak. Repeated chest x-ray appears to be stable. Cardiothoracic surgery is following. - Objective Vital Signs & Weight: Vital Signs (12 hours) Temp Pulse Resp BP Pulse Ox 06/04/20 12:00 98.3 F 76 20 122/85 98 06/04/20 08:00 98.1 F 103 H 12 108/75 98 06/04/20 03:46 97.7 F 98 18 106/72 99 Weight Admit Weight 87 lb Weight 87 lb I&O: 06/03/20 06/04/20 06/05/20 06:59 06:59 06:59 Intake Total 2300 2000 Output Total 1000 850 Balance 1300 1150 Result Diagrams: 06/04/20 03:40 06/04/20 03:40 Radiology Reviewed by me: Yes EKG Reviewed by me: Yes Hospitalist ROS - Medication Medications: Active Medications Generic Name Dose Route Start Last Admin Trade Name Freq PRN Reason Stop Dose Admin Acetaminophen 650 mg 05/30/20 19:28 06/02/20 18:33 Acetaminophen 325 Mg Tab PO 650 mg Q4H PRN Administration Headache/Fever/Mild Pain (1-3) Enoxaparin Sodium 40 mg 05/31/20 09:00 06/04/20 08:54 Enoxaparin Sodium 40 Mg/0.4 Ml Syringe SC Not Given 0900 JENNIFER Sodium Chloride 1,000 mls @ 50 mls/hr 06/01/20 20:30 06/04/20 14:45 Normal Saline 0.9% IV 1,000 mls .Q20H JENNIFER Administration Pantoprazole Sodium 40 mg 06/01/20 09:00 06/04/20 08:58 Pantoprazole 40 Mg Tab PO 40 mg DAILY JENNIFER Administration Sodium Chloride 10 ml 06/02/20 09:00 06/04/20 08:54 Flush - Normal Saline 10 Ml Syringe IVF Not Given Q12HR JENNIFER - Exam General Appearance: NAD Eye: PERRL ENT: normocephalic atraumatic Neck: supple Heart: RRR Respiratory: CTAB Gastrointestinal: soft Extremities: no cyanosis Skin: normal turgor Hosp A/P - Plan Patient is an unfortunate 64 years old female with metastatic breast cancer complicated with recurrent pleural effusions, on chemotherapy, she was transferred from [place] due to recurrent pleural effusion and malfunctioning Pleurx catheter. Acute hypoxic respiratory failure d/t recurrent pleural effusion --s/p CT guided Lt thoracocentesis 05/30. --s/p removal of right pleurX catheter, thoracoscopy with talc pleurodesis 06/01 --wean O2 as tolerated Malignant recurrent pleural effusion --as above. rpt CXR stable. Left pleural effusion noted. Small right basilar pneumothorax --right chest tube in place, mgt as per CTS Metastatic breast cancer --oncology is following Acute on chronic anemia --s/p 1U PRBC. follow CBC. Hb stable. Pancytopenia due to chemotherapy --s/p 1U PRBC. Follow CBC Protein calorie malnutrition, moderate, POA --supplemental diets Electrolyte abnormalities --Replace mag/K. corrected.
[2020-06-04] MEDS: Acetaminophen 325 MG TAB PO PRN (17:49)
[2020-06-05] MEDS: Sodium Chloride 0.9% 1,000 ML IV SCH (06:49)
[2020-06-05 07:09] LABS: Hemoglobin 7.9 g/dL (12.0-16.0); Mean Corpuscular Hemoglobin 34.6 pg (27.0-31.0); Mean Platelet Volume 8.7 fL (7.4-10.4); Platelet Count 108 thou/uL (130-400); RBC Distribution Width 17.1 % (11.5-14.5); Red Blood Cell (RBC) Count 2.27 mill/uL (4.20-5.40)
[2020-06-05 07:12] LABS: Anion Gap 9 mmol/L (10-20); BUN (Urea Nitrogen) 7 mg/dL (9.8-20.1); Calc. Creatinine Clearance 82 mL/min (70-130); Carbon Dioxide 26 mmol/L (23-31); Chloride 107 mmol/L (98-107); Glucose 67 mg/dL (80-115); Potassium 3.7 mmol/L (3.5-5.1); Sodium 138 mmol/L (136-145)
[2020-06-05 07:28] LABS: #Eosinphils 0.1 thou/uL (0.0-0.7); #Lymphocytes 1.1 thou/uL (1.20-3.40); #Monocytes 0.5 thou/uL (0.11-0.59); #Neutrophils 4.3 thou/uL (1.40-6.50); %Basophils 0.3 % (0.0-1.0); %Eosinophils 1.2 % (0.0-10.0); %Lymphocytes 18.7 % (21.0-51.0); %Monocytes 7.6 % (0.0-10.0); %Neutrophils 72.2 % (42.0-75.0); Anisocytosis MODERATE=16-30 cells (100X) (0-5/hpf); MDiff Complete? YES; Macrocytosis SLIGHT = 6-15 cells (100X) (0-5/hpf)
[2020-06-05] MEDS: Enoxaparin Sodium 40 MG/0.4 ML SYRINGE SC SCH (08:55)
--- NOTE | 2020-06-05 11:04 | RAD ---
CHEST 1 VIEW: Date: 06/05/2020 HISTORY: Thoracotomy. COMPARISON: Radiograph prior day. FINDINGS: The right thoracostomy tube is in similar location with tip in right lung apex. Small right lateral p neumothorax is slightly improving. Moderate left layering pleural effusion. Heart size is similar. Po rt catheter tip in similar location. No acute osseous abnormality. IMPRESSION: Slight interval size decrease of the right basilar pneumothorax. POS: [facility]
--- NOTE | 2020-06-05 14:42 | PDOC.HOSPP ---
- Subjective Subjective: Patient was seen examined at bedside. She complained of back pain. Repeat chest x-ray today shows slight decrease up right basilar pneumothorax. Chest tube in place. No evidence of radiopaque. Cardiothoracic surgery is following. No fever. - Objective Vital Signs & Weight: Vital Signs (12 hours) Temp Pulse Resp BP Pulse Ox 06/05/20 11:52 98.7 F 110 H 20 119/82 100 06/05/20 08:00 98.1 F 105 H 20 122/81 100 06/05/20 03:27 97.8 F 99 18 110/74 98 Weight Admit Weight 87 lb Weight 87 lb I&O: 06/04/20 06/05/20 06/06/20 06:59 06:59 06:59 Intake Total 2000 800 Output Total 850 490 Balance 1150 310 Result Diagrams: 06/05/20 06:40 06/05/20 06:40 Radiology Reviewed by me: Yes EKG Reviewed by me: Yes Hospitalist ROS - Medication Medications: Active Medications Generic Name Dose Route Start Last Admin Trade Name Freq PRN Reason Stop Dose Admin Acetaminophen 650 mg 05/30/20 19:28 06/04/20 17:49 Acetaminophen 325 Mg Tab PO 650 mg Q4H PRN Administration Headache/Fever/Mild Pain (1-3) Enoxaparin Sodium 40 mg 05/31/20 09:00 06/05/20 08:55 Enoxaparin Sodium 40 Mg/0.4 Ml Syringe SC 40 mg 0900 JENNIFER Administration Pantoprazole Sodium 40 mg 06/01/20 09:00 06/05/20 08:55 Pantoprazole 40 Mg Tab PO 40 mg DAILY JENNIFER Administration Sodium Chloride 10 ml 06/02/20 09:00 06/05/20 08:59 Flush - Normal Saline 10 Ml Syringe IVF Not Given Q12HR JENNIFER - Exam General Appearance: NAD Eye: PERRL ENT: normocephalic atraumatic Neck: supple Heart: RRR, no murmur Respiratory: CTAB Gastrointestinal: soft Extremities: no cyanosis Skin: normal turgor Neurological: cranial nerve grossly intact Musculoskeletal: normal tone, normal strength Hosp A/P - Plan Patient is an unfortunate 64 years old female with metastatic breast cancer complicated with recurrent pleural effusions, on chemotherapy, she was transferred from [place] due to recurrent pleural effusion and malfunctioning Pleurx catheter. Acute hypoxic respiratory failure d/t recurrent pleural effusion --s/p CT guided Lt thoracocentesis 05/30. --s/p removal of right pleurX catheter, thoracoscopy with talc pleurodesis 06/01 --wean O2 as tolerated --PT eval Malignant recurrent pleural effusion --as above. rpt CXR stable. Left pleural effusion noted. Small right basilar pneumothorax --right chest tube in place, mgt as per CTS --rpt CXR stable. Pain controlled Metastatic breast cancer --oncology is following Acute on chronic anemia --s/p 1U PRBC. follow CBC. Hb stable. Pancytopenia due to chemotherapy --s/p 1U PRBC. Follow CBC Protein calorie malnutrition, moderate, POA --supplemental diets Electrolyte abnormalities --Replace mag/K. corrected.
--- NOTE | 2020-06-05 15:32 | PDOC.MOPN ---
Interval History: sitting in chair today, respirations more labored but O2 sat ok - Vital Signs Vital Signs: Vital Signs (12 hours) Temp Pulse Resp BP Pulse Ox 06/05/20 11:52 98.7 F 110 H 20 119/82 100 06/05/20 08:00 98.1 F 105 H 20 122/81 100 Weight Admit Weight 87 lb Weight 87 lb - Physical Exam General: Alert, Oriented x3, No acute distress HEENT: Atraumatic Lungs: Other (right chest tube) Cardiovascular: Regular rate Abdomen: Normal bowel sounds Neurological: Normal speech Psych/Mental Status: Mental status NL - Labs Result Diagrams: 06/05/20 06:40 06/05/20 06:40 Lab results: Laboratory Results - last 24 hr 06/05/20 06:40: WBC 6.0, RBC 2.27 L, Hgb 7.9 L, Hct 23.8 L, MCV 105.0 H, MCH 34.6 H, MCHC 33.0, RDW 17.1 H, Plt Count 108 L, MPV 8.7, Neutrophils % 72.2, Neutrophils % (Manual) Not Reportable, Lymphocytes % 18.7 L, Monocytes % 7.6, Eosinophils % 1.2, Basophils % 0.3, Neutrophils # 4.3, Lymphocytes # 1.1 L, Monocytes # 0.5, Eosinophils # 0.1, Basophils # 0.0, Anisocytosis MODERATE=16-30 cells H, Macrocytosis SLIGHT = 6-15 cells 06/05/20 06:40: Sodium 138, Potassium 3.7, Chloride 107, Carbon Dioxide 26, Anion Gap 9 L, BUN 7 L, Creatinine 0.43 L, Estimated GFR (MDRD) Greater than 90, Glucose 67 L, Calcium 7.0 L Status: lab reviewed by me A/P - Problem (1) Acute respiratory failure with hypoxia Current Visit: Yes Code(s): J96.01 - ACUTE RESPIRATORY FAILURE WITH HYPOXIA Status: Acute (2) Breast cancer Current Visit: No Status: Chronic - Plan Plan: 1. continue to hold piqray, faslodex 2. CT management per CV 3. encourage po intake 4. monitor CBC, counts have been stable post blood transfusion
[2020-06-05] MEDS: Acetaminophen 325 MG TAB PO PRN (16:02)
[2020-06-05] MEDS: Lidocaine 5% Patch TD SCH (16:55)
[2020-06-06] MEDS: Lidocaine Patch Removal 1 EACH TOP SCH (01:30)
--- NOTE | 2020-06-06 09:38 | RAD ---
CHEST 1 VIEW: Date: HISTORY: Status post thoracotomy. COMPARISON: 06/05/2020. FINDINGS: Right Port-A-Cath in place. Right chest tube in place. Increased markings in the right lung. Persiste nt moderate size left pleural effusion. IMPRESSION: Persistent left pleural effusion. Right Port-A-Cath and right chest tubes in place. Continue short-te rm follow-up. No significant new process. POS: RRE
[2020-06-06] MEDS: Enoxaparin Sodium 40 MG/0.4 ML SYRINGE SC SCH (09:46)
[2020-06-06] MEDS ORDERED: Potassium Chloride 20 MEQ TAB PO SCH (11:15)
[2020-06-06 11:54] LABS: ALT (SGPT) 46 U/L (8-55); AST (SGOT) 35 U/L (5-34); Albumin 1.9 g/dL (3.4-4.8); Alkaline Phosphatase 115 U/L (40-110); Anion Gap 8 mmol/L (10-20); BUN (Urea Nitrogen) 9 mg/dL (9.8-20.1); Bilirubin, Total 0.4 mg/dL (0.2-1.2); Calc. Creatinine Clearance 84 mL/min (70-130); Calcium 7.3 mg/dL (7.8-10.44); Carbon Dioxide 27 mmol/L (23-31); Chloride 104 mmol/L (98-107); Glucose 83 mg/dL (80-115); Potassium 3.8 mmol/L (3.5-5.1); Protein, Total 3.9 g/dL (6.0-8.3); Sodium 135 mmol/L (136-145)
[2020-06-06] MEDS: Albumin 25% 25 GM/100 ML BOT IVPB SCH ×2 (12:22→17:47)
[2020-06-06] MEDS: Lidocaine 5% Patch TD SCH (12:23)
--- NOTE | 2020-06-06 16:05 | PDOC.HOSPP ---
- Subjective Subjective: c/o generalized swelling. pt is not eating much. Protein is low, appears to be third spacing. denies of sob - Objective Vital Signs & Weight: Vital Signs (12 hours) Temp Pulse Resp BP Pulse Ox 06/06/20 11:53 98.3 F 108 H 12 96/67 100 06/06/20 09:45 96 06/06/20 08:08 98.2 F 116 H 12 111/73 96 06/06/20 04:18 98.3 F 113 H 18 119/81 97 Weight Admit Weight 87 lb Weight 87 lb I&O: 06/05/20 06/06/20 06/07/20 06:59 06:59 06:59 Intake Total 800 1610 Output Total 490 660 Balance 310 950 Result Diagrams: 06/05/20 06:40 06/06/20 11:15 Hospitalist ROS - Medication Medications: Active Medications Generic Name Dose Route Start Last Admin Trade Name Freq PRN Reason Stop Dose Admin Acetaminophen 650 mg 05/30/20 19:28 06/05/20 16:02 Acetaminophen 325 Mg Tab PO 650 mg Q4H PRN Administration Headache/Fever/Mild Pain (1-3) Albumin Human 25 gm 06/06/20 12:00 06/06/20 12:22 Albumin 25% 25 Gm/100 Ml Bot IVPB 06/07/20 12:01 25 gm Q6HR JENNIFER Administration Enoxaparin Sodium 40 mg 05/31/20 09:00 06/06/20 09:46 Enoxaparin Sodium 40 Mg/0.4 Ml Syringe SC 40 mg 0900 JENNIFER Administration Lidocaine 2 patch 06/05/20 13:00 06/06/20 12:23 Lidocaine 5% Patch TD 2 patch 1300 JENNIFER Administration Miscellaneous Medication 1 each 06/06/20 01:00 06/06/20 01:30 Lidocaine Patch Removal 1 Each TOP 1 each 0100 JENNIFER Administration Pantoprazole Sodium 40 mg 06/01/20 09:00 06/06/20 09:45 Pantoprazole 40 Mg Tab PO 40 mg DAILY JENNIFER Administration Sodium Chloride 10 ml 06/02/20 09:00 06/06/20 09:45 Flush - Normal Saline 10 Ml Syringe IVF 10 ml Q12HR JENNIFER Administration - Exam General Appearance: NAD Eye: PERRL ENT: normocephalic atraumatic Neck: supple Heart: RRR Respiratory - other findings: right side chest tube in place Gastrointestinal: soft Extremities: no cyanosis Skin: normal turgor Neurological: cranial nerve grossly intact Musculoskeletal: normal tone Hosp A/P - Plan Patient is an unfortunate 64 years old female with metastatic breast cancer complicated with recurrent pleural effusions, on chemotherapy, she was transferred from [place] due to recurrent pleural effusion and malfunctioning Pleurx catheter. Acute hypoxic respiratory failure d/t recurrent pleural effusion --s/p CT guided Lt thoracocentesis 05/30. --s/p removal of right pleurX catheter, thoracoscopy with talc pleurodesis 06/01 --wean O2 as tolerated --PT eval Malignant recurrent pleural effusion --as above. rpt CXR stable. Left pleural effusion noted. Small right basilar pneumothorax --right chest tube in place, mgt as per CTS --rpt CXR stable. Pain controlled Generalized edema - third spacing from hypoalbuminemia --start diuresis with IV Bumex, and IV albumin to help augment diuresis Metastatic breast cancer --oncology is following Acute on chronic anemia --s/p 1U PRBC. follow CBC. Hb stable. Pancytopenia due to chemotherapy --s/p 1U PRBC. Follow CBC Protein calorie malnutrition, moderate, POA --supplemental diets Electrolyte abnormalities --Replace mag/K. corrected.
[2020-06-06] MEDS ORDERED: Bumetanide 1 MG/4 ML VIAL IVP SCH (18:00)
[2020-06-07] MEDS: Albumin 25% 25 GM/100 ML BOT IVPB SCH ×3 (00:20→12:41)
[2020-06-07] MEDS: Lidocaine Patch Removal 1 EACH TOP SCH (01:23)
[2020-06-07 05:32] LABS: #Eosinphils 0.1 thou/uL (0.0-0.7); #Lymphocytes 1.2 thou/uL (1.20-3.40); #Monocytes 0.7 thou/uL (0.11-0.59); #Neutrophils 3.8 thou/uL (1.40-6.50); %Basophils 0.6 % (0.0-1.0); %Eosinophils 1.6 % (0.0-10.0); %Monocytes 11.1 % (0.0-10.0); %Neutrophils 65.7 % (42.0-75.0); Hemoglobin 6.9 g/dL (12.0-16.0); Mean Corpuscular HGB CONC 33.2 g/dL (32.0-36.0); Mean Corpuscular Hemoglobin 35.5 pg (27.0-31.0); Mean Platelet Volume 8.4 fL (7.4-10.4); Platelet Count 111 thou/uL (130-400); RBC Distribution Width 17.5 % (11.5-14.5); Red Blood Cell (RBC) Count 1.93 mill/uL (4.20-5.40); White Blood Cell (WBC) Count 5.8 thou/uL (4.8-10.8)
[2020-06-07 05:44] LABS: ALT (SGPT) 27 U/L (8-55); AST (SGOT) 22 U/L (5-34); Albumin 2.9 g/dL (3.4-4.8); Alkaline Phosphatase 83 U/L (40-110); Anion Gap 10 mmol/L (10-20); BUN (Urea Nitrogen) 6 mg/dL (9.8-20.1); Bilirubin, Total 0.6 mg/dL (0.2-1.2); Calc. Creatinine Clearance 77 mL/min (70-130); Calcium 7.8 mg/dL (7.8-10.44); Carbon Dioxide 30 mmol/L (23-31); Chloride 104 mmol/L (98-107); Globulin 1.6 g/dL (2.4-3.5); Glucose 75 mg/dL (80-115); Potassium 3.3 mmol/L (3.5-5.1); Protein, Total 4.5 g/dL (6.0-8.3); Sodium 141 mmol/L (136-145)
--- NOTE | 2020-06-07 07:56 | RAD ---
Chest one view HISTORY: Chest surgery. Follow-up. COMPARISON: 06/06/2020. FINDINGS: Cardiac silhouette remains predominantly obscured by left pleural fluid and bibasilar atele ctasis similar in appearance to prior exam. Pulmonary vasculature slightly engorged. Mediastinum is midline. Lines and tubes unchanged in position. Atelectasis at the right base again demonstrated. No significant residual pneumothorax. Bilateral rib fractures, mostly old. IMPRESSION : Stable postoperative appearance of the chest, with large amount of left pleural fluid.
[2020-06-07] MEDS: Enoxaparin Sodium 40 MG/0.4 ML SYRINGE SC SCH (08:14)
[2020-06-07] MEDS: Bumetanide 1 MG/4 ML VIAL IVP SCH (10:28)
--- NOTE | 2020-06-07 15:24 | PDOC.MOPN ---
Interval History: feels about the same. Weak, denies SOB - Vital Signs Vital Signs: Vital Signs (12 hours) Temp Pulse Resp BP Pulse Ox 06/07/20 15:10 98.2 F 113 H 16 103/66 98 06/07/20 11:00 98.2 F 113/73 06/07/20 08:00 98 06/07/20 07:22 98.2 F 123 H 16 113/73 98 06/07/20 03:38 98.2 F 118 H 16 107/72 98 Weight Admit Weight 87 lb Weight 87 lb - Physical Exam General: Alert, Oriented x3, No acute distress HEENT: Atraumatic, PERRLA, EOMI, Mucous membr. moist/pink Lungs: Other Cardiovascular: Regular rate Abdomen: Normal bowel sounds Neurological: Normal speech Psych/Mental Status: Mental status NL - Labs Result Diagrams: 06/07/20 05:00 06/07/20 05:00 Lab results: Laboratory Results - last 24 hr 06/07/20 10:06: Blood Type A POSITIVE, Antibody Screen NEGATIVE, Crossmatch See Detail 06/07/20 05:00: Sodium 141, Potassium 3.3 L, Chloride 104, Carbon Dioxide 30, Anion Gap 10, BUN 6 L, Creatinine 0.46 L, Estimated GFR (MDRD) Greater than 90, Glucose 75 L, Calcium 7.8, Total Bilirubin 0.6, AST 22, ALT 27, Alkaline Phosphatase 83, Serum Total Protein 4.5 L, Albumin 2.9 L, Globulin 1.6 L, Albumin/Globulin Ratio 1.8 06/07/20 05:00: WBC 5.8, RBC 1.93 L, Hgb 6.9 L, Hct 20.7 L, MCV 107.0 H, MCH 35.5 H, MCHC 33.2, RDW 17.5 H, Plt Count 111 L, MPV 8.4, Neutrophils % 65.7, Lymphocytes % 21.0, Monocytes % 11.1 H, Eosinophils % 1.6, Basophils % 0.6, Neutrophils # 3.8, Lymphocytes # 1.2, Monocytes # 0.7 H, Eosinophils # 0.1, Basophils # 0.0 A/P - Problem (1) Acute respiratory failure with hypoxia Current Visit: Yes Code(s): J96.01 - ACUTE RESPIRATORY FAILURE WITH HYPOXIA Status: Acute (2) Breast cancer Current Visit: No Status: Chronic - Plan Plan: Hold chemo recheck CA 27.29 Chest tube management per CV Blood today for hgb 6.9, noted blood in chest tube
[2020-06-07] MEDS: Lidocaine 5% Patch TD SCH (15:48)
--- NOTE | 2020-06-07 16:29 | PDOC.HOSPP ---
- Subjective Subjective: Patient was seen examined at bedside. No acute changes overnight. Her hemoglobin dropped to 6.9 today. Her swelling went down significantly with diuresis - Objective Vital Signs & Weight: Vital Signs (12 hours) Temp Pulse Resp BP Pulse Ox 06/07/20 15:10 98.2 F 113 H 16 103/66 98 06/07/20 11:00 98.2 F 113/73 06/07/20 08:00 98 06/07/20 07:22 98.2 F 123 H 16 113/73 98 Weight Admit Weight 87 lb Weight 87 lb I&O: 06/06/20 06/07/20 06/08/20 06:59 06:59 06:59 Intake Total 1610 700 0 Output Total 660 2745 Balance 950 -2045 0 Result Diagrams: 06/07/20 05:00 06/07/20 05:00 Radiology Reviewed by me: Yes EKG Reviewed by me: Yes Hospitalist ROS - Medication Medications: Active Medications Generic Name Dose Route Start Last Admin Trade Name Freq PRN Reason Stop Dose Admin Acetaminophen 650 mg 05/30/20 19:28 06/05/20 16:02 Acetaminophen 325 Mg Tab PO 650 mg Q4H PRN Administration Headache/Fever/Mild Pain (1-3) Bumetanide 1 mg 06/07/20 09:00 06/07/20 10:28 Bumetanide 1 Mg/4 Ml Vial IVP 1 mg DAILY JENNIFER Administration Enoxaparin Sodium 40 mg 05/31/20 09:00 06/07/20 08:14 Enoxaparin Sodium 40 Mg/0.4 Ml Syringe SC 40 mg 0900 JENNIFER Administration Lidocaine 2 patch 06/05/20 13:00 06/07/20 15:48 Lidocaine 5% Patch TD 2 patch 1300 JENNIFER Administration Miscellaneous Medication 1 each 06/06/20 01:00 06/07/20 01:23 Lidocaine Patch Removal 1 Each TOP 1 each 0100 JENNIFER Administration Pantoprazole Sodium 40 mg 06/01/20 09:00 06/07/20 08:14 Pantoprazole 40 Mg Tab PO 40 mg DAILY JENNIFER Administration Sodium Chloride 10 ml 06/02/20 09:00 06/07/20 10:29 Flush - Normal Saline 10 Ml Syringe IVF 10 ml Q12HR JENNIFER Administration - Exam General Appearance: NAD Eye: PERRL ENT: normocephalic atraumatic Neck: supple Heart: RRR Respiratory: rhonchi Gastrointestinal: soft Extremities: no cyanosis Skin: normal turgor Neurological: cranial nerve grossly intact Musculoskeletal: normal tone Psychiatric: normal affect, normal behavior, A&O x 3 Hosp A/P - Plan Patient is an unfortunate 64 years old female with metastatic breast cancer complicated with recurrent pleural effusions, on chemotherapy, she was transferred from [place] due to recurrent pleural effusion and malfunctioning Pleurx catheter. Acute hypoxic respiratory failure d/t recurrent pleural effusion --s/p CT guided Lt thoracocentesis 05/30. --s/p removal of right pleurX catheter, thoracoscopy with talc pleurodesis 06/01 --wean O2 as tolerated --PT eval Malignant recurrent pleural effusion --as above. rpt CXR stable. Left pleural effusion noted. Small right basilar pneumothorax --right chest tube in place, mgt as per CTS --rpt CXR stable. Pain controlled Generalized edema - third spacing from hypoalbuminemia --much improved. cont diuresis with IV Bumex, and IV albumin to help augment diuresis Metastatic breast cancer --oncology is following Acute on chronic anemia --Hb dropped to 6.9, will transfuse her another unit of PRBC Pancytopenia due to chemotherapy --s/p 1U PRBC. Follow CBC Protein calorie malnutrition, moderate, POA --supplemental diets Electrolyte abnormalities --Replace mag/K. corrected.
[2020-06-07 21:58] LABS: Hemoglobin 9.8 g/dL (12.0-16.0)
[2020-06-08] MEDS: Lidocaine Patch Removal 1 EACH TOP SCH (01:32)
[2020-06-08 05:58] LABS: #Eosinphils 0.1 thou/uL (0.0-0.7); #Lymphocytes 1.3 thou/uL (1.20-3.40); #Monocytes 0.7 thou/uL (0.11-0.59); #Neutrophils 4.7 thou/uL (1.40-6.50); %Basophils 0.4 % (0.0-1.0); %Lymphocytes 19.3 % (21.0-51.0); %Monocytes 9.6 % (0.0-10.0); %Neutrophils 69.7 % (42.0-75.0); Hemoglobin 9.2 g/dL (12.0-16.0); Mean Corpuscular HGB CONC 34.4 g/dL (32.0-36.0); Mean Platelet Volume 8.1 fL (7.4-10.4); Platelet Count 98 thou/uL (130-400); Red Blood Cell (RBC) Count 2.62 mill/uL (4.20-5.40); White Blood Cell (WBC) Count 6.7 thou/uL (4.8-10.8)
[2020-06-08 06:19] LABS: Anion Gap 8 mmol/L (10-20); BUN (Urea Nitrogen) 7 mg/dL (9.8-20.1); Calc. Creatinine Clearance 72 mL/min (70-130); Calcium 7.6 mg/dL (7.8-10.44); Carbon Dioxide 35 mmol/L (23-31); Chloride 99 mmol/L (98-107); Glucose 78 mg/dL (80-115); Potassium 3.2 mmol/L (3.5-5.1); Sodium 139 mmol/L (136-145)
--- NOTE | 2020-06-08 08:20 | RAD ---
Chest one view HISTORY: Pleurodesis. Follow-up. COMPARISON: 06/07/2020. FINDINGS: Left cardiac margin remains obscured by pleural fluid and bibasilar atelectasis. Pulmonary vasculature slightly engorged. Mediastinum midline. Right thoracostomy tube remains in place. Small amount right pleural fluid unchanged. Atelectasis at right base stable. No evidence of pneumothorax. IMPRESSION : Left pleural fluid and postoperative changes are stable.
[2020-06-08] MEDS: Enoxaparin Sodium 40 MG/0.4 ML SYRINGE SC SCH (08:40)
[2020-06-08] MEDS: Potassium Chloride 20 MEQ TAB PO SCH (08:40)
[2020-06-08] MEDS: Bumetanide 1 MG/4 ML VIAL IVP SCH (09:44)
[2020-06-08] MEDS: Lidocaine 5% Patch TD SCH (13:13)
--- NOTE | 2020-06-08 16:29 | PDOC.HOSPP ---
- Subjective Subjective: feeling much better, swelling went down significantly. neg 3.5L - Objective Vital Signs & Weight: Vital Signs (12 hours) Temp Pulse Resp BP Pulse Ox 06/08/20 13:00 16 06/08/20 11:18 98.7 F 74 16 92/63 97 06/08/20 11:00 16 06/08/20 09:00 16 06/08/20 08:00 97 06/08/20 07:09 98.9 F 106 H 16 108/72 97 Weight Admit Weight 87 lb Weight 87 lb I&O: 06/07/20 06/08/20 06/09/20 06:59 06:59 06:59 Intake Total 700 2020 Output Total 7397 1488 Balance -4838 -8061 Result Diagrams: 06/08/20 05:40 06/08/20 05:40 Hospitalist ROS - Medication Medications: Active Medications Generic Name Dose Route Start Last Admin Trade Name Freq PRN Reason Stop Dose Admin Acetaminophen 650 mg 05/30/20 19:28 06/05/20 16:02 Acetaminophen 325 Mg Tab PO 650 mg Q4H PRN Administration Headache/Fever/Mild Pain (1-3) Bumetanide 1 mg 06/07/20 09:00 06/08/20 09:44 Bumetanide 1 Mg/4 Ml Vial IVP 1 mg DAILY JENNIFER Administration Enoxaparin Sodium 40 mg 05/31/20 09:00 06/08/20 08:40 Enoxaparin Sodium 40 Mg/0.4 Ml Syringe SC 40 mg 0900 JENNIFER Administration Lidocaine 2 patch 06/05/20 13:00 06/08/20 13:13 Lidocaine 5% Patch TD 2 patch 1300 JENNIFER Administration Miscellaneous Medication 1 each 06/06/20 01:00 06/08/20 01:32 Lidocaine Patch Removal 1 Each TOP 1 each 0100 JENNIFER Administration Pantoprazole Sodium 40 mg 06/01/20 09:00 06/08/20 08:40 Pantoprazole 40 Mg Tab PO 40 mg DAILY JENNIFER Administration Potassium Chloride 20 meq 06/08/20 08:00 06/08/20 08:40 Potassium Chloride 20 Meq Tab PO 20 meq QAM-WM JENNIFER Administration Sodium Chloride 10 ml 06/02/20 09:00 06/08/20 09:45 Flush - Normal Saline 10 Ml Syringe IVF 10 ml Q12HR JENNIFER Administration - Exam General Appearance: NAD Eye: PERRL ENT: normocephalic atraumatic Neck: supple Heart: RRR Heart - other findings: right side chest tube in place Gastrointestinal: soft Extremities: no cyanosis Skin: normal turgor Hosp A/P - Plan Patient is an unfortunate 64 years old female with metastatic breast cancer complicated with recurrent pleural effusions, on chemotherapy, she was transferred from [place] due to recurrent pleural effusion and malfunctioning Pleurx catheter. Acute hypoxic respiratory failure d/t recurrent pleural effusion --s/p CT guided Lt thoracocentesis 05/30 in [facility]. --s/p removal of right pleurX catheter, thoracoscopy with talc pleurodesis 06/01 --wean O2 as tolerated --PT eval Malignant recurrent pleural effusion --as above. rpt CXR stable. Left pleural effusion noted. Cont diuresis Small right basilar pneumothorax --right chest tube in place, mgt as per CTS --rpt CXR stable. Pain controlled Generalized edema - third spacing from hypoalbuminemia --much improved. cont diuresis with IV Bumex, and IV albumin to help augment diuresis --maintain neg fluid balance Metastatic breast cancer --oncology is following Acute on chronic anemia --Hb dropped to 6.9, will transfuse her another unit of PRBC Pancytopenia due to chemotherapy --s/p 2U PRBC. Follow CBC Protein calorie malnutrition, moderate, POA --supplemental diets Electrolyte abnormalities --Replace mag/K. corrected.
[2020-06-08] MEDS: Acetaminophen 325 MG TAB PO PRN (18:46)
[2020-06-09] MEDS: Lidocaine Patch Removal 1 EACH TOP SCH (01:54)
[2020-06-09 05:54] LABS: #Eosinphils 0.1 thou/uL (0.0-0.7); #Monocytes 0.7 thou/uL (0.11-0.59); #Neutrophils 5.1 thou/uL (1.40-6.50); %Basophils 0.5 % (0.0-1.0); %Eosinophils 0.9 % (0.0-10.0); %Lymphocytes 14.9 % (21.0-51.0); %Monocytes 10.1 % (0.0-10.0); %Neutrophils 73.5 % (42.0-75.0); Hemoglobin 9.1 g/dL (12.0-16.0); Mean Corpuscular HGB CONC 32.5 g/dL (32.0-36.0); Mean Platelet Volume 8.3 fL (7.4-10.4); Platelet Count 101 thou/uL (130-400); RBC Distribution Width 16.4 % (11.5-14.5); Red Blood Cell (RBC) Count 2.66 mill/uL (4.20-5.40)
[2020-06-09 05:58] LABS: BUN (Urea Nitrogen) 16 mg/dL (9.8-20.1); Calc. Creatinine Clearance 79 mL/min (70-130); Calcium 7.7 mg/dL (7.8-10.44); Glucose 75 mg/dL (80-115); Magnesium 1.3 mg/dL (1.6-2.6)
[2020-06-09 06:07] LABS: Anion Gap 12 mmol/L (10-20); Carbon Dioxide 33 mmol/L (23-31); Chloride 97 mmol/L (98-107); Potassium 3.7 mmol/L (3.5-5.1); Sodium 138 mmol/L (136-145)
[2020-06-09] MEDS ORDERED: Magnesium Sulfate 4 GM in Sodium Chloride 0.9% 250 ML 250 ML IVPB SCH (07:30)
[2020-06-09] MEDS: Enoxaparin Sodium 40 MG/0.4 ML SYRINGE SC SCH (09:10)
[2020-06-09] MEDS: Potassium Chloride 20 MEQ TAB PO SCH (09:11)
[2020-06-09] MEDS: Bumetanide 1 MG/4 ML VIAL IVP SCH (09:11)
[2020-06-09] MEDS: Acetaminophen 325 MG TAB PO PRN (09:19)
--- NOTE | 2020-06-09 10:07 | RAD ---
PORTABLE CHEST 1 VIEW: Date: 06/09/2020 Time: 0746 hours HISTORY: Status post thoracotomy. COMPARISON: Previous day. FINDINGS/IMPRESSION: No significant interval change is seen. No definite pneumothorax is identified. POS: NESTOR
[2020-06-09] MEDS: Lidocaine 5% Patch TD SCH (12:18)
--- NOTE | 2020-06-09 14:29 | PDOC.MOPN ---
Interval History: Chest tube out. breathing well. - Vital Signs Vital Signs: Vital Signs (12 hours) Temp Pulse Resp BP Pulse Ox 06/09/20 12:00 98.2 F 122 H 18 88/60 L 98 06/09/20 07:40 98.5 F 110 H 18 92/60 98 06/09/20 04:22 98.4 F 104 H 20 97/65 98 Weight Admit Weight 87 lb Weight 87 lb - Physical Exam General: Alert, Oriented x3, No acute distress HEENT: Atraumatic, PERRLA, EOMI, Mucous membr. moist/pink Lungs: Other Cardiovascular: Regular rate Abdomen: Normal bowel sounds Extremities: No clubbing, No cyanosis, No edema, Normal pulses, No tenderness/swelling Neurological: Normal speech - Labs Result Diagrams: 06/09/20 05:00 06/09/20 05:00 Lab results: Laboratory Results - last 24 hr 06/09/20 05:00: WBC 7.0, RBC 2.66 L, Hgb 9.1 L, Hct 27.8 L, MCV 104.0 H, MCH 34.0 H, MCHC 32.5, RDW 16.4 H, Plt Count 101 L, MPV 8.3, Neutrophils % 73.5, Neutrophils % (Manual) Not Reportable, Lymphocytes % 14.9 L, Monocytes % 10.1 H, Eosinophils % 0.9, Basophils % 0.5, Neutrophils # 5.1, Lymphocytes # 1.0 L, Monocytes # 0.7 H, Eosinophils # 0.1, Basophils # 0.0 06/09/20 05:00: Sodium 138, Potassium 3.7, Chloride 97 L, Carbon Dioxide 33 H, Anion Gap 12, BUN 16, Creatinine 0.45 L, Estimated GFR (MDRD) Greater than 90, Glucose 75 L, Calcium 7.7 L, Magnesium 1.3 L Status: lab reviewed by me A/P - Problem (1) Acute respiratory failure with hypoxia Current Visit: Yes Code(s): J96.01 - ACUTE RESPIRATORY FAILURE WITH HYPOXIA Status: Acute (2) Breast cancer Current Visit: No Status: Chronic - Plan Plan: Chest tube dc'd home when ok the [facility] follow-up next week with Dr. Calvillo.
--- NOTE | 2020-06-09 15:40 | PDOC.HOSPP ---
- Subjective Subjective: She was seen examined this morning. Her chest tube in place. No evidence of air leak. Chest x-ray this morning did not show any evidence of pneumothorax. Possibly DC chest tube later this afternoon. CTS is following. Patient has been maintaining negative fluid balance for the last few days. Status is feeling much better. She had a net negative of 1.6 L overnight. She has been diuresed well with Bumex and IV albumin. Swelling went down significantly. Her hemoglobin remained stable. Her electrolytes have been corrected for magnesium. Potassium has been normalized. Renal function stable diuresis. No fever. Dyspnea much improved. - Objective Vital Signs & Weight: Vital Signs (12 hours) Temp Pulse Pulse Resp BP BP Pulse Ox 06/09/20 14:52 125 H 110/74 06/09/20 12:00 98.2 F 122 H 18 88/60 L 98 06/09/20 07:40 98.5 F 110 H 18 92/60 98 06/09/20 04:22 98.4 F 104 H 20 97/65 98 Weight Admit Weight 87 lb Weight 87 lb I&O: 06/08/20 06/09/20 06/10/20 06:59 06:59 06:59 Intake Total 2020 240 Output Total 3610 1850 Balance -1590 -1610 Result Diagrams: 06/09/20 05:00 06/09/20 05:00 Radiology Reviewed by me: Yes EKG Reviewed by me: Yes Hospitalist ROS - Medication Medications: Active Medications Generic Name Dose Route Start Last Admin Trade Name Freq PRN Reason Stop Dose Admin Acetaminophen 650 mg 05/30/20 19:28 06/09/20 09:19 Acetaminophen 325 Mg Tab PO 650 mg Q4H PRN Administration Headache/Fever/Mild Pain (1-3) Bumetanide 1 mg 06/07/20 09:00 06/09/20 09:11 Bumetanide 1 Mg/4 Ml Vial IVP 1 mg DAILY JENNIFER Administration Enoxaparin Sodium 40 mg 05/31/20 09:00 06/09/20 09:10 Enoxaparin Sodium 40 Mg/0.4 Ml Syringe SC 40 mg 0900 JENNIFER Administration Lidocaine 2 patch 06/05/20 13:00 06/09/20 12:18 Lidocaine 5% Patch TD 2 patch 1300 JENNIFER Administration Miscellaneous Medication 1 each 06/06/20 01:00 06/09/20 01:54 Lidocaine Patch Removal 1 Each TOP 1 each 0100 JENNIFER Administration Pantoprazole Sodium 40 mg 06/01/20 09:00 06/09/20 09:11 Pantoprazole 40 Mg Tab PO 40 mg DAILY JENNIFER Administration Potassium Chloride 20 meq 06/08/20 08:00 06/09/20 09:11 Potassium Chloride 20 Meq Tab PO 20 meq QAM-WM JENNIFER Administration Sodium Chloride 10 ml 06/02/20 09:00 06/09/20 09:11 Flush - Normal Saline 10 Ml Syringe IVF 10 ml Q12HR JENNIFER Administration - Exam General Appearance: NAD Eye: PERRL ENT: normocephalic atraumatic Neck: supple Heart: RRR Respiratory: CTAB Respiratory - other findings: chest tube in place to waterseal Extremities: no cyanosis Skin: normal turgor Neurological: cranial nerve grossly intact Psychiatric: normal affect, normal behavior Hosp A/P - Plan Patient is an unfortunate 64 years old female with metastatic breast cancer complicated with recurrent pleural effusions, on chemotherapy, she was t ransferred from [place] due to recurrent pleural effusion and malfunctioning Pleurx catheter. Acute hypoxic respiratory failure d/t recurrent pleural effusion --s/p CT guided Lt thoracocentesis 05/30 in [facility]. --s/p removal of right pleurX catheter, thoracoscopy with talc pleurodesis 06/01 --wean O2 as tolerated --PT eval. Probably home over the weekend when OK with CTS Malignant recurrent pleural effusion --as above. rpt CXR stable. Left pleural effusion noted. --She responded well with Bumex/Albumin, maintain neg fluid balance last few day. Small right basilar pneumothorax --right chest tube in place, mgt as per CTS --rpt CXR no evidence of PTX, chest tube probably remove soon. CTS is following. Generalized edema - third spacing from hypoalbuminemia --much improved. cont diuresis with IV Bumex, and IV albumin to help augment diuresis --maintain neg fluid balance. Will transition to oral diuretic with anticipation home over the weekend when chest tube removed. Metastatic breast cancer --oncology is following Acute on chronic anemia --Hb dropped to 6.9, will transfuse her another unit of PRBC Pancytopenia due to chemotherapy --s/p 2U PRBC. Follow CBC Protein calorie malnutrition, moderate, POA --supplemental diets Electrolyte abnormalities --Replace mag/K. corrected. Follow AM labs
[2020-06-10] MEDS: Lidocaine Patch Removal 1 EACH TOP SCH (00:17)
[2020-06-10 05:52] LABS: #Eosinphils 0.1 thou/uL (0.0-0.7); #Lymphocytes 1.3 thou/uL (1.20-3.40); #Monocytes 0.7 thou/uL (0.11-0.59); #Neutrophils 5.1 thou/uL (1.40-6.50); %Basophils 0.5 % (0.0-1.0); %Eosinophils 0.8 % (0.0-10.0); %Neutrophils 70.7 % (42.0-75.0); Hemoglobin 8.6 g/dL (12.0-16.0); Mean Corpuscular HGB CONC 32.9 g/dL (32.0-36.0); Platelet Count 103 thou/uL (130-400); RBC Distribution Width 16.3 % (11.5-14.5); Red Blood Cell (RBC) Count 2.52 mill/uL (4.20-5.40); White Blood Cell (WBC) Count 7.3 thou/uL (4.8-10.8)
[2020-06-10 06:08] LABS: Anion Gap 10 mmol/L (10-20); BUN (Urea Nitrogen) 15 mg/dL (9.8-20.1); Calc. Creatinine Clearance 80 mL/min (70-130); Calcium 7.7 mg/dL (7.8-10.44); Carbon Dioxide 34 mmol/L (23-31); Chloride 96 mmol/L (98-107); Glucose 78 mg/dL (80-115); Potassium 3.8 mmol/L (3.5-5.1); Sodium 136 mmol/L (136-145)
[2020-06-10] MEDS ORDERED: Bumetanide 1 MG TAB PO SCH (09:00)
[2020-06-10] MEDS: Enoxaparin Sodium 40 MG/0.4 ML SYRINGE SC SCH (09:16)
[2020-06-10] MEDS: Potassium Chloride 20 MEQ TAB PO SCH (09:17)
--- NOTE | 2020-06-10 09:18 | PDOC.HOSPP ---
- Subjective Encounter Date: 06/10/20 (f/u resp failure) Encounter Time: 09:16 Subjective: Pt overall improved since admission, s/p procedures on right lung and cath/chest tube removed. Notes increased appetite, continues to feel weak with movement, and short of breath with speaking or working with PT. - Objective Vital Signs & Weight: Vital Signs (12 hours) Temp Pulse Resp BP Pulse Ox 06/10/20 07:45 98.2 F 106 H 18 86/55 L 96 06/10/20 04:38 98.3 F 120 H 17 90/61 97 06/10/20 00:11 98.7 F 123 H 18 99/66 96 Weight Admit Weight 87 lb Weight 87 lb I&O: 06/09/20 06/10/20 06/11/20 06:59 06:59 06:59 Intake Total 240 1100 240 Output Total 1850 600 400 Balance -1610 500 -160 Result Diagrams: 06/10/20 05:40 06/10/20 05:40 Hospitalist ROS - Medication Medications: Active Medications Generic Name Dose Route Start Last Admin Trade Name Freq PRN Reason Stop Dose Admin Acetaminophen 650 mg 05/30/20 19:28 06/09/20 09:19 Acetaminophen 325 Mg Tab PO 650 mg Q4H PRN Administration Headache/Fever/Mild Pain (1-3) Enoxaparin Sodium 40 mg 05/31/20 09:00 06/09/20 09:10 Enoxaparin Sodium 40 Mg/0.4 Ml Syringe SC 40 mg 0900 JENNIFER Administration Lidocaine 2 patch 06/05/20 13:00 06/09/20 12:18 Lidocaine 5% Patch TD 2 patch 1300 JENNIFER Administration Miscellaneous Medication 1 each 06/06/20 01:00 06/10/20 00:17 Lidocaine Patch Removal 1 Each TOP 1 each 0100 JENNIFER Administration Pantoprazole Sodium 40 mg 06/01/20 09:00 06/09/20 09:11 Pantoprazole 40 Mg Tab PO 40 mg DAILY JENNIFER Administration Potassium Chloride 20 meq 06/08/20 08:00 06/09/20 09:11 Potassium Chloride 20 Meq Tab PO 20 meq QAM-WM JENNIFER Administration Sodium Chloride 10 ml 06/02/20 09:00 06/09/20 21:18 Flush - Normal Saline 10 Ml Syringe IVF 10 ml Q12HR JENNIFER Administration - Exam General Appearance: NAD Heart: RRR, no murmur Respiratory: no wheezes, no rales, no ronchi Respiratory - other findings: decreased breath sounds right > left Gastrointestinal: soft, non-tender, non-distended, normal bowel sounds Extremities: no cyanosis, no clubbing, no edema Psychiatric: normal affect Hosp A/P (1) Anemia Code(s): D64.9 - ANEMIA, UNSPECIFIED Status: Chronic Qualifiers: Other causes of anemia: antineoplastic chemotherapy (2) Thrombocytopenia Code(s): D69.6 - THROMBOCYTOPENIA, UNSPECIFIED Status: Chronic (3) Acute respiratory failure with hypoxia Code(s): J96.01 - ACUTE RESPIRATORY FAILURE WITH HYPOXIA Status: Chronic (4) Recurrent right pleural effusion Code(s): J90 - PLEURAL EFFUSION, NOT ELSEWHERE CLASSIFIED Status: Chronic (5) Moderate protein-calorie malnutrition Code(s): E44.0 - MODERATE PROTEIN-CALORIE MALNUTRITION Status: Chronic (6) Underweight Code(s): R63.6 - UNDERWEIGHT Status: Chronic - Plan Acute hypoxic respiratory failure d/t recurrent pleural effusion - s/p CT guided Lt thoracocentesis 05/30 in [facility]. - s/p removal of right pleurX catheter, thoracoscopy with talc pleurodesis 06/01 - Appreciate [facility] recommendations - anticipate desat study prior to discharge and arrangement of home oxygen if needed Malignant recurrent pleural effusion - as above. rpt CXR stable. Left pleural effusion noted. - She responded well with Bumex/Albumin and then oral bumex - given low bp's will d/c the bumex Small right basilar pneumothorax - s/p right chest tube in place Generalized edema - third spacing from hypoalbuminemia - much improved s/p diuresis with IV bumex and albumin, then changed to oral b umex - due to low bp's will d/c this Metastatic breast cancer - oncology is following - planned f/u in clinic Acute on chronic anemia - s/p transfusin, will monitor Protein calorie malnutrition, moderate, POA - supplements - pt tolerating well Electrolyte abnormalities - continue replacement as needed Hypotension with tachycardia - may be from over-diuresis - encourge PO intake - d/c bumetanide - pt reports HR at home in the 100-110's - check TSH in AM Pseudohypocalcemia - corrects for albumin dvt prophy - lovenox - will lower dose given pt's weight gi prophy - not needed - not on at home Code status - DNAR Anticipate home when bp's improved if tachy remains stable.
--- NOTE | 2020-06-10 10:15 | RAD ---
RADIOGRAPH CHEST 1 VIEW: DATE: 06/10/2020 TIME: 7:31 AM HISTORY: 64-year-old female status post thoracotomy, for follow-up COMPARISON: 06/09/2020 FINDINGS: Bilateral pleural effusions. Reticulonodular interstitial infiltrates on the right. Diffuse haziness of most of left lung representing posteriorly layering pleural effusion. No pneumothorax. No cardiomegaly. Right subclavian central venous implantable vascular access port remains. No significan t interval change. IMPRESSION: No interval change, including bilateral pleural effusions
[2020-06-10] MEDS: Lidocaine 5% Patch TD SCH (14:22)
[2020-06-10] MEDS: Acetaminophen 325 MG TAB PO PRN (21:19)
[2020-06-11 00:03] LABS: #Lymphocytes 1.3 thou/uL (1.20-3.40); #Monocytes 0.7 thou/uL (0.11-0.59); #Neutrophils 5.2 thou/uL (1.40-6.50); %Basophils 0.3 % (0.0-1.0); %Eosinophils 0.6 % (0.0-10.0); %Lymphocytes 17.7 % (21.0-51.0); %Neutrophils 71.5 % (42.0-75.0); Hemoglobin 8.3 g/dL (12.0-16.0); Mean Corpuscular HGB CONC 33.7 g/dL (32.0-36.0); Mean Corpuscular Hemoglobin 35.1 pg (27.0-31.0); Mean Platelet Volume 8.3 fL (7.4-10.4); Platelet Count 113 thou/uL (130-400); RBC Distribution Width 16.1 % (11.5-14.5); Red Blood Cell (RBC) Count 2.37 mill/uL (4.20-5.40); White Blood Cell (WBC) Count 7.2 thou/uL (4.8-10.8)
[2020-06-11 00:11] LABS: Lactic Acid 1.1 mmol/L (0.5-2.2)
[2020-06-11] MEDS: Lidocaine Patch Removal 1 EACH TOP SCH (06:33)
--- NOTE | 2020-06-11 07:30 | RAD ---
CHEST 1 VIEW: Date: 06/10/2020 HISTORY: Shortness of breath. COMPARISON: Earlier exam same date. FINDINGS: Heart size within normal limits. Bilateral pleural effusions, left larger than right, are again noted . Parenchymal lung changes are similar. Right-sided MediPort catheter is unchanged. No new process is identified. IMPRESSION: Stable exam. POS: BABAK
[2020-06-11] MEDS: Potassium Chloride 20 MEQ TAB PO SCH (08:46)
[2020-06-11] MEDS: Enoxaparin Sodium 30 MG/0.3 ML SYRINGE SC SCH (08:47)
[2020-06-11 09:27] LABS: Anion Gap 8 mmol/L (10-20); BUN (Urea Nitrogen) 14 mg/dL (9.8-20.1); Calc. Creatinine Clearance 80 mL/min (70-130); Carbon Dioxide 36 mmol/L (23-31); Chloride 97 mmol/L (98-107); Glucose 84 mg/dL (80-115); Magnesium 1.9 mg/dL (1.6-2.6); Phosphorus 3.8 mg/dL (2.3-4.7); Sodium 137 mmol/L (136-145)
--- NOTE | 2020-06-11 11:29 | PDOC.HOSPP ---
- Subjective Encounter Date: 06/11/20 (f/u hypotension) Encounter Time: 11:28 Subjective: Pt c/o some lightheaded when up to the commode with assistance. She denies any n/v. She reports her breathing is about the same - denies any pain. Continues to be on oxygen supplementation. - Objective Vital Signs & Weight: Vital Signs (12 hours) Temp Pulse Resp BP Pulse Ox 06/11/20 10:00 98.3 F 116 H 20 87/57 L 97 06/11/20 08:45 95 06/11/20 08:37 98.1 F 107 H 16 84/53 L 95 06/11/20 04:22 98.0 F 105 H 21 H 85/56 L 96 Weight Admit Weight 87 lb Weight 87 lb I&O: 06/10/20 06/11/20 06/12/20 06:59 06:59 06:59 Intake Total 1100 1680 Output Total 600 1200 Balance 500 480 Result Diagrams: 06/10/20 23:45 06/11/20 08:51 Hospitalist ROS - Medication Medications: Active Medications Generic Name Dose Route Start Last Admin Trade Name Freq PRN Reason Stop Dose Admin Acetaminophen 650 mg 05/30/20 19:28 06/10/20 21:19 Acetaminophen 325 Mg Tab PO 650 mg Q4H PRN Administration Headache/Fever/Mild Pain (1-3) Enoxaparin Sodium 30 mg 06/11/20 09:00 06/11/20 08:47 Enoxaparin Sodium 30 Mg/0.3 Ml Syringe SC 30 mg 0900 JENNIFER Administration Lidocaine 2 patch 06/05/20 13:00 06/10/20 14:22 Lidocaine 5% Patch TD 2 patch 1300 JENNIFER Administration Miscellaneous Medication 1 each 06/06/20 01:00 06/11/20 06:33 Lidocaine Patch Removal 1 Each TOP 1 each 0100 JENNIFER Administration Potassium Chloride 20 meq 06/08/20 08:00 06/11/20 08:46 Potassium Chloride 20 Meq Tab PO 20 meq QAM-WM JENNIFER Administration Sodium Chloride 10 ml 06/02/20 09:00 06/11/20 08:47 Flush - Normal Saline 10 Ml Syringe IVF 10 ml Q12HR JENNIFER Administration - Exam General Appearance: NAD Heart: RRR, no murmur Respiratory - other findings: decreased breath sounds right > left Gastrointestinal: soft, non-tender, non-distended, normal bowel sounds Extremities: no cyanosis, no clubbing, no edema Psychiatric: normal affect Hosp A/P (1) Anemia Code(s): D64.9 - ANEMIA, UNSPECIFIED Status: Chronic Qualifiers: Other causes of anemia: antineoplastic chemotherapy (2) Thrombocytopenia Code(s): D69.6 - THROMBOCYTOPENIA, UNSPECIFIED Status: Chronic (3) Acute respiratory failure with hypoxia Code(s): J96.01 - ACUTE RESPIRATORY FAILURE WITH HYPOXIA Status: Chronic (4) Recurrent right pleural effusion Code(s): J90 - PLEURAL EFFUSION, NOT ELSEWHERE CLASSIFIED Status: Chronic (5) Moderate protein-calorie malnutrition Code(s): E44.0 - MODERATE PROTEIN-CALORIE MALNUTRITION Status: Chronic (6) Underweight Code(s): R63.6 - UNDERWEIGHT Status: Chronic - Plan Acute hypoxic respiratory failure d/t recurrent pleural effusion - s/p CT guided Lt thoracocentesis 05/30 in [facility]. - s/p removal of right pleurX catheter, thoracoscopy with talc pleurodesis 06/01 - Appreciate [facility] recommendations - needs home oxygen - desat study completed today Malignant recurrent pleural effusion - as above. rpt CXR stable. Left pleural effusion noted. - She responded well with Bumex/Albumin and then oral bumex - low bp and edema appears resolved - d/c Small right basilar pneumothorax - resolved with chest tube that has been d/c Generalized edema - third spacing from hypoalbuminemia - much improved s/p diuresis with IV bumex and albumin, then changed to oral bumex - due to low bp's will d/c this Metastatic breast cancer - oncology is following - planned f/u in clinic Acute on chronic anemia - symptomatic with declining hemoglobin - I spoke with Dr. Calvillo about overall picture here. Pt has poor bone marrow reserve and required frequent transfusions until Jan. She recommends transfusing 1 unit of prbc and anticipate this will also improve bp. Pt can f[facility]u [facility] on Friday Protein calorie malnutrition, moderate, POA - supplements - pt tolerating well Electrolyte abnormalities - continue replacement as needed Hypotension with tachycardia - may be from over-diuresis - encourge PO intake - TSH slightly elevated - check T3/T4 Pseudohypocalcemia - corrects for albumin dvt prophy - lovenox gi prophy - not needed - not on at home Code status - DNAR Anticipate home tomorrow, with close f/u in the Cancer Clinic. Reviewed the plan of care with the patient, no questions or further needs at end of eval.
[2020-06-11 12:59] LABS: Free T4 (Free Thyroxine) 0.85 ng/dL (0.70-1.48)
[2020-06-11] MEDS: Lidocaine 5% Patch TD SCH (13:32)
[2020-06-11] MEDS: Acetaminophen 325 MG TAB PO PRN (17:32)
[2020-06-12] MEDS: Lidocaine Patch Removal 1 EACH TOP SCH (02:46)
[2020-06-12 05:41] LABS: #Eosinphils 0.1 thou/uL (0.0-0.7); #Lymphocytes 1.3 thou/uL (1.20-3.40); #Monocytes 0.6 thou/uL (0.11-0.59); %Basophils 0.3 % (0.0-1.0); %Lymphocytes 15.6 % (21.0-51.0); %Monocytes 7.6 % (0.0-10.0); %Neutrophils 75.5 % (42.0-75.0); Mean Corpuscular HGB CONC 33.6 g/dL (32.0-36.0); Mean Corpuscular Hemoglobin 33.8 pg (27.0-31.0); Mean Platelet Volume 8.2 fL (7.4-10.4); Platelet Count 119 thou/uL (130-400); RBC Distribution Width 16.4 % (11.5-14.5); Red Blood Cell (RBC) Count 3.24 mill/uL (4.20-5.40)
[2020-06-12 06:03] LABS: Anion Gap 11 mmol/L (10-20); BUN (Urea Nitrogen) 15 mg/dL (9.8-20.1); Calc. Creatinine Clearance 82 mL/min (70-130); Carbon Dioxide 32 mmol/L (23-31); Chloride 98 mmol/L (98-107); Glucose 87 mg/dL (80-115); Potassium 4.2 mmol/L (3.5-5.1); Sodium 137 mmol/L (136-145)
[2020-06-12] MEDS: Potassium Chloride 20 MEQ TAB PO SCH (08:28)
[2020-06-12] MEDS: Enoxaparin Sodium 30 MG/0.3 ML SYRINGE SC SCH (08:28)
--- NOTE | 2020-06-12 08:53 | RAD ---
CHEST 1 VIEW: INDICATION: History of thoracotomy. COMPARISON: Prior exam dated June 10, 2020. FINDINGS: Bilateral pleural parenchymal opacities suspicious for bilateral pleural effusions persist. Chronic lung changes are similar. Airspace disease of both lungs is stable. Right chest wall port is stable . No pneumothorax is evident. IMPRESSION: Stable exam. POS: BH
[2020-06-12 10:36] VITALS: BP 97/66; TEMP 98.6
--- NOTE | 2020-06-12 13:37 | DIS ---
DATE OF ADMISSION: 05/31/2020 DATE OF DISCHARGE: 06/12/2020 DISCHARGE MEDICATIONS: Reconciled at discharge. New medication: Lidocaine patch, 2 patches on for 12 hours, then remove for 12 hours and be patch free. CONSULTANTS: 1. Cardiovascular Surgery. 2. Hematology-Oncology. FINAL DIAGNOSES: 1. Recurrent pleural effusion, status post removal of the prior PleurX catheter and pleurodesis. 2. History of recurrent pleural effusions, nonmalignant. 3. Small right basilar pneumothorax, resolved. 4. Acute on chronic anemia, status post transfusion. 5. Tachycardia, chronic. 6. Acute respiratory failure secondary to chronic lung disease as well as recurrent pleural effusions. 7. Thrombocytopenia, chronic. 8. Mildly elevated TSH, needs outpatient followup. SECONDARY DIAGNOSES: 1. History of metastatic breast cancer, currently considered in remission. 2. Protein-calorie malnutrition, moderate. 3. Hypotension, chronic. 4. Underweight. 5. Hypoproteinemia. HISTORY OF PRESENT ILLNESS: Ms. Gimenez is a 64-year-old female with the above-medical problems, who presented to the [facility] with difficulty breathing. She was found to have recurrent pleural effusions, concerning for loculated as they were not draining with the PleurX catheter that was in place. Because of that, the patient was transferred to this facility for treatment. HOSPITAL COURSE: The patient was evaluated by Cardiovascular Surgery for the recurrent pleural effusions, not responding to the PleurX catheter and underwent surgery on June 01. Postoperatively, she did have a chest tube in place, which has since been removed and she has tolerated that well. She has been followed by Oncology while here, and the recurrent pleural effusions are nonmalignant. She has been transfused due to a history of poor bone marrow function, ultimately requiring 3 units of packed red blood cells. Her nutritional status has been improved through the work of the dietitians to find supplements that the patient can tolerate. In addition, the patient's appetite has improved. The patient's blood pressures were in the 80 systolic yesterday. In discussion with Dr. Calvillo, the patient's oncologist, 1 unit of packed red blood cells was ordered due to the known poor bone marrow function. She tolerated this well, her blood pressures are improved and her hemoglobin has responded dramatically. She has overall optimized and does meet criteria for discharge to home. She will follow up with Oncology tomorrow. PHYSICAL EXAMINATION: VITAL SIGNS: On day of discharge, blood pressure 97/66, pulse 112, temp 98.6, respirations 12, sat 96% on 2.5 L. GENERAL: Awake, alert, responsive, tired appearing, but not in apparent distress. LUNGS: Improved air movement throughout. No audible wheezing, rhonchi, or rales. HEART: Normal S1, S2. Tachycardic. No significant murmur. ABDOMEN: Soft with present bowel sounds. Nontender, nondistended. EXTREMITIES: No edema. [facility] FINDINGS AND TEST RESULTS: CBC today 8, 11, 32.6, 119. Chemistry today 137, 4.2, 98, 32, 15, 0.43, 87. TSH 7.09, free T4 0.85, free T3 2.38. Liver function tests on June 07, T bilirubin 0.6, AST 23, ALT 27, alkaline phosphatase 83, total protein 4.5, albumin 2.9. Chest x-ray performed today shows chronic lung changes, pleural effusions persistent. Overall stable exam. FOLLOWUP: With Dr. Calvillo tomorrow, scheduled for 10:30 a.m. in the Cancer Clinic. ACTIVITY: As tolerated. DIET: No restrictions. The patient does have information on supplements. She is currently on Juan twice a day and Jevity 1.2 twice a day and can also take Ensure Clear 3 times a day. CODE STATUS: Do not attempt resuscitation. DISCHARGE DISPOSITION: Home. Reviewed with the patient this hospitalization and the seek care precautions or return for care precautions and recommend that she return to the [facility] if there are any concerns as there are more resources available for her. There were no questions or further needs at the end of evaluation. Total time coordinating discharge is 35 minutes. The patient is being discharged with home oxygen. Currently, she is using 2.5 L by nasal cannula and this has been arranged by Case Management. Job ID: [id number]
[2020-06-12] MEDS: Lidocaine 5% Patch TD SCH (13:51)
== END 2020-06-12 14:12 | disposition home or self-care (01) | DRG 981 ==
LOC: INTOOBSV 16:30 → 3SE 16:30 → OBSVTOIN 05-31 13:59 → 3SE 05-31 18:04 → 3SW 05-31 18:04 → 3SE 06-01 07:12 → SJJU 06-01 15:30
PROVIDERS: ADMIT Family Medicine; ATTEND Family Medicine
PROC: 0W9940Z Drainage of Right Pleural Cavity with Drainage Device, Percutaneous Endoscopic Approach (ICD-10-PCS; principal; 2020-06-01)
PROC: 3E0L4GC Introduction of Other Therapeutic Substance into Pleural Cavity, Percutaneous Endoscopic Approach (ICD-10-PCS; 2020-06-01)
PROC: 0WP9X3Z Removal of Infusion Device from Right Pleural Cavity, External Approach (ICD-10-PCS; 2020-06-01)
PROC: 30233N1 Transfusion of Nonautologous Red Blood Cells into Peripheral Vein, Percutaneous Approach (ICD-10-PCS; 2020-06-02)
DX: T85.618A Breakdown (mechanical) of other specified internal prosthetic devices, implants and grafts, initial encounter (principal); J96.00 Acute respiratory failure, unspecified whether with hypoxia or hypercapnia; D61.810 Antineoplastic chemotherapy induced pancytopenia; E44.0 Moderate protein-calorie malnutrition; J91.0 Malignant pleural effusion; Z68.1 Body mass index [BMI] 19.9 or less, adult; J93.83 Other pneumothorax; Z66 Do not resuscitate; Z20.822 Contact with and (suspected) exposure to COVID-19; E77.8 Other disorders of glycoprotein metabolism; T45.1X5A Adverse effect of antineoplastic and immunosuppressive drugs, initial encounter; E11.65 Type 2 diabetes mellitus with hyperglycemia; Y83.1 Surgical operation with implant of artificial internal device as the cause of abnormal reaction of the patient, or of later complication, without mention of misadventure at the time of the procedure; R00.0 Tachycardia, unspecified; R79.89 Other specified abnormal findings of blood chemistry; C50.919 Malignant neoplasm of unspecified site of unspecified female breast; I95.9 Hypotension, unspecified; Z87.891 Personal history of nicotine dependence; Z90.10 Acquired absence of unspecified breast and nipple
CPT/HCPCS: 0240U; 32555; 36415; 36430; 71045; 71270; 80048; 80053; 82550; 83605; 83735; 84100; 84439; 84443; 84481; 84484; 85025; 86300; 86850; 86900; 86901; 87040; 93005; 94760; 96365; 96366; 96367; G0378; J0171; J0456; J0696; J1100; J1642; J1650; J1940; J2250; J2370; J2405; J2704; J3010; J3475; J3490; J7030; J7050; P9016; P9045; P9047; S0020

== ENCOUNTER 2020-07-19 02:05 | Inpatient (IN) | payer OTHER ==
[2020-07-19] MEDS ORDERED: Dextrose 50% Abboject 50 ML SYRINGE SLOW IVP PRN (21:36)
[2020-07-19] MEDS ORDERED: HumaLOG 300 UNITS/3 ML VIAL SC PRN (21:36)
[2020-07-19] MEDS ORDERED: Dextrose 5% in Water 1,000 ML IV PRN (21:36)
--- NOTE | 2020-07-19 21:40 | PDOC.HHP ---
Hospitalist GISSEL AMS, History of Present Illness: This is a 64-year-old female patient with a history of metastatic breast cancer who was transferred from [place] on account of altered mental status with new intracranial metastasis. On the last admission she had a Pleurx tube which was removed and she had pleurodesis. Her oncologist has been following her up and suggested she be transferred here for evaluation for new intracranial meds and for possible brain irradiation. Prior to arrival she has been hyperglycemic and has also been treated on Decadron and zoledronic acid for hypercalcemia which was about 14 at her initial presentation. On arrival she was generally not oriented would however mention her name when asked every now and then. Blood pressure was 143/80, pulse 113, saturation 98% on 2 L nasal cannula. Her labs from earlier this morning in [place] were reviewed 9.4, WBC 9.4, platelets 213. Chemistry showed hyperkalemia of 12.7 down from 14.1 a day before. Otherwise glucose was 166,, alkaline phosphatase 131. Allergies/Adverse Reactions: Allergy/AdvReac Type Severity Reaction Status Date / Time avocado Allergy Severe Swollen Verified 07/19/20 21:54 Lips nut - unspecified Allergy Severe Swollen Verified 07/19/20 21:54 Lips Home Medications: Medication Instructions Recorded Confirmed Type No Known 07/19/20 07/19/20 History Past History: Past medical history: Metastatic breast cancer Past surgical history: Unable to obtain Family history: Unable to obtain Social history: No history of alcohol smoking and illicit drug use. Hospitalist GISSEL ROS ROS unobtainable: due to mental status Hospitalist Exam General Appearance: ill appearing General - other findings: In bed, not oriented Eye: anicteric sclera ENT: normocephalic atraumatic Heart: RRR, no murmur, no gallops, no rubs Respiratory: CTAB, no wheezes, no rales, no ronchi Gastrointestinal: soft, non-tender, non-distended Extremities: negative: no cyanosis, no edema Neurological - other findings: Spontaneous movement of all limbs. Psychiatric - other findings: Not oriented, generally confused Hospitalist H&P A/P Plan: This is a 64-year-old female patient with a history of metastatic breast cancer transferred from [place] for further management for new brain mets. Acute encephalopathy Likely due to brain metastasis or breast CA Also has hypercalcemia which is resolving but could still contribute to altered mental status. Continue IV fluid hydration Appreciate nephrology inputpotential brain radiation in a.m. Breast cancer with brain metastasis Consult oncology in a.m. Continue Decadron. Hyperglycemia Correctional insulin Monitor glucose Hypercalcemia Calcium 12.7 down from 14.1 Received zoledronic acid Continue hydration and monitor General poor prognosis Consider palliative care consult for goals of care discussion DVT prophylaxisLovenox CODE STATUSto be discussed with
[2020-07-19] MEDS: Sodium Chloride 0.9% 1,000 ML IV SCH (22:30)
[2020-07-20 04:36] LABS: #Lymphocytes 1.2 thou/uL (1.20-3.40); #Monocytes 0.8 thou/uL (0.11-0.59); %Basophils 0.1 % (0.0-1.0); %Eosinophils 0.1 % (0.0-10.0); %Lymphocytes 8.5 % (21.0-51.0); %Monocytes 5.8 % (0.0-10.0); %Neutrophils 85.6 % (42.0-75.0); Hemoglobin 9.4 g/dL (12.0-16.0); Mean Corpuscular HGB CONC 32.1 g/dL (32.0-36.0); Mean Corpuscular Hemoglobin 35.3 pg (27.0-31.0); Platelet Count 219 thou/uL (130-400); RBC Distribution Width 17.4 % (11.5-14.5); Red Blood Cell (RBC) Count 2.65 mill/uL (4.20-5.40)
[2020-07-20 04:45] LABS: Anion Gap 11 mmol/L (10-20); BUN (Urea Nitrogen) 27 mg/dL (9.8-20.1); Calc. Creatinine Clearance 49 mL/min (70-130); Calcium 11.6 mg/dL (7.8-10.44); Carbon Dioxide 31 mmol/L (23-31); Chloride 106 mmol/L (98-107); Glucose 122 mg/dL (80-115); Potassium 3.4 mmol/L (3.5-5.1); Sodium 145 mmol/L (136-145)
[2020-07-20] MEDS: Sodium Chloride 0.9% 1,000 ML IV SCH ×3 (05:15→23:23)
[2020-07-20] MEDS ORDERED: Dexamethasone 4 mg/ml Vial SLOW IVP SCH (09:00)
[2020-07-20] MEDS: Enoxaparin Sodium 40 MG/0.4 ML SYRINGE SC SCH (09:12)
[2020-07-20] MEDS ORDERED: Magnevist 469MG/ML 20 ML VIAL ONE (11:06)
--- NOTE | 2020-07-20 14:44 | PDOC.HOSPP ---
- Subjective Encounter Date: 07/20/20 non-verbal - Objective Vital Signs & Weight: Vital Signs (12 hours) Temp Pulse Resp BP Pulse Ox 07/20/20 08:00 97.7 F 107 H 17 127/82 96 07/20/20 04:00 98.0 F 104 H 16 124/70 96 Weight Admit Weight 88 lb 3.2 oz Weight 90 lb 14.4 oz I&O: 07/19/20 07/20/20 07/21/20 06:59 06:59 06:59 Intake Total 797 Balance 797 Result Diagrams: 07/20/20 03:57 07/20/20 03:57 Additional Labs: Accuchecks 07/20/20 07/20/20 10:40 05:52 POC Glucose 85 111 H Hospitalist ROS - Medication Medications: Active Medications Generic Name Dose Route Start Last Admin Trade Name Freq PRN Reason Stop Dose Admin Enoxaparin Sodium 40 mg 07/20/20 09:00 07/20/20 09:12 Enoxaparin Sodium 40 Mg/0.4 Ml Syringe SC 40 mg 0900 JENNIFER Administration Sodium Chloride 1,000 mls @ 120 mls/hr 07/19/20 21:45 07/20/20 05:15 Normal Saline 0.9% IV 1,000 mls .[id number] JENNIFER Administration Sodium Chloride 10 ml 07/20/20 09:00 07/20/20 09:12 Flush - Normal Saline 10 Ml Syringe IVF 10 ml Q12HR JENNIFER Administration Hospitalist Exam Vitals: Vital Signs (12 hours) Temp Pulse Resp BP Pulse Ox 07/20/20 08:00 97.7 F 107 H 17 127/82 96 07/20/20 04:00 98.0 F 104 H 16 124/70 96 Weight Admit Weight 88 lb 3.2 oz Weight 90 lb 14.4 oz General - other findings: She is somnolent and encephalopathic. Mumbles. Heart: RRR, no murmur, no gallops, no rubs, normal peripheral pulses Respiratory: CTAB, no wheezes, no rales, no ronchi, normal chest expansion, no tachypnea, normal percussion Gastrointestinal: soft, non-tender, non-distended, normal bowel sounds, no palpable masses, no hepatomegaly, no splenomegaly, no bruit Extremities: no cyanosis, no clubbing, no edema Musculoskeletal: diffuse muscle atrophy Psychiatric: somnolent, lethargic Psychiatric - other findings: Appears to be hallucinating and grabbing at things not present Hosp A/P (1) Acute metabolic encephalopathy Code(s): G93.41 - METABOLIC ENCEPHALOPATHY Status: Acute (2) Metastatic breast cancer Code(s): C50.919 - MALIGNANT NEOPLASM OF UNSP SITE OF UNSPECIFIED FEMALE BREAST Status: Chronic (3) Brain metastases Code(s): C79.31 - SECONDARY MALIGNANT NEOPLASM OF BRAIN Status: Acute (4) Hypercalcemia Code(s): E83.52 - HYPERCALCEMIA Status: Acute (5) Moderate protein-calorie malnutrition Code(s): E44.0 - MODERATE PROTEIN-CALORIE MALNUTRITION Status: Chronic (6) CKD (chronic kidney disease) stage 2, GFR 60-89 ml/min Code(s): N18.2 - CHRONIC KIDNEY DISEASE, STAGE 2 (MILD) Status: Chronic (7) Anemia Code(s): D64.9 - ANEMIA, UNSPECIFIED Status: Chronic Qualifiers: Other causes of anemia: antineoplastic chemotherapy - Plan Acute metabolic encephalopathy: Likely secondary to brain metastases or severe hypercalcemia. So far her calcium has come down and her encephalopathy seems to be getting worse. Continue to treat the hypercalcemia with steroids and fluids. Brain metastases: CT scan suggest brain metastases. MRI has been obtained. Results pending. Continue with aggressive Decadron. Metastatic breast cancer with recurrence: Discussed with Dr. Calvillo. Given the evidence of metastatic disease in the hypercalcemia with the patient's encephalopathy it does not appear that there would be good interventional options. I have discussed the case with Dr. Calvillo and the patient's . Dr. Calvillo has discussed the case with Dr. Lane and the patient's . At this point the decision has been made to move forward with inpatient hospice. Process is now underway.
--- NOTE | 2020-07-20 14:47 | MRI ---
MRI BRAIN WITH AND WITHOUT IV CONTRAST: HISTORY: Breast cancer with brain mets. FINDINGS: Correlation is made with the nonenhanced CT scan of the brain dated 07/18/2020. There are multiple enhancing supra- and infratentorial brain lesions consistent with metastases. The largest of these measure 8 mm in the posteromedial aspect of the left temporal lobe and 6 mm in the left anterior cj. Several of these lesions also demonstrate adjacent vasogenic edema. No midline shift is seen. The ventricular size is appropriate and the basilar cisterns patent. No restricted d iffusion is identified. No acute infarct, hemorrhage, or abnormal extraaxial fluid collections are s een. Exam is limited due to motion artifact, particularly on post contrast images. IMPRESSION: Findings are consistent with numerous brain metastases. POS: GT
--- NOTE | 2020-07-20 15:25 | CON ---
DATE OF CONSULTATION: 07/20/2020 HISTORY OF PRESENT ILLNESS: Ms. Gimenez is a 64-year-old female with history of known metastatic breast cancer, who presented to an outside emergency room approximately 2 days ago with complaints of hallucinations and altered mental status. 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 She denies any headache. She has chronic shortness of breath, metastatic breast cancer, and pleural effusions. This was stable. She has lost some weight and her appetite has declined over the last couple of weeks. Notably as an outpatient one week prior to this admission, her tumor marker had gone up and restaging scans had been ordered. These were not done because the patient instead came into the emergency room. In the ER, CT scan of the brain showed multiple new brain metastases. Her calcium was also elevated at 14. She was stabilized and eventually transferred to our facility. Today on my exam, the patient is arousable to sternal rub, but is confused and altered, she is disoriented and does not follow commands. She does not recognize me, and I have known her for many years. PAST MEDICAL HISTORY: Known metastatic breast cancer with bone and bone marrow metastases. CURRENT MEDICATIONS: 1. Decadron 4 mg IV daily, she was given 20 mg IV Decadron in outside emergency room as well as Zometa 4 mg IV in the outside emergency room. 2. Lovenox 40 mg subcu daily. 3. Humalog lispro sliding scale. ALLERGIES: AVOCADO, NUTS. SOCIAL HISTORY: She lives in town with her , has children who are quite supportive. She denies tobacco or alcohol use . FAMILY HISTORY: Noncontributory. REVIEW OF SYSTEMS: Not obtainable secondary to the patient's confusion. PHYSICAL EXAMINATION: VITAL SIGNS: Temperature 97.7, pulse 107, respirations 17, O2 saturation 96% on 2 L nasal cannula, blood pressure 127/82. GENERAL: She is disoriented and somnolent, but arousable to sternal rub. HEENT: Extraocular muscles appear to be intact. Sclerae are anicteric. NECK: Supple without lymphadenopathy. Her mucous membranes are dry. LUNGS: Clear to auscultation anteriorly with decreased breath sounds in the bases bilaterally. CARDIOVASCULAR: Regular rhythm. ABDOMEN: Hypoactive bowel sounds. Soft, nontender, nondistended. EXTREMITIES: No edema. No petechiae. LABORATORY DATA: White blood cell count 14, hemoglobin 9.4, platelets 219. Electrolytes are normal with the exception of a calcium of 11.6 on admission here, calcium was 14 at the outside ER. Brain MRI done on this admission shows multiple enhancing supra and infratentorial brain lesions consistent with metastases. The largest measured 8 mm in the posterior medial aspect of the left temporal and 6 mm in left anterior cj. Several of these lesions also have adjacent vasogenic edema. ASSESSMENT: Ms. Gimenez is a 64-year-old female with, 1. New onset brain metastases secondary to metastatic breast cancer. 2. Hypercalcemia secondary to metastatic breast cancer. 3. Somnolence and disorientation secondary to the above. 4. Chronic anemia. 5. Chronic pleural effusions, likely secondary to Taxotere-based chemotherapy. PLAN: 1. I discussed the diagnosis and prognosis with her and her son. The patient was unable to understand the significance of the situation. I have also discussed the case with Dr. Lane. Right now, Dr. Lane does not think that she is treatable given the encephalopathy. I discussed with her that we could wait another day or two to see if this improves and we also discussed hospice care. This is something that we have discussed in the clinic as well and he and Ms. Gimenez's son are both amenable to hospice. In fact, they would like her to be transferred to the inpatient unit. 2. We will consult Case Management to see if inpatient hospice is an option. 3. I would increase her dexamethasone to 4 mg IV q.6 for now. 4. She will be maintained on IV fluids for now until she is transferred to the hospice facility. Job ID: [id number]
--- NOTE | 2020-07-20 15:36 | CON ---
DATE OF CONSULTATION: 07/20/2020 REASON FOR CONSULTATION: Ms. Gimenez is a 64-year-old female with a history of metastatic breast cancer, who has been found to have brain metastasis. I was asked to see her for consideration of radiation therapy. Ms. Gimenez is known to me. She was diagnosed with breast cancer in 2016. At that time, she had a stage IIB, T3 N0 M0 invasive lobular carcinoma of the left breast that was estrogen receptor positive, progesterone receptor negative, and HER2 receptor negative. She received adjuvant chemotherapy and then adjuvant radiation therapy to the chest wall and regional lymph nodes after her mastectomy. Her radiation was completed on 10/13/2015. She subsequently relapsed with metastatic disease in the bone and has also had malignant pleural effusions. She has been on chemotherapy with Dr. Calvillo, although she has not had chemotherapy for about 1-month time. She recently was found to be confused and was seen in the emergency room. Her calcium was elevated to about 14. She also had a CT scan of the head that suggested multiple intercranial lesions consistent with brain metastasis. She was treated with fluids and Zometa and started on Decadron and was admitted to the hospital for evaluation. I am seeing her today at Dr. Calvillo's request to discuss options with radiation therapy. Presently, she is very confused and unable to give history. There is no family with her at the bedside. She does follow some simple commands. She does not report any headaches and denies any areas of pain or changes in her breathing. PAST MEDICAL HISTORY: 1. Left breast lobular cancer as mentioned above. 2. Status post tonsillectomy. MEDICATIONS: 1. Dexamethasone. 2. Lovenox. 3. Insulin p.r.n. ALLERGIES: NO KNOWN MEDICAL ALLERGIES. SOCIAL HISTORY: She previously smoked one-half pack per day for 30 years, but stopped smoking in 2014. She drinks approximately 2 alcoholic beverages per year. She lives with her in [place], [place]. She is a retired kitchen worker. FAMILY HISTORY: Her father from prostate cancer in his early 80s. She had a paternal uncle with prostate cancer. There is no family history of breast or ovarian cancer or other malignancies. REVIEW OF SYSTEMS: Twelve-system review of system was attempted, but was currently unable to be performed. PHYSICAL EXAMINATION: VITAL SIGNS: Height 5 feet 1 inch, weight 90 pounds. Blood pressure 127/82, pulse is 107, respirations are 17, temperature is 97.7, and O2 saturation is 96%. CONSTITUTIONAL: She is confined to the bed. She is very confused. She seems oriented to person, but not to place or time or situation. She does follow some simple commands. Karnofsky performance status is 30%. EYES: I am unable to get her to open her eyes. ENT: Oral cavity appears very dry to the mucosa. No visible lesion is present. NECK: Supple without cervical or supraclavicular adenopathy. No thyromegaly. Larynx midline. LUNGS: Decreased breath sounds in the bases. Otherwise, clear to auscultation. HEART: Regular rate and rhythm without murmur. No lower extremity edema. ABDOMEN: Soft, nontender, and nondistended without mass or hepatosplenomegaly. Liver percusses to normal size. Bowel sounds present. NEUROLOGIC: She is moving all 4 extremities. However, she appears to be confined to the bed. LABORATORY DATA: CBC revealed a white blood cell count of 14,000 with hemoglobin of 9.4, hematocrit 29.2, and platelet count 219,000. Chemistry group shows a calcium of 11.6 today. Her electrolytes are otherwise normal. RADIOLOGIC DATA: CT scan of the head without contrast was personally reviewed and again shows multiple lesions that are likely to be metastasis, but are difficult to define because no contrast was used. Infarcts are felt to be less likely. Chest x-ray shows bilateral pleural effusions with the left being worse than the right. Bone scan this past November reveals numerous areas of bone metastasis. CT of the chest performed in late May was also personally reviewed and showed multiple areas of bone metastasis with no evidence of cord compression. She again had bilateral pleural effusions. ASSESSMENT: Ms. Gimenez is a 64-year-old female, who likely has bone metastasis now from breast cancer. However, her biggest difficulty is that she appears to be encephalopathic. Likely this is from her hypercalcemia. PLAN: She has a very poor performance status at the present time and is not in condition to be treated with radiation therapy even with whole-brain radiation therapy. We would need to obtain an MRI before making a plan of treatment, but at the present time she is not able to cooperate with an MRI and her encephalopathy is bad enough that she would not be able to hold still for the MRI, making this a not very usable exam. I think our options at this point are either; 1. To see if for encephalopathy improves over the next 1 or 2 days. If it does improve, then we could consider whether she would be a candidate for whole-brain radiation therapy. 2. Hospice care as her performance status is so poor. I will discuss this with Dr. Calvillo, who is her medical oncologist. We will continue to evaluate her as long as she is in the hospital to see if her encephalopathy improves to make a determination whether she would become treatable, but again at the present time she is not able to undergo any radiation therapy. Thank you for this interesting consultation. Job ID: [id number]
[2020-07-20] MEDS: Dexamethasone 4 mg/ml Vial SLOW IVP SCH ×2 (15:43→21:27)
[2020-07-21 04:34] VITALS: BMI 18.2
[2020-07-21] MEDS: Dexamethasone 4 mg/ml Vial SLOW IVP SCH ×4 (04:40→20:28)
[2020-07-21] MEDS: Sodium Chloride 0.9% 1,000 ML IV SCH ×3 (08:17→20:27)
[2020-07-21] MEDS: Enoxaparin Sodium 40 MG/0.4 ML SYRINGE SC SCH (08:17)
--- NOTE | 2020-07-21 15:00 | PDOC.HOSPP ---
- Subjective Encounter Date: 07/21/20 Subjective: Patient remains unresponsive to external stimuli - Objective Vital Signs & Weight: Vital Signs (12 hours) Temp Pulse Resp BP Pulse Ox 07/21/20 12:00 97.2 F L 96 18 148/70 H 95 07/21/20 07:56 94 L 07/21/20 07:31 96.9 F L 101 H 17 158/67 H 96 07/21/20 04:00 98.4 F 103 H 15 132/84 94 L Weight Admit Weight 88 lb 3.2 oz Weight 96 lb 7 oz I&O: 07/20/20 07/21/20 07/22/20 06:59 06:59 06:59 Intake Total 797 2520 Output Total 750 Balance 797 1770 Result Diagrams: 07/20/20 03:57 07/20/20 03:57 Additional Labs: Accuchecks 07/21/20 07/21/20 07/21/20 11:19 06:21 06:02 POC Glucose 86 79 87 07/20/20 07/20/20 20:29 16:47 POC Glucose 97 84 Hospitalist ROS - Medication Medications: Active Medications Generic Name Dose Route Start Last Admin Trade Name Freq PRN Reason Stop Dose Admin Dexamethasone 4 mg 07/20/20 15:00 07/21/20 08:17 Dexamethasone 4 Mg/Ml Vial SLOW IVP 4 mg 0300,0900,1500,2100 JENNIFER Administration Enoxaparin Sodium 40 mg 07/20/20 09:00 07/21/20 08:17 Enoxaparin Sodium 40 Mg/0.4 Ml Syringe SC 40 mg 0900 JENNIFER Administration Sodium Chloride 1,000 mls @ 120 mls/hr 07/19/20 21:45 07/21/20 08:17 Normal Saline 0.9% IV 1,000 mls .[id number] JENNIFER Administration Sodium Chloride 10 ml 07/20/20 09:00 07/21/20 08:18 Flush - Normal Saline 10 Ml Syringe IVF Not Given Q12HR JENNIFER Hospitalist Exam Vitals: Vital Signs (12 hours) Temp Pulse Resp BP Pulse Ox 07/21/20 12:00 97.2 F L 96 18 148/70 H 95 07/21/20 07:56 94 L 07/21/20 07:31 96.9 F L 101 H 17 158/67 H 96 07/21/20 04:00 98.4 F 103 H 15 132/84 94 L Weight Admit Weight 88 lb 3.2 oz Weight 96 lb 7 oz General Appearance: NAD General - other findings: Profoundly encephalopathic Heart: RRR, no murmur, no gallops, no rubs, normal peripheral pulses Heart - other findings: Tachycardic Respiratory: CTAB, no wheezes, no rales, no ronchi, normal chest expansion, no tachypnea, normal percussion Gastrointestinal: soft, non-tender, non-distended, normal bowel sounds, no palpable masses, no hepatomegaly, no splenomegaly, no bruit Extremities: no cyanosis, no clubbing, no edema Hosp A/P (1) Acute metabolic encephalopathy Code(s): G93.41 - METABOLIC ENCEPHALOPATHY Status: Acute (2) Metastatic breast cancer Code(s): C50.919 - MALIGNANT NEOPLASM OF UNSP SITE OF UNSPECIFIED FEMALE BREAST Status: Chronic (3) Brain metastases Code(s): C79.31 - SECONDARY MALIGNANT NEOPLASM OF BRAIN Status: Acute (4) Hypercalcemia Code(s): E83.52 - HYPERCALCEMIA Status: Acute (5) Moderate protein-calorie malnutrition Code(s): E44.0 - MODERATE PROTEIN-CALORIE MALNUTRITION Status: Chronic (6) CKD (chronic kidney disease) stage 2, GFR 60-89 ml/min Code(s): N18.2 - CHRONIC KIDNEY DISEASE, STAGE 2 (MILD) Status: Chronic (7) Anemia Code(s): D64.9 - ANEMIA, UNSPECIFIED Status: Chronic Qualifiers: Other causes of anemia: antineoplastic chemotherapy - Plan Acute metabolic encephalopathy: Likely secondary to brain metastases or severe hypercalcemia. So far her calcium has come down and her encephalopathy seems to be getting worse. Brain metastases: CT scan suggest brain metastases. MRI has been obtained. Results pending. Continue with aggressive Decadron. Metastatic breast cancer with recurrence: Given the patient's very poor functional status due to the metastatic brain lesions the patient is not a candidate for radiation intervention. Dr. Calvillo discussed the case with the patient's and son. Plan was for inpatient hospice however the patient has been deemed an appropriate for inpatient hospice through [facility]. Patient's feel strongly he would not be able to care for her at home. Discussed with case management. They will follow up with the patient's . Hoping to find a better option for them to have hospice services.
--- NOTE | 2020-07-21 16:00 | PDOC.MOPN ---
Interval History: slightly more responsive today but confused. O2 on. - Vital Signs Vital Signs: Vital Signs (12 hours) Temp Pulse Resp BP Pulse Ox 07/21/20 12:00 97.2 F L 96 18 148/70 H 95 07/21/20 07:56 94 L 07/21/20 07:31 96.9 F L 101 H 17 158/67 H 96 07/21/20 04:00 98.4 F 103 H 15 132/84 94 L Weight Admit Weight 88 lb 3.2 oz Weight 96 lb 7 oz - Physical Exam General: Mild distress HEENT: Other Lungs: Clear to auscultation Cardiovascular: Regular rate Abdomen: Normal bowel sounds Neurological: Other - Labs Result Diagrams: 07/20/20 03:57 07/20/20 03:57 Lab results: Laboratory Results - last 24 hr 07/21/20 11:19: POC Glucose 86 07/21/20 06:21: POC Glucose 79 07/21/20 06:02: POC Glucose 87 07/20/20 20:29: POC Glucose 97 07/20/20 16:47: POC Glucose 84 Status: lab reviewed by me A/P - Problem (1) Brain metastases Current Visit: Yes Code(s): C79.31 - SECONDARY MALIGNANT NEOPLASM OF BRAIN Status: Acute (2) Breast cancer Current Visit: No Status: Chronic - Plan Plan: [facility] declined inpatient services Outpatient referral placed.
[2020-07-22] MEDS ORDERED: Lorazepam 2 MG/ML VIAL SLOW IVP SCH ×2 (00:45→02:45)
[2020-07-22] MEDS: Dexamethasone 4 mg/ml Vial SLOW IVP SCH ×3 (03:03→14:06)
[2020-07-22] MEDS: Sodium Chloride 0.9% 1,000 ML IV SCH (07:32)
[2020-07-22] MEDS: Enoxaparin Sodium 40 MG/0.4 ML SYRINGE SC SCH (08:09)
--- NOTE | 2020-07-22 13:06 | PDOC.DS.DS ---
Provider Date of Admission: 07/19/20 21:32 Date of Discharge: 07/22/20 Admitting Provider: Tim Gilliland MD Consultations: Oncology, Radiation Oncology Primary Care Physician: Sagar Morley MD Course Hospital Course: This patient is a 64-year-old female with a history of known metastatic breast cancer with a recent history of recurrence of her tumor marker elevation. Patient subsequently developed significant encephalopathy that progressed over several days. Patient's finally brought her to the emergency department in [place]. CT scan of the head appeared to reveal significant metastatic disease. Patient was subsequently transferred to [place] for admission for evaluation by radiation oncology. Patient's encephalopathy appeared to progress fairly rapidly to the point where she was minimally responsive and interactive. She was seen in consultation by radiation oncology and medical oncology. The patient's MRI of the brain confirmed multiple sites of metastatic disease. Given her functional status it was felt she was not a candidate for therapeutic intervention. Dr. Calvillo spoke with the patient's family and ultimately the decision was made for hospice. An attempt was made to transfer to inpatient hospice however the patient apparently did not qualify. Her subsequently opted for home hospice care. This was arranged and the patient was discharged to home on 07/22/2020 after equipment had been placed. Resuscitation Status: 07/20/20 14:37 Resuscitation Status Routine Resuscitation Status: DNAR: NO Resuscitation Discussed with: Patient's Lab Results: 07/20/20 03:57 07/20/20 03:57 Vitals: Vital Signs (12 hours) Temp Pulse Resp BP Pulse Ox 07/22/20 11:15 97.4 F L 135 H 22 H 128/76 93 L 07/22/20 08:00 98.3 F 118 H 20 139/88 93 L 07/22/20 04:00 98.3 F 111 H 24 H 124/85 96 Weight Admit Weight 88 lb 3.2 oz Weight 97 lb Physical Exam: The patient was seen and examined on the day of discharge. General Appearance: ill appearing General - other findings: Encephalopathic and unresponsive Respiratory: rales (Modest bilateral) Cardiovascular: RRR, no murmur, no gallops Gastrointestinal: soft, non-distended, normal bowel sounds Extremities: no cyanosis, no clubbing, no edema PSYCH: somnolent, lethargic Problem (1) Acute metabolic encephalopathy Code(s): G93.41 - METABOLIC ENCEPHALOPATHY Status: Acute (2) Metastatic breast cancer Code(s): C50.919 - MALIGNANT NEOPLASM OF UNSP SITE OF UNSPECIFIED FEMALE BREAST Status: Chronic (3) Brain metastases Code(s): C79.31 - SECONDARY MALIGNANT NEOPLASM OF BRAIN Status: Acute (4) Hypercalcemia Code(s): E83.52 - HYPERCALCEMIA Status: Acute (5) Moderate protein-calorie malnutrition Code(s): E44.0 - MODERATE PROTEIN-CALORIE MALNUTRITION Status: Chronic (6) CKD (chronic kidney disease) stage 2, GFR 60-89 ml/min Code(s): N18.2 - CHRONIC KIDNEY DISEASE, STAGE 2 (MILD) Status: Chronic (7) Anemia Code(s): D64.9 - ANEMIA, UNSPECIFIED Status: Chronic Qualifiers: Other causes of anemia: antineoplastic chemotherapy Time Spent in discharge related activities (mins): 35 Plan Home Medications: Medication Instructions Recorded Confirmed Type No Known 07/19/20 07/19/20 History Allergies: avocado Allergy (Severe, Verified 07/19/20 21:54) Swollen Lips nut - unspecified Allergy (Severe, Verified 07/19/20 21:54) Swollen Lips Activity:: Activity as Tolerated Nourishment:: No Restrictions Referrals: [facility] [Other] (Home with hospice services.) Sagar Morley MD [Primary Care Provider] - 7 Days Disposition: HOSPICE-HOME Quality CORE MEASURES:: N/A
[2020-07-22] MEDS ORDERED: Lorazepam 2 MG/ML VIAL SLOW IVP PRN (13:21)
[2020-07-22] MEDS ORDERED: Morphine 2 MG/ML VIAL SLOW IVP PRN (13:21)
[2020-07-22 15:19] VITALS: BP 127/92; TEMP 97.1
== END 2020-07-22 16:40 | disposition hospice, home (50) | DRG 54 ==
LOC: 2NO 02:05 → OBSVTOIN 21:32
PROVIDERS: ADMIT Student in an Organized Health Care Education/Training Program; ATTEND Internal Medicine
DX: C79.31 Secondary malignant neoplasm of brain (principal); G93.41 Metabolic encephalopathy; C79.51 Secondary malignant neoplasm of bone; J91.8 Pleural effusion in other conditions classified elsewhere; Z66 Do not resuscitate; Z51.5 Encounter for palliative care; E44.0 Moderate protein-calorie malnutrition; Z68.1 Body mass index [BMI] 19.9 or less, adult; E83.52 Hypercalcemia; N18.2 Chronic kidney disease, stage 2 (mild); D64.81 Anemia due to antineoplastic chemotherapy; T45.1X5A Adverse effect of antineoplastic and immunosuppressive drugs, initial encounter; C50.919 Malignant neoplasm of unspecified site of unspecified female breast; R73.9 Hyperglycemia, unspecified; Z91.018 Allergy to other foods
CPT/HCPCS: 36415; 36416; 70553; 80048; 85025; A9579; J1100; J1650; J2060